=== PATIENT | male | born 1935 | race Caucasian/White ===

== ENCOUNTER 2016-12-22 11:06 | Inpatient (IN) ==
[2016-12-22] MEDS ORDERED: ASPIRIN PO STA (11:16)
[2016-12-22 12:06] LABS: MANUAL DIFF NEEDED? NO
--- NOTE | 2016-12-22 12:09 | Diag Imaging Result Document ---
PROCEDURE NAME: CHEST-2 VIEWS - 12/22/2016 PA AND LATERAL RADIOGRAPH OF THE CHEST: COMPARISON: 07/21/2016. FINDINGS: The lungs are grossly clear. There is no discrete pleural fluid collection or evidence of pneumothorax. The cardiomediastinal silhouette and upper airway are grossly unremarkable. IMPRESSION: No evidence of acute chest pathology.
--- NOTE | 2016-12-22 12:15 | PROVIDER DOCUMENTATION ---
This chart was entered by Soniya Samuels Scribe, acting as scribe for Danni Post MD. HPI-Chest Pain - General Chief Complaint: Chest Pain Stated Complaint: HEAVINESS IN CHEST/DISORIENTED Time Seen by Provider: 12/22/16 11:20 Source: patient Allergies/Adverse Reactions: Patient Allergies Allergy/AdvReac Type Severity Reaction Status Date / Time Sulfa (Sulfonamide Allergy RASH Verified 12/22/16 13:14 Antibiotics) adhesive AdvReac ITCHING Verified 12/22/16 13:14 Home Medications: Home Medication List Medication Instructions Recorded Confirmed Last Taken Type Atorvastatin Calcium [Lipitor] 20 mg PO QHS 04/02/14 12/22/16 12/22/16 08:00 History Insulin Glargine [Lantus] 50 unit SUBQ BID 04/02/14 12/22/16 1 Day Ago History Insulin Glulisine [Apidra] 40 unit SUBQ QAM & NOON 03/10/15 12/22/16 1 Day Ago History Insulin Glulisine [Apidra] 40 unit SUBQ QHS 05/08/16 12/22/16 1 Day Ago History Lorazepam [Ativan] 1 mg PO DAILY 05/08/16 12/22/16 12/21/16 20:00 History Pantoprazole Sodium [Protonix] 40 mg PO ACB 05/08/16 12/22/16 12/22/16 08:00 History Insulin Glulisine [Apidra] 40 unit SUBQ ORDERED 07/19/16 12/22/1616 History Morphine E.r. [Ms Contin] 15 mg PO TID 07/19/16 12/22/16 12/22/16 08:00 History Amitriptyline [Elavil] 50 mg PO BID 12/22/16 12/22/16 12/21/16 08:00 History Aspirin [Aspir-Low] 81 mg PO DAILY 12/22/16 12/22/16 12/22/16 08:00 History Carbidopa/Levodopa [Carbidopa-Levo 1 tab PO BID 12/22/16 12/22/16 12/22/16 08: 00 History 25-100 Tab] Carvedilol 6.25 mg PO BID 12/22/16 12/22/16 12/22/16 08:00 History Fexofenadine [Wendy] 180 mg PO DAILY 12/22/16 12/22/16 12/22/16 08:00 History Furosemide 20 mg PO DAILY 12/22/16 12/22/16 12/22/16 08:00 History Glycopyrrolate [Robinul] 1 mg PO DAILY 12/22/16 12/22/16 12/22/16 08:00 History Multivit with Min #56/FA/K/Q10 1 tab PO DAILY 12/22/16 12/22/16 12/22/16 08:00 History [Dekas Plus Chewable Tablet] [place]-3 Fatty Acids/Fish Oil 1 cap PO DAILY 12/22/16 12/22/16 12/22/16 08:00 History [[place] 3 1,000 mg Softgel] Ticagrelor [Brilinta] 90 mg PO BID 12/22/16 12/22/16 12/22/16 08:00 History Valsartan 24 mg PO BID 12/22/16 12/22/16 12/22/16 08:00 History Venlafaxine [Effexor] 37.5 mg PO HS 12/22/16 12/22/16 12/21/16 20:00 History - History of Present Illness-CP Nature of Presenting Problem: PT IS A 81YOM PRESENTING TO THE ED C/O CP. PT HAD A STENT PLACED 3 DAYS PRIOR IN [place] UNDER [address] WITH THC. THIS AM PT BECAME COOL, CLAMMY, DIAPHORETIC, WITH SOME CHEST PAIN. PT TOOK ASA AT HOME BUT DENIES ANY N/V/D, FEVER OR SOB. DURING EXAM PT BECAME CLAMMY AGAIN AND A REPEAT EKG WAS COMPLETED. HE DENIES CP AT THIS TIME. Location: reports: central Chest Pain Radiation: reports: neck (RIGHT NECK), back Quality of Pain: reports: pressure, tightness Severity in ED: mild, moderate Onset/Duration: just prior to arrival Timing: still present, intermittent Context/Activities at Onset: reports: light activity Modifying Factors: improves with: nothing Associated Symptoms: reports: back pain, diaphoresis, weakness. denies: abdominal pain, dizziness, fatigue, fever/chills, nausea, shortness of breath, vomiting Nitro Today/Relief: no nitro taken today Aspirin Treatment Today: 81 mg x 1, 325 mg x 1, provided by ED Prior Chest Pain/Cardiac Workup: reports: cardiac cath (3 DAYS PRIOR), heart attack Similar Symptoms Previously?: Yes Recently Seen Here or By Another Healthcare Provider: Yes (DR LANE DID HEART CATH ON December) Review of Systems - Adult - REVIEW OF SYSTEMS - ADULT Constitutional: reports: no symptoms reported Eyes: reports: no symptoms reported Ears, Nose, Mouth & Throat: reports: no symptoms reported Cardiovascular: reports: see HPI, chest pain. denies: irregular heart rate, syncope Respiratory: reports: no symptoms reported Gastrointestinal: reports: no symptoms reported Genitourinary: reports: no symptoms reported Musculoskeletal: reports: no symptoms reported Integumentary: reports: see HPI, other (CLAMMY, DIAPHORETIC). denies: hair loss , rash, skin thickening Neurological: reports: no symptoms reported Psychiatric: reports: no symptoms reported Endocrine: reports: no symptoms reported Hematologic/Lymphatic: reports: no symptoms reported Allergic/Immunologic: reports: no symptoms reported All Other Systems: Reviewed and Negative Past History - Adult - PAST MEDICAL HISTORY-ADULT Review of Records: reports: Old Records Reviewed, Nursing Assessment Review, Medications Reviewed, Social history reviewed & non-contributory. Major Childhood Illnesses: reports: denies history Cardiovascular: reports: CAD, HTN Respiratory: reports: denies history Gastrointestinal: reports: cancer (colon) Obstetrical/Gynecological: reports: denies history Genitourinary: reports: denies history Musculoskeletal: reports: denies history Neurological: reports: denies history Endocrine/Immune: reports: Diabetes Other Conditions: reports: other (neuropathy, decrease of feeling in his jayna LE from the knees down) - PRIOR SURGERIES/PROCEDURES Surgical/Procedure History: reports: cholecystectomy, other (colon surgery) - IMMUNIZATION STATUS Childhood Immunizations: See Nurse Assessment Flu Vaccine: See Nurse Assessment - FAMILY HISTORY Family History: reviewed, not pertinent - SOCIAL HISTORY Smoking: denies, non-smoker Substance Use: none/never, denies Alcohol Use Frequency: never Living Situation: family Physical Exam-General - PHYSICAL EXAM-ADULT Initial Vital Signs Reviewed: Yes - CONSTITUTIONAL General Appearance: appears well, alert, no apparent distress, anxious. negative: slow to respond, combative - EYES Eyes: PERRL/EOMI - HEAD, EARS, NOSE, MOUTH & THROAT HENMT: normocephalic/atraumatic - NECK Neck: non-tender, full range of motion - RESPIRATORY Respiratory: chest non-tender, lungs clear, normal breath sounds, no pleuratic chest pain, no respiratory distress - CARDIOVASCULAR Cardiovascular: normal peripheral pulses, regular rate, rhythm, no edema, no gallop, no JVD, no murmur - GASTROINTESTINAL (ABDOMEN) Abdominal Exam: normal bowel sounds, non tender, soft, no organomegaly, no pulsatile mass - MUSCULOSKELETAL Back Exam: normal inspection, no CVA tenderness, no vertebral tenderness, CVA tenderness, decreased range of motion Extremity: normal range of motion, non-tender, normal gait - SKIN Integumentary: normal color, normal turgor, warm/dry - NEUROLOGIC Neurologic: grossly normal, no motor/sensory deficits - PSYCHIATRIC Psych/Mental Status: normal mood/affect, normal thought content, normal thought process, oriented x 3 Progress - PLAN OF CARE/RESULTS Progress/Plan/Lab Results: Vital Signs - 8 hr 12/22/16 11:14 12/22/16 13:12 12/22/16 13:24 Temperature 99.0 F Pulse Rate 97 H 91 H 90 Respiratory Rate 18 19 18 Blood Pressure 136/71 104/55 104/55 O2 Sat by Pulse Oximetry 99 94 L 95 Laboratory Results - last 24 hr 12/22/16 12/22/16 12/22/16 11:52 11:52 11:52 WBC 7.78 RBC 5.21 Hgb 15.0 Hct 44.7 MCV 85.8 MCH 28.8 MCHC 33.6 RDW Std Deviation 13.7 Plt Count 245 MPV 10.1 Immature Gran % (Auto) 0.0 Neut % (Auto) 60.3 Lymph % (Auto) 25.4 Mcdonough % (Auto) 8.9 Eos % (Auto) 5.0 Baso % (Auto) 0.4 Immature Gran # (Auto) 0.00 Neut # (Auto) 4.69 Lymph # (Auto) 1.98 Mcdonough # (Auto) 0.69 H Eos # (Auto) 0.39 Baso # (Auto) 0.03 PT INR PTT (Actin FS) D-Dimer 0.41 Sodium 133 L Potassium 4.2 Chloride 95 L Carbon Dioxide 24 L Anion Gap 14 BUN 18 Creatinine 1.2 Estimated GFR/1.73 m2 58 BUN/Creatinine Ratio 15 Glucose 297 H Calculated Osmolality 279 Calcium 8.8 Magnesium 1.4 L Total Bilirubin 0.62 AST 18 ALT 8 L Alkaline Phosphatase 143 H Creatine Kinase 277 H Creatine Kinase Index 2.9 H CK-MB (CK-2) 8.16 H Troponin T [id number] Pept Total Protein 7.1 Albumin 3.9 Globulin 3.2 Albumin/Globulin Ratio 1.2 12/22/16 12/22/16 12/22/16 11:52 11:52 11:52 WBC RBC Hgb Hct MCV MCH MCHC RDW Std Deviation Plt Count MPV Immature Gran % (Auto) Neut % (Auto) Lymph % (Auto) Mcdonough % (Auto) Eos % (Auto) Baso % (Auto) Immature Gran # (Auto) Neut # (Auto) Lymph # (Auto) Mcdonough # (Auto) Eos # (Auto) Baso # (Auto) PT 9.9 INR 0.95 PTT (Actin FS) 27.2 D-Dimer Sodium Potassium Chloride Carbon Dioxide Anion Gap BUN Creatinine Estimated GFR/1.73 m2 BUN/Creatinine Ratio Glucose Calculated Osmolality Calcium Magnesium Total Bilirubin AST ALT Alkaline Phosphatase Creatine Kinase Creatine Kinase Index CK-MB (CK-2) Troponin T 0.033 [id number] Pept 332 Total Protein Albumin Globulin Albumin/Globulin Ratio Orders Category Date Time Status Cardiac Monitoring DIRECTED Care 12/22/16 11:16 Active Saline Loc NOW Care 12/22/16 11:16 Active CHEST-2 VIEWS [RAD] Stat Exams 12/22/16 11:16 Draft CBC WITH ELECTRONIC DIFF [HEME] Stat Lab 12/22/16 11:52 Completed CK PROFILE [SP CHEM] Stat Lab 12/22/16 11:52 Completed CK PROFILE [SP CHEM] Urgent Lab 12/22/16 14:41 Ordered COMPREHENSIVE METABOLIC PANEL [CHEM] Stat Lab 12/22/16 11:52 Completed D-DIMER [CHEM] Stat Lab 12/22/16 11:52 Completed MAGNESIUM [CHEM] Stat Lab 12/22/16 11:52 Completed PRO B-NATRIURETIC PEPTIDE Stat Lab 12/22/16 11:52 Completed PROTIME WITH INR [COAG] Stat Lab 12/22/16 11:52 Completed PTT [COAG] Stat Lab 12/22/16 11:52 Completed TROPONIN T Stat Lab 12/22/16 11:52 Completed TROPONIN T Urgent Lab 12/22/16 14:41 Ordered Aspirin Med 12/22/16 11:16 Discontinued 325 mg PO STAT STA Magnesium Sulfate 2 gm/S.w.i. [Magnesium Sulfate 2 gm/S Med 12/22/16 12:59 Discontinued .w.i] 2 gm in 50 ml IV NOW Nitroglycerin Med 12/22/16 14:28 Discontinued 0.5 inch TOP NOW ONE EKG [EKG] Stat Ther 12/22/16 11:16 Ordered Result Diagrams: 12/22/16 11:52 12/22/16 11:52 - CONSULTS/PCP/HOSPITALIST Notification #1 *Consult/PCP/Hospitalist*: [facility] Time Discussed: 13:33 ([facility] WILL ACCEPT PT FOR TRANSFER IF PTS CARDIAC ENZYMES ELEVATED) Reason/Comments: [facility] REQUESTS PT TO BE CONSULTED WITH LOCAL CARDIOLOGY FIRST Consult Disposition: other #2 Consult: LUIS Time Discussed: 13:34 (DR SMITH SUGGESTS PT TO BE TRANSFERED TO [facility] BUT WILL WAITON LABS TO MAKE FINAL DECISION) Consult Disposition: other Time Discussed: 14:55 Reason/Comments: Admit to Dr. Carrion Consult Disposition: Admit Departure - Departure Time of Disposition Decision: 14:55 DIAGNOSIS: Post-op pain Chest pain Qualifiers: Chest pain type: unspecified Qualified Code(s): R07.9 - Chest pain, unspecified Disposition: ADMITTED INPATIENT 09 Certified Medical Emergency: Emergent Condition: Stable Referrals and Follow-Ups: Dez Galicia MD [Primary Care Provider] - - Critical Care Note This patient required my direct & personal management of CC.: No This chart was documented by the indicated scribe, (Soniya Samuels Scribe) and accurately reflects the services I performed and decisions made by me, Danni Post MD, as attested by the provider's signature.
--- NOTE | 2016-12-22 12:15 | ED EKG INTERP ---
This chart was entered by Soniya Samuels Scribe, acting as scribe for Danni Post MD. EKG Interpretation - EKG Time of EKG reading by physician:: 11:41 EKG Read and Signed by:: Danni Post EKG Interpretation (*Must complete 3 of following elements*): Abnormal Rate: 93 Rhythm: sr w/1st degree AV BLOCK Vale: left QRS: LBB Prior EKG Comparison: unchanged from prior This chart was documented by the indicated scribe, (Soniya Samuels Scribe) and accurately reflects the services I performed and decisions made by Sincere pettit Wenli X, MD, as attested by the provider's signature.
--- NOTE | 2016-12-22 12:15 | ED EKG INTERP ---
This chart was entered by Soniya Samuels Scribe, acting as scribe for Danni Post MD. EKG Interpretation - EKG Time of EKG reading by physician:: 11:12 EKG Read and Signed by:: Danni Post EKG Interpretation (*Must complete 3 of following elements*): Abnormal Rate: 92 Rhythm: SR W/ 1ST DEGREE AV BLOCK [place]: left QRS: LBB This chart was documented by the indicated scribe, (Soniya Samuels Scribe) and accurately reflects the services I performed and decisions made by me, Danni Post MD, as attested by the provider's signature.
[2016-12-22 12:17] LABS: BASO% 0.4 % (0.0-0.8); EOS# 0.39 X1000 (0.0-0.7); HEMATOCRIT 44.7 % (42.0-52.0); LYMPH# 1.98 X1000 (1.2-3.4); LYMPH% 25.4 % (20.5-51.1); MCH 28.8 PG (27-31); MCHC 33.6 g/dL (33-37); MCV 85.8 FL (81-99); MONO# 0.69 X1000 (0.11-0.59); MONO% 8.9 % (1.7-9.3); MPV 10.1 FL (7.4-10.4); NEUT% 60.3 % (42.2-75.2); PLT 245 X1000 (130-400); RBC 5.21 XMIL (4.7-6.1)
[2016-12-22 12:20] LABS: INR 0.95; PROTIME 9.9 Seconds (9.2-11.7); PTT 27.2 Seconds (22.0-36.0)
[2016-12-22 12:32] LABS: ALBUMIN 3.9 g/dL (3.5-5.0); CALCIUM 8.8 mg/dL (8.8-10.2); MAGNESIUM 1.4 mg/dL (1.5-2.7); POTASSIUM 4.2 mmol/L (3.5-5.1); TOTAL BILIRUBIN 0.62 mg/dL (0.20-1.00); TOTAL PROTEIN 7.1 g/dL (6.3-8.3)
[2016-12-22] MEDS ORDERED: MAGNESIUM SULFATE 2 GM/S.W.I. 2 GM/50 ML IVPB IV ONE (12:59)
[2016-12-22 13:10] LABS: CK INDEX 2.9 (0.0-2.5); CK-MB 8.16 ng/mL (0.0-5.0)
[2016-12-22] MEDS ORDERED: NITROGLYCERIN TOP ONE (14:28)
--- NOTE | 2016-12-22 15:22 | CONSULTATION ---
DATE OF CONSULTATION: 12/22/2016 Mr. Umaña is a 81-year-old gentleman with known history of coronary artery disease, LV dysfunction, heart failure. Underwent stent placement to his right coronary artery on last. Had been discharged from [facility]. Subsequently he had episode off chest discomfort associated with diaphoresis, shortness of breath yesterday and this morning he had other episodes of chest discomfort associated with diaphoresis and shortness of breath. He came to the emergency room. Electrocardiogram did not reveal any acute ST-T changes. At the time of my examination patient was pain free. He has been taking all his medications. He is also a diabetic and has been taking his medicines regularly. Since discharge from the hospital he has been started on Brilinta and all other of his home medications were continued. There are no palpitations. There is no syncope. REVIEW OF SYSTEMS: Fourteen point review of systems was done. GI System: There is no history of nausea, vomiting, diarrhea. There is no history of hematemesis or melena. Central Nervous System: No focal weakness to suggest a CVA or TIA. Genitourinary: There is no dysuria or hematuria. Respiratory: There is no history of cough, expectoration, hemoptysis. There is no history of fevers or chills. PAST MEDICAL HISTORY: 1. Coronary artery disease, status post multiple stent placements in the past, with last stent placement to the right coronary artery distal with a drug-eluting stent last . 2. History of recent worsening of LV dysfunction. 3. Diabetes. 4. He has a skin cancer on his scalp, undergone radiation therapy for the same. 5. Parkinson's features. 6. Diabetes mellitus. 7. Hyperlipidemia. HOME MEDICATIONS: Include Lantus insulin 550 units subcutaneous b.i.d. Atorvastatin 20. 40 units subcu in a.m. and noon time. Lorazepam 1 mg p.o. at bedtime. Protonix 40. Morphine extended release 15 mg p.o. t.i.d. for chronic pain. Robinul 1 mg p.o. daily. Aspirin 81 mg a day. Brilinta 90 mg p.o. b.i.d. Carbidopa L-dopa 1 tablet p.o. b.i.d. Lasix 20. Combination of valsartan, sacubitril 20 mg 1 tablet twice a day. Wendy 120. Effexor 37.5. Coreg 6.25 mg. ALLERGIES: He is allergic to sulfonamides and adhesive. SOCIAL HISTORY: He does not smoke. Does not drink. There is no history of alcohol abuse. PHYSICAL EXAMINATION: Vital Signs: Blood pressure was 108/70. Cardiovascular System: Normal jugular venous pressure. There is no thyromegaly. No carotid bruit. First and second heart sounds were heard. There is no S3 gallop. Respiratory System: Normal air entry. There are no crepitations and rhonchi. Abdomen: Soft, nontender. There was no guarding or rigidity. Bowel sounds were heard. Central nervous system: Alert, was moving extremities. Extremities: Examination of extremities revealed no pedal edema. Electrocardiogram first-degree AV block. Left bundle branch block. ASSESSMENT AND PLAN: Mr. Luis Fernando Umaña is a 81-year-old gentleman, had 2 episodes of chest discomfort associated with diaphoresis. Currently he is pain-free he underwent stent placement Drug-eluting to the right coronary artery this . He is currently stable. LABORATORY EXAMINATION: Revealed sodium 133, potassium 4.2. BUN 18, creatinine 1.2. CK 277, CK- MB 8, troponin normal at 0.033. He had similar enzymes at discharge from [facility]. Hematology: Hemoglobin 15, hematocrit 44, platelet count of 245,000. We will get serial cardiac enzymes. I will add nitropaste to his medical regimen and we will follow hospital course. Depending on his symptoms and cardiac enzymes we may need to perform a left heart catheterization which if required we will perform on Saturday. He has severe LV dysfunction. His coronary artery disease, is out of proportion to his LV dysfunction and this is recent worsening of his LV dysfunction. He is on multiple medications with beta-blockers and SHANT inhibitors. I have not made any changes. He is on insulin. Probably has a small vessel disease as well to account for his worsening LV dysfunction. I would recommend continuing his current medications for insulin. He has been diagnosed to have Parkinson's disease. He is on carbidopa. I have not made any changes. Hyperlipidemia, continue with his Lipitor. He has anxiety disorder, depression. I have not made any changes. He has been treated with chemotherapy/radiation for a skin cancer and is on medications for pain management as well. Would recommend continuing that. Thank you for the consult. We will follow hospital course. cc: Jordan Carlton MD
[2016-12-22 15:53] LABS: CK INDEX 2.8 (0.0-2.5); CK-MB 6.98 ng/mL (0.0-5.0)
[2016-12-22] MEDS ORDERED: APIDRA SUBQ SCH (16:53)
[2016-12-22] MEDS ORDERED: AMBIEN PO PRN (16:53)
[2016-12-22] MEDS ORDERED: TYLENOL PO PRN (16:53)
[2016-12-22] MEDS ORDERED: ZOFRAN IV PRN (16:53)
--- NOTE | 2016-12-22 16:57 | HISTORY AND PHYSICAL ---
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 Jordan Carlton. CHIEF COMPLAINT: Chest pain. HISTORY OF PRESENT ILLNESS: Mr. Umaña is a pleasant 81-year-old male with a history of known coronary artery disease status post stenting to the RCA only 3 days ago on at [facility]. He also has a history of diabetes mellitus on insulin, skin cancer on his scalp, Parkinson's and hyperlipidemia. He started having chest pain yesterday. He had 1 episode of chest pain while urinating. He reported some midsternal chest pain radiating up to his right ear. He was mildly diaphoretic. Today he was urinating and had another episode of midsternal chest pain this time radiating up to the right ear and right jaw. This is associated with shortness of breath and diaphoresis. There was no nausea or vomiting. He reports this is similar discomfort he felt previously prior to his stenting. He has been on Brilinta and aspirin since his stent. He has taken it every day. He denies any fever, chills, cough or congestion. No lower extremity edema or orthopnea. Currently he is pain-free. His EKG does not show anything acute, Dr. Carlton has already been consulted and seen the patient. Patient is likely going to be scheduled for heart catheterization on Saturday unless his cardiac enzymes turn positive and his pain continues to worsen then we will transfer him to [facility]. Currently he is stable as are his vital signs. PAST MEDICAL HISTORY: 1. Severe coronary artery disease with recent stenting to the RCA. 2. Systolic congestive heart failure with a known EF of about 25%. 3. Diabetes mellitus on home insulin. 4. Skin cancer status post excision from his scalp. 5. Parkinson disease. 6. Hyperlipidemia. 7. Chronic pain. 8. GERD. 9. Colon cancer. 1. Bladder cancer. SURGERIES: Cholecystectomy, partial colectomy, coronary stenting. SOCIAL HISTORY: Patient denies tobacco, alcohol or drug use. His is at the bedside. REVIEW OF SYSTEMS: Fourteen-point review of systems obtained and found to be negative with the exception of the HPI. FAMILY HISTORY: Noncontributory. ALLERGIES: Sulfa and adhesives. HOME MEDICATIONS: Elavil 50 mg b.i.d., aspirin 81 mg daily, Lipitor 20 mg at bedtime, carbidopa/levodopa 1 b.i.d., carvedilol 6.25 mg b.i.d., Wendy 180 mg p.o. daily, Lasix 20 mg daily, Robinul 1 mg daily, Lantus 50 units subcu b.i.d., Apidra 40 units subcutaneous as directed, Ativan 1 mg daily, MS Contin 15 mg t.i.d., multivitamin daily, [place]-3 fish oil daily, Protonix 40 mg p.o. as directed, Brilinta 90 mg b.i.d., valsartan 24 mg b.i.d., Effexor 37.5 mg p.o. at bedtime . PHYSICAL EXAMINATION: VITAL SIGNS: Blood pressure is 120/72, heart rate is 82, respiratory rate 18, O2 saturation is 94% on room air. GENERAL: This is an elderly male lying in hospital bed in no acute distress. NEUROLOGIC: The patient is awake, alert and oriented. He follows commands without focal deficits. HEENT: He head is normocephalic. He has about a 2 cm depth surgical wound to the crest of his scalp. There are a few different areas of varying degree of healing. Overall there is no erythema or edema. Pupils are equal, round, reactive to light. Oral mucosa is moist. Trachea is midline. Neck is supple. No JVD. No carotid bruits. CHEST: Clear to auscultation bilaterally. CV: Regular rate and rhythm. S1-S2 is noted. No murmurs, gallops, clicks, or rubs. GI: Soft, nondistended, nontender. Bowel sounds are positive. EXTREMITIES: Without edema, clubbing or cyanosis. Pulses are palpable bilaterally. DIAGNOSTIC DATA: WBC 7.7, hemoglobin 15, hematocrit 44.7, platelet count 245, 000. PT 9.9, INR 0.95, sodium 133, potassium 4.2, chloride 95, CO2 24, anion gap 14, BUN 18, creatinine 1.2, glucose is 297, calcium 8.8, magnesium 1.4, total bilirubin 0.62, AST 18, ALT 8 , alkaline phosphatase 143, CK 246, CK index is pending, CK-MB is pending. Troponin is 0.027, albumin 3.9. ASSESSMENT AND PLAN: 1. Unstable angina: We will continue his home medications including dual anti- platelet therapy. Dr. Carlton is already on board. We will continue with nitrates and pain medicine as needed. Will continue to trend his enzymes and monitor telemetry closely. 2. Hypomagnesemia: This is being replaced currently in the ER. 3. Diabetes mellitus: Will check hemoglobin A1c and continue all of his home medications. 4. Hypertension: Chronic and stable, continue home medications. 5. Hyperlipidemia: Chronic and stable, continue home medications, a.m. lipid panel has been ordered. 6. Parkinson disease: Chronic and stable, continue his home medications. 7. Gastroesophageal reflux disease: Chronic and stable, continue home medications. 8. Deep vein thrombosis prophylaxis will be provided with Lovenox. Further recommendations to follow. Dictated by KIMO Irvin for Shemar Stover MD cc: KIMO Irvin MD MTD
[2016-12-22 17:42] LABS: HEMOGLOBIN A1C 7.8 % (4.8-6.0)
[2016-12-22] MEDS: HUMALOG SUBQ SCH ×2 (18:44→22:05)
[2016-12-22 19:08] LABS: CK INDEX 2.9 (0.0-2.5); CK-MB 6.32 ng/mL (0.0-5.0)
[2016-12-22] MEDS ORDERED: INSULIN PEN NEEDLES ONE (21:46)
[2016-12-22] MEDS: SINEMET 25/100 PO SCH (22:00)
[2016-12-22] MEDS: LIPITOR PO SCH (22:00)
[2016-12-22] MEDS: COREG PO SCH (22:00)
[2016-12-22] MEDS: ELAVIL PO SCH (22:00)
[2016-12-22] MEDS: LANTUS SUBQ SCH (22:05)
[2016-12-22] MEDS: MS CONTIN PO SCH (22:05)
[2016-12-22] MEDS: DIOVAN PO SCH (22:05)
[2016-12-22] MEDS: APIDRA SUBQ SCH (22:05)
[2016-12-22] MEDS: BRILINTA PO SCH (22:05)
[2016-12-22] MEDS: EFFEXOR PO SCH (22:05)
[2016-12-23 02:02] LABS: CK INDEX 2.7 (0.0-2.5); CK-MB 5.57 ng/mL (0.0-5.0)
[2016-12-23 05:48] LABS: AGAP 11; BUN 17 mg/dL (8-22); CALCIUM 8.9 mg/dL (8.8-10.2); CHLORIDE 102 mmol/L (98-107); COSMO 282; HDL 45 mg/dL (35-55); LDL 35 mg/dL; SODIUM 139 mmol/L (136-145); TCO2 26 mmol/L (25-35); TRIGLYCERIDES 193 mg/dL (39-160); VLDL 39 mg/dL
[2016-12-23 05:49] LABS: HEMATOCRIT 44.7 % (42.0-52.0); HEMOGLOBIN 14.7 g/dL (14.0-18.0); MCH 28.8 PG (27-31); MCHC 32.9 g/dL (33-37); MCV 87.6 FL (81-99); MPV 9.8 FL (7.4-10.4); RBC 5.1 XMIL (4.7-6.1)
[2016-12-23] MEDS: HUMALOG SUBQ SCH ×4 (06:00→20:59)
[2016-12-23] MEDS: PROTONIX PO SCH (06:01)
[2016-12-23] MEDS ORDERED: LOVENOX SUBQ SCH (09:00)
[2016-12-23] MEDS ORDERED: ALLEGRA PO SCH (09:00)
[2016-12-23] MEDS ORDERED: LASIX PO SCH (09:00)
[2016-12-23] MEDS ORDERED: PATIENT'S OWN MED PO SCH (09:00)
[2016-12-23] MEDS ORDERED: ATIVAN PO SCH ×2 (09:00→09:28)
[2016-12-23] MEDS ORDERED: FISH OIL CONCENTRATE PO SCH (09:00)
[2016-12-23] MEDS ORDERED: ASPIRIN EC PO SCH (09:00)
[2016-12-23] MEDS ORDERED: ROBINUL PO SCH (09:00)
[2016-12-23] MEDS: MS CONTIN PO SCH ×3 (09:14→20:56)
[2016-12-23] MEDS: COREG PO SCH ×2 (09:14→20:57)
[2016-12-23] MEDS: DIOVAN PO SCH (09:14)
[2016-12-23] MEDS: SINEMET 25/100 PO SCH ×2 (09:15→20:57)
[2016-12-23] MEDS: ELAVIL PO SCH ×2 (09:15→20:56)
[2016-12-23] MEDS: BRILINTA PO SCH ×2 (09:15→20:56)
[2016-12-23] MEDS: LANTUS SUBQ SCH ×2 (09:48→21:01)
[2016-12-23] MEDS: APIDRA SUBQ SCH ×2 (09:49→11:53)
--- NOTE | 2016-12-23 15:44 | PROGRESS NOTE ---
DATE: 12/23/2016 SUBJECTIVE: Today Mr. Umaña refers to be doing fine. He did have another episode of some chest discomfort early this morning but that has resolved. OBJECTIVE: Vital signs: Blood pressure is 139/83, pulse of 95, respirations 20, temperature 99.4 degrees. Patient was saturating 98% on nasal cannula. General: Mr. Umaña is a 81-year-old male. He is in bed. He did not seem to be in any distress. HEENT: Mucosa is pink and moist. Anicteric. Acyanotic. Neck: Supple. Chest: Good air entry bilaterally. No crepitations. No rhonchi. Cardiovascular: Regular rate and rhythm. Abdomen: Soft, nontender. Extremities: No pedal edema. 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 There is no focal neurological deficit. Skin: There is about 2 x 2 cm ulcerated lesion on the left aspect of the frontoparietal scalp which patient has had for a very long time. According to him it is a skin cancer. He has had multiple radiations on that lesion. LABORATORY DATA: WBC is 8.46, hemoglobin is 14.7, platelet count of 225,000. Chemistry is reviewed, completely normal. Troponins have been 4 times normal. ASSESSMENT: 1. Chest pain, likely due to unstable angina. Patient just had a PCI intervention during the course of last week in [place]. He is currently on dual antiplatelet therapy. Dr. Carlton has seen him and there is a plan to get him transferred to [place] for further evaluations. 2. Diabetes mellitus, stable. 3. Hypertension, controlled. 4. Dyslipidemia. 5. History of Parkinson disease. Patient is on carbidopa levodopa. 6. History of scalp skin cancer, noted. PLAN: So in general, I think Mr. Umaña is stable. We are going to continue with his current medications and hopefully get him to [place] either today or tomorrow, pending cardiology arrangements. cc: Shemar Stover MD
[2016-12-23] MEDS ORDERED: MORPHINE IV ONE (18:36)
[2016-12-23] MEDS ORDERED: NITROGLYCERIN SL PRN ×2 (18:38→19:01)
[2016-12-23] MEDS: NITROGLYCERIN TOP SCH (19:00)
[2016-12-23] MEDS ORDERED: INSULIN PEN NEEDLES ONE (20:52)
[2016-12-23] MEDS: EFFEXOR PO SCH (20:56)
[2016-12-23] MEDS: LIPITOR PO SCH (20:57)
[2016-12-23] MEDS ORDERED: ENTRESTO 24 MG-26 MG TABLET PO SCH (21:00)
[2016-12-24] MEDS: APIDRA SUBQ SCH (03:55)
[2016-12-24] MEDS: NITROGLYCERIN TOP SCH (03:56)
--- NOTE | 2016-12-24 05:34 | EKG Report ---
Test Performed on : 12/23/2016 6:28:58 PM Test Reason : chest pain Blood Pressure : / mmHG Vent. Rate : 101 BPM Atrial Rate : 101 BPM P-R Int : 202 ms QRS Dur : 138 ms QT Int : 380 ms P-R-T Axes : 062 -53 105 degrees QTc Int : 492 ms Sinus tachycardia. Left axis deviation Left ventricular hypertrophy with QRS widening and repolarization abnormality Abnormal ECG When compared with ECG of 23-DEC-2016 07:14, (Unconfirmed) aberrant conduction. is no longer present Left bundle branch block is no longer present Confirmed by Mau Lackey MD ([id number]) on 12/24/2016 11:24:54 AM
--- NOTE | 2016-12-24 05:35 | EKG Report ---
Test Performed on : 12/23/2016 07:14:26 AM Test Reason : "Palpitations" Blood Pressure : / mmHG Vent. Rate : 081 BPM Atrial Rate : 081 BPM P-R Int : 226 ms QRS Dur : 144 ms QT Int : 430 ms P-R-T Axes : 051 -51 104 degrees QTc Int : 499 ms Sinus rhythm. with 1st degree AV block. with premature atrial complexes. with aberrant conduction. Left axis deviation Left bundle branch block Abnormal ECG When compared with ECG of 22-DEC-2016 11:41, aberrant conduction. is now present Confirmed by Mau Lackey MD ([id number]) on 12/24/2016 11:23:17 AM
--- NOTE | 2016-12-24 06:13 | EKG Report ---
Test Performed on : 12/22/2016 11:41:10 AM Test Reason : Chest Pain Blood Pressure : / mmHG Vent. Rate : 093 BPM Atrial Rate : 093 BPM P-R Int : 216 ms QRS Dur : 142 ms QT Int : 412 ms P-R-T Axes : 062 -49 096 degrees QTc Int : 512 ms Sinus rhythm. with 1st degree AV block. Left axis deviation Left bundle branch block Abnormal ECG When compared with ECG of 22-DEC-2016 11:12, (Unconfirmed) No significant change was found Unconfirmed Result
[2016-12-24] MEDS: HUMALOG SUBQ SCH (06:18)
[2016-12-24 06:25] LABS: HEMATOCRIT 41.7 % (42.0-52.0); HEMOGLOBIN 13.8 g/dL (14.0-18.0); MCH 28.9 PG (27-31); MCHC 33.1 g/dL (33-37); MCV 87.4 FL (81-99); MPV 10.2 FL (7.4-10.4); RBC 4.77 XMIL (4.7-6.1)
[2016-12-24] MEDS: PROTONIX PO SCH (06:31)
[2016-12-24 06:43] LABS: CALCIUM 9.4 mg/dL (8.8-10.2)
[2016-12-24 07:07] VITALS: BP 138/81
[2016-12-24] MEDS: BRILINTA PO SCH (07:34)
[2016-12-24] MEDS: COREG PO SCH (07:34)
--- NOTE | 2016-12-25 08:49 | DISCHARGE SUMMARY ---
ADMISSION DATE: 12/22/2016 DISCHARGE DATE: 12/24/2016 DATE OF TRANSFER TO [facility]: 12/24/2016. PERTINENT PROCEDURES: Chest x-ray showed no evidence of acute chest pathology. First EKG showed sinus rhythm, 1st degree AV block and a left bundle branch block. Second EKG was unchanged from prior. Final EKG showed sinus tachycardia with left axis deviation and LVH, QRS widening and repolarization abnormality. DISCHARGE DIAGNOSES: 1. Chest pain likely secondary to unstable angina. The patient just received percutaneous coronary intervention over the course of the last week at [facility]. He is currently on dual anti-platelet therapy. He was evaluated by cardiology. The patient is being transferred to [facility] for further evaluation. 2. Diabetes mellitus, stable. 3. Hypertension, controlled. 4. Dyslipidemia. Continue home medicines. 5. Parkinson's disease history. Continue on levodopa. 6. Scalp cancer history noted. HOSPITAL COURSE: Mr. Umaña is a 81-year-old male with a history of known coronary artery disease status post stenting of the RCA 3 days prior to his admission at [facility]. Also, he has a history of diabetes mellitus, on insulin; skin cancer on the scalp; Parkinson's, as well as hyperlipidemia. The patient started having chest pain the day before his admission. He had one episode of chest pain while urinating. He reported some midsternal pain radiating up to his right ear. It made him mildly diaphoretic. Today, with his urination, he had another episode of midsternal chest pain that radiated up to the right ear into the right jaw associated with shortness of breath and diaphoresis. No nausea or vomiting. He reported similar discomfort he felt previously prior to his stenting. The patient has been on Brilinta and aspirin since his stent and has taken it every day. His EKG did not show anything acute. Cardiology had already evaluated the patient. They recommended to continue his current medications. We did add nitropaste to his medical regimen. They did initially plan to keep the patient here at [facility] and, if he had positive cardiac enzymes as well as symptoms that they might perform a left heart catheterization on Saturday; however, they have decided to transfer the patient to [facility] for further treatment. n abdominal status who was transferred to [facility], Cardiology. Dictated by KIMO Schofield for Shemar Stover MD cc: MD Dez Prince MD
== END 2016-12-24 07:40 | disposition short-term general hospital (02) ==
LOC: ED 11:06 → EDIPHOLD 15:58 → 3S 18:39
PROVIDERS: ATTEND Internal Medicine

== ENCOUNTER 2018-09-22 14:51 | Inpatient (IN) ==
--- NOTE | 2018-09-22 15:46 | EKG Report ---
Test Performed on : 09/22/2018 3:06:58 PM Test Reason : fall for unknown reason Blood Pressure : / mmHG Vent. Rate : 095 BPM Atrial Rate : 095 BPM P-R Int : 158 ms QRS Dur : 160 ms QT Int : 434 ms P-R-T Axes : 044 133 091 degrees QTc Int : 545 ms Atrial-sensed ventricular-paced rhythm with occasional premature ventricular complexes. Abnormal ECG When compared with ECG of 08-JUL-2018 23:38, (Unconfirmed) premature ventricular complexes. are now present Vent. rate has increased BY 18 BPM Unconfirmed Result
--- NOTE | 2018-09-22 16:03 | PROVIDER DOCUMENTATION ---
This chart was entered by Yissel Luevano Scribe, acting as scribe for Mela Lim MD. HPI-General Adult - General Chief Complaint: Fall Stated Complaint: FALL Time Seen by Provider: 09/22/18 15:29 Source: patient, family Allergies/Adverse Reactions: Patient Allergies Allergy/AdvReac Type Severity Reaction Status Date / Time Sulfa (Sulfonamide Allergy RASH Verified 08/01/18 21:30 Antibiotics) adhesive AdvReac ITCHING Verified 08/01/18 21:30 Home Medications: Home Medication List Medication Instructions Recorded Confirmed Last Taken Type Atorvastatin Calcium [Lipitor] 20 mg PO QPM 01/29/17 07/09/18 05/22/17 18:00 History Carbidopa/Levodopa [Sinemet 25/100] 1 each PO 4XDAY 01/29/17 07/09/18 05/23/17 08:00 History Fish Oil/Dha/Epa [Fish Oil 1,200 1 each PO QAM 01/29/17 07/09/18 05/23/17 08:00 History mg Fish Oil] Furosemide [Lasix] 40 mg PO QAM 01/29/17 07/09/18 05/23/17 08:00 History Glycopyrrolate [Robinul] 1 mg PO QPM 01/29/17 07/09/18 05/23/17 08:00 History Insulin Glargine [Lantus] 40 unit SUBQ BID 01/29/17 07/09/18 05/23/17 08:00 History Lorazepam [Ativan] 1 mg PO BID 01/29/17 07/09/18 05/22/17 18:00 History Sacubitril/Valsartan [Entresto 24 1 each PO BID 01/29/17 07/09/18 05/23/17 08: 00 History mg-26 mg Tablet] Venlafaxine [Effexor] 75 mg PO QPM 01/29/17 07/09/18 05/22/17 18:00 History Pantoprazole [Protonix] 40 mg PO DAILY 10/06/17 07/09/18 Unknown History Pramipexole [Mirapex] 0.25 mg PO BID 10/06/17 07/09/18 Unknown History Polyethylene Glycol 3350 [Miralax] 17 gm PO DAILY #1 misc 10/08/17 07/09/18 Unknown Rx Multivit-Min/FA/Lycopen/Lutein 1 tab PO DAILY 12/30/17 07/09/18 Unknown History [Centrum Silver Tablet] Multivits,Stress Formula [Stress] 1 tab PO DAILY 12/30/17 07/09/18 Unknown History Vitamin E Mixed [Vitamin E] 1 cap PO DAILY 12/30/17 07/09/18 Unknown History Aspirin [Adult Low Dose Aspirin EC] 81 mg PO DAILY 07/09/18 07/09/18 Unknown History Doxycycline 100 mg PO BID #14 tab 07/09/18 Unknown Rx Insulin Lispro [Humalog] 30 unit SQ TID 07/09/18 07/09/18 Unknown History Levothyroxine Sodium [Synthroid] 25 mcg PO DAILY 07/09/18 07/09/18 Unknown History Metoprolol [Lopressor] 25 mg PO DAILY #30 tab 07/09/18 Unknown Rx Morphine E.r. [Ms Contin] 15 mg PO TID 07/09/18 07/09/18 Unknown History - History of Present Illness -Gen Adult Nature of Presenting Problems: 83 yom presents to ed with cc of right knee, right hand and back of head. Reports knees buckled and fell backwards and hit head. No obvious head injury. No loc. Hx of orthostatic htn. Fell 6 times last week. Review of Systems - Adult - REVIEW OF SYSTEMS - ADULT Constitutional: denies: chills, fever, fatique Eyes: reports: no symptoms reported Ears, Nose, Mouth & Throat: reports: no symptoms reported Cardiovascular: denies: chest pain, irregular heart rate, orthopnea, syncope Respiratory: reports: no symptoms reported Gastrointestinal: denies: abdominal pain, nausea Genitourinary: denies: discharge, flank pain, hematuria, incontinence Musculoskeletal: reports: see HPI, bone pain, joint pain, other (head pain) Integumentary: reports: no symptoms reported Neurological: reports: no symptoms reported Psychiatric: reports: no symptoms reported Endocrine: reports: no symptoms reported Hematologic/Lymphatic: reports: no symptoms reported Allergic/Immunologic: reports: no symptoms reported All Other Systems: Reviewed and Negative Past History - Adult - PAST MEDICAL HISTORY-ADULT Review of Records: reports: Nursing Assessment Review, Medications Reviewed Major Childhood Illnesses: reports: denies history Cardiovascular: reports: CAD, CHF, HTN, hyperlipidemia, [place] Respiratory: reports: denies history Gastrointestinal: reports: cancer (colon) Obstetrical/Gynecological: reports: denies history Genitourinary: reports: denies history Musculoskeletal: reports: denies history Neurological: reports: Parkinson's Endocrine/Immune: reports: Diabetes Other Conditions: reports: other (neuropathy, decrease of feeling in his jayna LE from the knees down) - PRIOR SURGERIES/PROCEDURES Surgical/Procedure History: reports: cholecystectomy, cardiac stent (3), other ( colon surgery, head) - IMMUNIZATION STATUS Childhood Immunizations: See Nurse Assessment Flu Vaccine: See Nurse Assessment - FAMILY HISTORY Family History: reviewed, not pertinent - SOCIAL HISTORY Smoking: non-smoker Substance Use: none/never Physical Exam-General - CONSTITUTIONAL General Appearance: alert, no apparent distress - EYES Eyes: PERRL/EOMI, pink conjunctivae - HEAD, EARS, NOSE, MOUTH & THROAT HENMT: normocephalic/atraumatic, moist mucous membranes - NECK Neck: non-tender, full range of motion, supple - RESPIRATORY Respiratory: chest non-tender, lungs clear, normal breath sounds, no pleuratic chest pain, no respiratory distress, no accessory muscle use - CARDIOVASCULAR Cardiovascular: normal peripheral pulses, regular rate, rhythm, no edema - GASTROINTESTINAL (ABDOMEN) Abdominal Exam: normal bowel sounds, non tender, soft - LYMPHATIC Lymphatic: no adenopathy - MUSCULOSKELETAL Back Exam: normal inspection Extremity: other (right knee lateral aspect inferior joint and inferior to joint swelling with ecchymosis and tenderness, no deformity, pulses good, all other extremities have normal exam and NV intact) Peripheral Pulses: radial (R): 2+, radial (L): 2+, dorsalis-pedis (R): 2+, dorsalis-pedis (L): 2+ - SKIN Integumentary: normal color, normal turgor, warm/dry - NEUROLOGIC Neurologic: grossly normal, no motor/sensory deficits - PSYCHIATRIC Psych/Mental Status: normal mood/affect, normal thought content, normal thought process, oriented x 3 Progress - PLAN OF CARE/RESULTS Progress/Plan/Lab Results: Vital Signs - 8 hr 09/22/18 15:02 Temperature 98.8 F Pulse Rate 95 H Respiratory Rate 23 Blood Pressure 118/71 O2 Sat by Pulse Oximetry 95 work up good except for right knee xray, proximal transverse fx of both fibula and tibia call out to ortho [id number] d/w him HPI exam treatment results, NPO after midnight, admit to hospitalist [id number] HPI exam treatment results, Diagre apprised, have beds at [place]? discharge coordinator checking this out there is an ortho bed at [facility] for pt Result Diagrams: 09/22/18 15:30 09/22/18 15:30 Departure - Departure Date of Disposition Decision: 09/22/18 Time of Disposition Decision: 17:45 DIAGNOSIS: Fall, Parkinsons disease, Tibia/fibula fracture, shaft Disposition: ADMITTED INPATIENT 09 Certified Medical Emergency: Emergent Condition: Good Referrals and Follow-Ups: Dez Galicia MD [Primary Care Provider] - - Critical Care Note This patient required my direct & personal management of CC.: No Attestation - Physician/ LANDON Attestation Patient care was provided by Advanced Practice Provider:: No The physician spent face to face time with patient:: Yes Advanced Practice Provider documentation review:: Supervising physician onsite and consulted in the evaluation and care of this patient. The physician did have a face to face encounter with the patient. This chart was documented by the indicated scribe, (Yissel Luevano Scribe) and accurately reflects the services I performed and decisions made by me, Mela Lim MD, as attested by the provider's signature.
[2018-09-22 16:43] LABS: ALBUMIN 3.7 g/dL (3.5-5.0); CALCIUM 9.1 mg/dL (8.8-10.2); CREATININE 1.2 mg/dL (0.7-1.2); POTASSIUM 4.8 mmol/L (3.5-5.1); TOTAL BILIRUBIN 0.5 mg/dL (0.20-1.00); TOTAL PROTEIN 6.7 g/dL (6.3-8.3)
[2018-09-22 16:49] LABS: BASO# 0.04 X1000 (0.0-0.2); BASO% 0.4 % (0.0-0.8); EOS% 5.1 % (0.0-10.0); HEMATOCRIT 40.1 % (42.0-52.0); HEMOGLOBIN 13.3 g/dL (14.0-18.0); IMM GRAN# 0.02 X1000 (0.0-0.04); IMM GRAN% 0.2 % (0.0-0.5); LYMPH# 1.89 X1000 (1.2-3.4); LYMPH% 19.2 % (20.5-51.1); MCH 29.8 PG (27-31); MCHC 33.2 g/dL (33-37); MCV 89.9 FL (81-99); MONO# 0.77 X1000 (0.11-0.59); MONO% 7.8 % (1.7-9.3); MPV 9.9 FL (7.4-10.4); NEUT% 67.3 % (42.2-75.2); PLT 224 X1000 (130-400); RBC 4.46 XMIL (4.7-6.1); RDW 12.5 % (11.5-14.5); WBC 9.82 X1000 (4.8-10.8)
--- NOTE | 2018-09-22 16:55 | Diag Imaging Result Doc PS360 ---
CT HEAD/C-SPINE W/O CONTRAST - 09/22/2018 INDICATION: fall COMPARISON: 12/20/2017 FINDINGS: Head CT: There is moderate cerebral atrophy. No intracranial mass or hemorrhage. No skull fracture. The sinuses are clear. Cervical spine: Alignment is anatomic. No fracture or subluxation. Stable mild multilevel degenerative disc disease. IMPRESSION: No acute injury. This exam was performed using automated exposure control, adjustment of mA or kV according to patient size, and/or use of iterative reconstruction technique Electronically signed by Octavio Muro 09/22/2018 4:53 PM
--- NOTE | 2018-09-22 17:27 | Diag Imaging Result Doc PS360 ---
KNEE 3 VIEWS RIGHT - 09/22/2018 INDICATION: PAIN TECHNIQUE: Three views COMPARISON: None FINDINGS: There is nondisplaced transverse fracture through the proximal tibia and fibular shaft. There is severe peripheral vascular disease of the popliteal artery. No dislocation. IMPRESSION: Fractures through the proximal tibia and fibular shaft. Electronically signed by Octavio Muro 09/22/2018 5:24 PM
[2018-09-22] MEDS ORDERED: NS 1,000 ML IV ONE (17:44)
[2018-09-22] MEDS ORDERED: DILAUDID IV ONE (17:44)
[2018-09-22] MEDS ORDERED: LOVENOX SUBQ ONE (18:23)
[2018-09-22] MEDS ORDERED: DILAUDID IV PRN ×2 (18:29→19:48)
[2018-09-22] MEDS ORDERED: SODIUM CHLORIDE 0.9% INJ SCH (19:48)
[2018-09-22] MEDS ORDERED: ZOFRAN IV PRN (19:48)
[2018-09-22] MEDS: MIRAPEX PO SCH (22:30)
[2018-09-22] MEDS: ENTRESTO 24 MG-26 MG TABLET PO SCH (22:30)
[2018-09-22] MEDS: EFFEXOR PO SCH (22:30)
[2018-09-22] MEDS: ROBINUL PO SCH (22:30)
[2018-09-22] MEDS: SINEMET 25/100 PO SCH (22:31)
[2018-09-22] MEDS: ATIVAN PO SCH (22:31)
[2018-09-22] MEDS: PROTONIX IV SCH (22:31)
[2018-09-22] MEDS: LIPITOR PO SCH (22:31)
[2018-09-22] MEDS: HUMALOG SUBQ SCH (22:32)
--- NOTE | 2018-09-23 05:44 | HISTORY AND PHYSICAL ---
CHIEF COMPLAINT: Fall, leg pain. HPI: This is an 83-year-old gentleman with a history of Parkinson's, congestive heart failure with an EF of 25%, diabetes mellitus type 2, colon cancer, who presents to the emergency room after falling. He states that his knees buckled. He fell backwards. He has no loss of consciousness. He did state that he fell 6 times last week. He has been falling quite regularly secondary to his Parkinson's. He does complain of right knee, right hand and pain in the back of his head. CT of the head and C-spine revealed no acute injury but x-ray of his right knee revealed fractures throughout the proximal tibia and fibular shaft with severe peripheral vascular disease of the popliteal artery. No dislocation. PAST MEDICAL HISTORY: Parkinson disease, coronary artery disease, CHF with EF of 25%, severe cardiomyopathy predominantly nonischemic, CAD status post stents x3 with the last stent being 3 years ago, pacemaker ICD placement, diabetes mellitus, hypertension, colon cancer status post resection, gastroesophageal reflux disease, anxiety disorder, orthostatic hypotension secondary to Parkinson's. PAST SURGICAL HISTORY: Coronary stents, colon resection, scalp cancer resection and with a graft and defibrillator placement in June 2018. SOCIAL HISTORY: He lives with his family. He denies alcohol, tobacco, or illicit drug use. ALLERGIES: Sulfa and adhesives. HOME MEDICATIONS: A list will be obtained by the nursing staff and once verified we will review and restart as appropriate. REVIEW OF SYSTEMS: Discussed with patient with pertinent positives stated in the HPI. He denied any syncope or dizziness, any chest pain, palpitations, any shortness of breath , cough, fever, chills, any night sweats, any recent weight loss or weight gain, any nausea, vomiting, diarrhea, constipation, black or bloody vomitus or stools, hematuria, dysuria, frequency urgency. PHYSICAL EXAMINATION: GENERAL: This is an 83-year-old gentleman who is lying in the stretcher in the ER in no distress. VITAL SIGNS: Blood pressure is 129/84, heart rate of 100, respirations are 20, temperature is 98.8 degrees oral with room air saturations 93-95%. HEENT: Pupils equal, round, react to light. EOMs are intact. Sclerae are anicteric. Head is normocephalic, atraumatic. Mucous membranes are moist. NECK: Supple with trachea midline. CARDIOVASCULAR: Regular rate and rhythm. S1 and S2 are appreciated. No appreciable murmur. He has no lower extremity edema with peripheral pulses palpable x4 extremities. PULMONARY: Breath sounds are clear. No increased work of breathing noted. GASTROINTESTINAL: Abdomen is soft, nontender, nondistended. Bowel sounds in all 4 quadrants. NEUROLOGIC: He is alert, oriented x3. SKIN: Warm and dry. LABS: WBC is 9.8 with hemoglobin 13.3, hematocrit 40.1 and platelets of 224, 000. Sodium is 136, potassium 4.8, BUN 16, creatinine 1.2 with a glucose of 184. X-ray of the right knee revealed fractures to the proximal tibia and fibular shaft. CT of the head and cervical spine reveal no acute injury. EKG reveals atrial ventricular pacing at a rate of 95. ASSESSMENT AND PLAN: 1. Tibia-fibula fracture. 2. Frequent falls secondary to Parkinson's, 3. Parkinson disease. 4. Severe ischemic cardiomyopathy with ejection fraction of 25%. 5. Pacemaker defibrillator placement. 6. Diabetes mellitus type 2. 7. Gastroesophageal reflux disease. 8. History of coronary artery disease status post coronary stents with the last being 3 years ago. PLAN: The patient will be admitted to the hospital. We will transfer him to [facility]. We will consult Dr. Castillo, Orthopedics. Will also consult cardiology for cardiac clearance. He will remain NPO after midnight. We placed on pattern blood glucose with sliding scale insulin. We will identify his home medications and continue these as appropriate. We will order neurovascular checks to right lower extremity every 4 hours. Will repeat a CBC, CMP, magnesium and thyroid in the morning. We will give Dilaudid for pain will give 0.5 q.3 hours p.r.n. and Zofran for nausea. For DVT prophylaxis will give 1 dose of Lovenox 30 mg/kg now and this can be reevaluated in the morning by Orthopedics and Cardiology. Further treatments pending hospital course. Dictated by KIMO Sherman for Sher Dueñas MD This chart was documented by, KIMO Sherman and accurately reflects the services performed, treatment plan and medical decisions as attested by the providers signature Sher Dueñas MD. cc: KIMO Sherman MD MTDD
[2018-09-23 06:02] LABS: HEMATOCRIT 38.9 % (42.0-52.0); HEMOGLOBIN 12.6 g/dL (14.0-18.0); MCH 29.2 PG (27-31); MCHC 32.4 g/dL (33-37); MPV 9.6 FL (7.4-10.4); RBC 4.32 XMIL (4.7-6.1); RDW 12.4 % (11.5-14.5); WBC 11.42 X1000 (4.8-10.8)
[2018-09-23 06:44] LABS: ALB/GLOB RATIO 1.6; ALBUMIN 4.1 g/dL (3.5-5.0); CALCIUM 9.3 mg/dL (8.8-10.2); CREATININE 1.2 mg/dL (0.7-1.2); MAGNESIUM 1.8 mg/dL (1.5-2.7); POTASSIUM 4.5 mmol/L (3.5-5.1); TOTAL BILIRUBIN 0.59 mg/dL (0.20-1.00); TOTAL PROTEIN 6.7 g/dL (6.3-8.3)
[2018-09-23] MEDS: HUMALOG SUBQ SCH ×5 (07:00→23:20)
[2018-09-23] MEDS: SYNTHROID PO SCH (08:12)
[2018-09-23] MEDS: LOPRESSOR PO SCH (08:17)
[2018-09-23] MEDS: LASIX PO SCH (09:07)
[2018-09-23] MEDS: ENTRESTO 24 MG-26 MG TABLET PO SCH ×2 (09:07→21:21)
[2018-09-23] MEDS: SINEMET 25/100 PO SCH ×4 (09:07→21:20)
[2018-09-23] MEDS: ATIVAN PO SCH ×2 (09:07→21:21)
[2018-09-23] MEDS: MIRALAX PO SCH (09:07)
[2018-09-23] MEDS: MIRAPEX PO SCH ×2 (09:07→21:20)
--- NOTE | 2018-09-23 09:08 | CONSULTATION ---
DATE OF CONSULTATION: 09/23/2018 REASON FOR CONSULTATION: Right leg pain after a fall. HISTORY OF PRESENT ILLNESS: Mr. Umaña is an 83-year-old male with a past medical history of Parkinson's, congestive heart failure with an EF of 25%, diabetes mellitus type 2, and colon cancer, who presented to the emergency room at [place] after a fall in his home. He denied any loss of consciousness. He denies being dizzy or lightheaded. He states that he has actually had several falls over the last week. He states it is related to his Parkinson's. He notes that it seemed to be getting worse over the last couple of weeks. He complains of right knee, right hand, and pain to the back of his head. He does not recall hitting his head. The [place] emergency room did do a CT scan of the head and C-spine that revealed no acute injury. X-rays of the right knee did show fractures to the proximal tibia and a fibular shaft fracture. Orthopedics has been consulted for management of the tibia fracture. PAST MEDICAL HISTORY: 1. Parkinson's. 2. Coronary artery disease. 3. CHF with EF of 25%. 4. Diabetes mellitus type 2. 5. Peripheral neuropathy. 6. Hypertension. 7. Colon cancer. 8. Gastroesophageal reflux disease. PAST SURGICAL HISTORY: 1. Coronary stents x3. 2. Pacemaker and ICD placement. 3. Colon resection. SOCIAL HISTORY: He lives at home with his family. He denies alcohol, tobacco, or illicit drug use. ALLERGIES: 1. Sulfa. 2. Adhesives. HOME MEDICATIONS: Elavil 50 mg p.o. daily, doxycycline 100 mg p.o. b.i.d., aspirin 81 mg daily, Synthroid 25 mcg p.o. daily, Lopressor 25 mg p.o. daily, insulin sliding scale, morphine ER 50 mg p.o. t.i.d., vitamin E 1 capsule p.o. daily, multivitamin 1 tablet p.o. daily, MiraLAX 17 g p.o. daily, Mirapex 0.25 mg p.o. b.i.d., Ativan 1 mg p.o. daily, Lantus 40 units subcutaneous b.i.d., atorvastatin 20 mg p.o. at bedtime, Effexor 75 mg p.o. at bedtime, Robinul 1 mg p.o. daily, Lasix 40 mg p.o. q.a.m., Sinemet 25/100 mg p.o. 4 times a day, Entresto 24 mg 1 p.o. b.i.d., fish oil 1 every morning. REVIEW OF SYSTEMS: A 10 point review of systems was completed and negative other than what was mentioned above in the HPI. PHYSICAL EXAMINATION: General: This is an elderly appearing, 83-year-old male in no acute distress. Vital Signs: Temperature is 98.7 degrees, pulse 96, respirations 12, blood pressure is 94/73. He is 94% on room air. Neurologic: He is alert and oriented x3 with no focal deficits. CV: Regular rate and rhythm. Pulmonary: Breathing is even and unlabored. Abdomen: Appears nondistended. Extremities: He does have tenderness to palpation over the right proximal tibia. There is a little bit of ecchymosis. He does have a small superficial abrasion. He does have decreased sensation to the toes related to his neuropathy. He is able to dorsi and plantar flex the foot. He does have some tenderness to palpation to the right hand but all his hand intrinsics are intact and he is able to move the hand well. He denies pain to any other extremity. IMAGING: A knee x-ray did show a nondisplaced transverse fracture through the proximal tibia as well as a fibular shaft fracture. CURRENT LABORATORY DATA: White count 11.42, hemoglobin and hematocrit 12.6 and 38.9, platelet count is 214,000. BUN and creatinine 17 and 1.2. ASSESSMENT: Tibia-fibula fracture. PLAN: We are going to plan for an ORIF of his right tibia. Dr. Castillo has discussed this with the patient. Dr. Castillo discussed risks and benefits. Risks include, but are not limited to, damage to nerves, arteries, and veins, malunion, nonunion, hardware related issues, continued pain, DVT, infection, poor wound healing, and risks of general anesthesia. The patient understands and wished to proceed. We are going to get cardiology clearance because of his past medical history, prior to planning on surgery. We are going to keep him NPO for now. If we do obtain cardiac clearance, we will plan to get this on the schedule today. If he needs a tune up, we will work with the medical team and get him ready for surgery later this week. Dictated by KIMO Bhatti for Dax Castillo MD cc: KIMO Bhatti MD
--- NOTE | 2018-09-23 09:59 | HISTORY AND PHYSICAL ---
CHIEF COMPLAINT: Pain, lower extremity. BRIEF HOSPITAL COURSE: The patient is an 83-year-old male who presented to the hospital. 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 He has had 3 surgeries. He has had a defibrillator placed, cardiac stenting x2, a history of Parkinson's disease, recently fell, and had pain in his lower extremity. Came to the ER, was noted to have a tib-fib fracture via x-ray. He will be transferred to [facility] [place] for an orthopedic opinion. cc: Sher Dueñas MD
[2018-09-23] MEDS: DILAUDID IV PRN ×2 (12:13→16:26)
--- NOTE | 2018-09-23 12:47 | PROGRESS NOTE ---
DATE: 09/23/2018 SUBJECTIVE: The patient reports feeling overall fine. Pain is not completely under control. Denies any chest pain, any fever or chills. OBJECTIVE: Vital Signs: Temperature 98.7, heart rate 96, respiratory rate 12, blood pressure 116/60, O2 saturation 94% on room air. General examination: This is a chronically ill-looking, 83-year-old, male lying in bed, in no acute distress. HEENT: Head is normocephalic, atraumatic. Mucous membranes moist. Neck: No JVD noted. No carotid bruits. No lymphadenopathy. No thyromegaly. Cardiovascular: S1 and S2 heard. No murmurs, gallops, or rubs. Regular rate and rhythm. Respiratory: Clear bilaterally to auscultation. No work of breathing or using accessory muscles. Abdomen: Soft. Nontender to palpation. Bowel sounds present. No organomegaly. Extremities: Right knee is covered by a dressing. Neurological: Patient alert and oriented x3. Moves 4 extremities. LABORATORY DATA: White cell count 11.42, hemoglobin 12.6, hematocrit 38.9, platelet count 214,000. BMP: Sodium 133, normal renal function, and glucose 154. ASSESSMENT AND PLAN: 1. Right tibia-fibula fracture. Orthopedics has evaluated this patient and they are ready to take him to the OR, but they are awaiting Cardiology clearance in order to proceed. 2. Severe ischemic cardiomyopathy with ejection fraction of 25%. The patient is on home medication. Will continue with same management. 3. Parkinson disease. The patient will be continued with home medications. 4. Diabetes mellitus type 2. The patient is on sliding scale insulin and Accu-Cheks before meals and also at bedtime. 5. Gastroesophageal reflux disease. Aware. Will continue with intravenous Protonix. 6. History of coronary artery disease with stents placed 3 years ago. Aware. No chest pain noted. Will continue with home medications. DISPOSITION: The patient is ready to go to the OR as soon as he is cleared by Cardiology. cc: Erickson Kwon MD
--- NOTE | 2018-09-23 12:53 | CARDIOLOGY CONSULTATION ---
DATE: 09/23/2018 CHIEF COMPLAINT ON PRESENTATION: Fall and right leg pain. HISTORY OF PRESENT ILLNESS: Mr. Umaña is an 83-year-old gentleman with a history of an ischemic cardiomyopathy, who presented with complaints of a fall and right-sided leg pain. He apparently said his knees buckled. He has a history of Parkinson, and at times that happened this resulted in a fall and subsequent tibial fracture. Otherwise, he has not been having any orthopnea nor chest pain. He exerts himself on a relatively minimal basis secondary to his Parkinson, but has not been having any problems. PAST MEDICAL HISTORY: 1. Significant for ischemic cardiomyopathy. His last ejection fraction was checked by echo and demonstrated an EF of 45 to 50 percent. This was in June of 2018. This was following a biventricular pacemaker implant. His last cardiac catheterization was in December 2016. This demonstrated a heavily calcified proximal 30% LAD, moderate long diagonal with irregularities. Circumflex had diffuse disease of 30%. The first obtuse marginal was moderate size with distal disease of 30%. There was a large posterior marginal that was diffusely diseased by 30%. The right coronary had a mid calcified 90% lesion with distal 30% lesions. The patient had PCI to the right coronary with a 3.0 x 22 mm resolution stent. His last nuclear scan was performed in August of 2017 demonstrating a large-sized fixed defect in the inferior apical wall and inferior septal wall diagnostic of scar. Ejection fraction on that study was 32%. This was following the catheterization in December of 2016. 2. Syncope. 3. Orthostatic hypotension. 4. History of repeated falls with head injury resulting in a subarachnoid hemorrhage in 2016 and a subdural in March of 2017. 5. Hypertension. 6. Hyperlipidemia. 7. Diabetes. 8. Peripheral neuropathy. 9. Colon cancer status post colon surgery. 10. Parkinson disease. SOCIAL HISTORY: The patient is . No alcohol, tobacco or illicit drug use. FAMILY HISTORY: Significant for hypertension. REVIEW OF SYSTEMS: A 10 system review of systems is negative, except for those things mentioned in the HPI. PHYSICAL EXAMINATION: Vital Signs: The patient is afebrile. Heart rate of 96. His most recent blood pressure is 94/73. General: He is in no acute distress. HEENT: Oropharynx is moist. Poor dentition. Eye examination shows pink conjunctivae, white sclerae. Neck: Examination shows no obvious thyromegaly or thyroid tenderness. Cardiovascular: He sounds to be in a regular rate and rhythm. He has no murmurs. He has no S3. He has no lower extremity edema. Chest: Exam sounds clear bilaterally. He has no increased work of breathing. Skin Exam: Warm and dry throughout without any rashes. Abdomen: Soft, nontender, nondistended. He has no obvious organomegaly. Psychiatric: He is alert, oriented and pleasant. He has a normal mood and affect. Neurological: He is moving all extremities well with the exception of the right lower extremity, which is immobilized secondary to the fracture. PERTINENT DATA: His white count is 11.4, hematocrit 38, platelet count is 214. His sodium is 133, potassium is 4.5. BUN is 17, creatinine is 1.2. His TSH is 2.37. He had an electrocardiogram performed yesterday reviewed by me demonstrating a sinus rhythm with ventricular paced complexes. PVC was identified. He has no chest x-ray on file. His knee x-ray shows fractures to the proximal tibia and fibular shafts. ASSESSMENT: Mr. Umaña is an 83-year-old gentleman with a fall and subsequent right tibial fracture. He carries a history of an ischemic cardiomyopathy. PLAN: The patient does carry a high perioperative risk of major adverse cardiac events secondary to his history of myocardial infarction, congestive heart failure and diabetes. He is not having any current symptoms that could be attributed to an uncontrolled/exacerbation of heart failure, nor does he appear to have any ACS type symptoms. Presently I do not see any reason for him to have any further cardiac testing prior to his operative intervention. We will continue to follow him during the initial postoperative period. cc: Jack Lewis MD
[2018-09-23] MEDS ORDERED: FENTANYL ONE (13:16)
[2018-09-23] MEDS ORDERED: AMIDATE ONE (13:17)
[2018-09-23] MEDS ORDERED: ROBINUL ONE (13:17)
[2018-09-23] MEDS ORDERED: SENSORCAINE-MPF 0.5%/EPI 1:200,000 ONE (13:26)
[2018-09-23] MEDS ORDERED: NEOSPORIN G.U. IRRIGANT ONE (13:26)
[2018-09-23] MEDS ORDERED: KEFZOL 1 GM/D5W 1 GM/50 ML IVPB ONE (13:45)
[2018-09-23] MEDS ORDERED: HALDOL IV PRN (15:47)
[2018-09-23] MEDS ORDERED: ZOFRAN IV PRN (15:47)
[2018-09-23] MEDS ORDERED: MILK OF MAGNESIA PO PRN (15:47)
--- NOTE | 2018-09-23 15:47 | OPERATIVE NOTE ---
PROCEDURE DATE: 09/22/2018 PREOPERATIVE DIAGNOSIS: Proximal right tibia-fibula fracture. POSTOPERATIVE DIAGNOSIS: Proximal right tibia-fibula fracture. PROCEDURE: Open reduction/internal fixation of right proximal tibia. SURGEON: Nataliya Arias MD. OPERATIONS REPRESENTATIVE: KIMO Rosas. Mr. Francisco was necessary for manipulation and maintenance of the reduction during the surgery. ANESTHESIA: General. COMPLICATION: None. PROCEDURE IN DETAIL: An 83-year-old male presents for surgical reduction and fixation of proximal tibia fracture. Risks, benefits and no guarantees were discussed, and he is willing to proceed. He was taken to the operating room and satisfactory anesthesia obtained. The right leg was prepped and draped in usual sterile fashion. A time out was seen to ensure proper site, patient and extremity. The leg was wrapped in an Esmarch and tourniquet inflated to 350 mmHg. A midline incision was made starting at the tibial tubercle and carried down towards the lateral side of the midline of the tibia. The lateral cortex of the tibia was subperiosteally dissected and an open reduction of the fracture performed. A Synthes pre-contoured proximal lateral tibial locking plate was secured with 5 bicortical screws proximally, with 1 lag screw and 4 locking screws. An additional 6 locking screws were placed in the proximal part of the fracture with care taken to avoid any joint penetration and allow for maintenance of the fracture and comminution. After fixation, the knee and tibia was taken through range of motion with good stability. The wound was copiously irrigated with irrigant. The fascia was then repaired with an 0 Vicryl, the subcutaneous with 2-0 Vicryl, and the skin with skin john. Sterile dressings completed the closure and the patient was recovered from anesthesia and transferred to the recovery room in stable condition. No intraoperative complications were noted. Instrument count and sponge count was correct at the time of closure. cc: Deangelo Arias MD
[2018-09-23] MEDS: NS 1,000 ML IV SCH (16:16)
[2018-09-23] MEDS: TYLENOL PO SCH (16:16)
[2018-09-23] MEDS: LIPITOR PO SCH (21:20)
[2018-09-23] MEDS: COLACE PO SCH (21:21)
[2018-09-23] MEDS: OXY IR PO PRN (21:21)
[2018-09-23] MEDS: PROTONIX IV SCH (21:22)
[2018-09-23] MEDS: EFFEXOR PO SCH (21:22)
[2018-09-23] MEDS: ROBINUL PO SCH (21:23)
[2018-09-23] MEDS: KEFZOL 1 GM/D5W 1 GM/50 ML IVPB IV SCH (23:22)
[2018-09-24] MEDS: MORPHINE IV PRN ×2 (00:35→03:30)
[2018-09-24] MEDS: TYLENOL PO SCH ×3 (00:35→16:26)
[2018-09-24] MEDS: PERIDEX MT SCH ×3 (01:42→21:22)
[2018-09-24] MEDS ORDERED: ELAVIL PO ONE (03:18)
[2018-09-24] MEDS: KEFZOL 1 GM/D5W 1 GM/50 ML IVPB IV SCH (05:23)
[2018-09-24] MEDS: LOVENOX SUBQ SCH (05:24)
[2018-09-24] MEDS ORDERED: XARELTO PO SCH (06:00)
[2018-09-24 06:44] LABS: HEMATOCRIT 36.1 % (42.0-52.0); HEMOGLOBIN 11.8 g/dL (14.0-18.0); MCH 29.4 PG (27-31); MCHC 32.7 g/dL (33-37); MCV 89.8 FL (81-99); MPV 10.1 FL (7.4-10.4); RBC 4.02 XMIL (4.7-6.1); RDW 12.7 % (11.5-14.5); WBC 12.62 X1000 (4.8-10.8)
[2018-09-24 07:20] LABS: AGAP 20; BUN 18 mg/dL (8-22); CALCIUM 8.9 mg/dL (8.8-10.2); CHLORIDE 95 mmol/L (98-107); COSMO 278; CREATININE 1.1 mg/dL (0.7-1.2); ESTIMATED GFR > 60; GLUCOSE 246 mg/dL (70-104); POTASSIUM 4.1 mmol/L (3.5-5.1); SODIUM 134 mmol/L (136-145); TCO2 19 mmol/L (25-35)
[2018-09-24] MEDS: NS 1,000 ML IV SCH ×2 (07:48→16:25)
[2018-09-24] MEDS: HUMALOG SUBQ SCH ×4 (07:52→20:56)
--- NOTE | 2018-09-24 08:46 | PROGRESS NOTE ---
DATE: 09/24/2018 SUBJECTIVE DATA: Mr. Umaña reports that he is feeling somewhat sleepy today. Family at bedside reports that the patient has not been himself today and he has had more confusion since being put to sleep. He reports his pain is a 3/10 at this time. He reports he can move his limbs without much difficulty at this time. OBJECTIVE DATA: There is good sensation to right lower extremity. There is good capillary refill in the toes. There are good pedal pulses. There is negative Homans sign. The bandage is clean and dry. ASSESSMENT: Right proximal tibia-fibular fracture. PLAN: We will plan on monitoring Mr. Umaña while he is in the hospital. He will need to follow up within 10 to 14 days to have his john removed. We will keep an eye on him while he is in the hospital. Dictated by KIMO Rosas for Deangelo Arias MD cc: KIMO Rosas MD
[2018-09-24] MEDS: MIRALAX PO SCH (09:30)
[2018-09-24] MEDS: ATIVAN PO SCH ×2 (09:31→20:56)
[2018-09-24] MEDS: FERROUS SULFATE PO SCH (09:31)
[2018-09-24] MEDS: LOPRESSOR PO SCH (09:31)
[2018-09-24] MEDS: MIRAPEX PO SCH ×2 (09:31→20:56)
[2018-09-24] MEDS: ENTRESTO 24 MG-26 MG TABLET PO SCH ×2 (09:31→20:55)
[2018-09-24] MEDS: SINEMET 25/100 PO SCH ×4 (09:31→20:55)
[2018-09-24] MEDS: LASIX PO SCH (09:31)
[2018-09-24] MEDS: SYNTHROID PO SCH (09:33)
[2018-09-24] MEDS: OXY IR PO PRN ×2 (09:42→17:29)
[2018-09-24] MEDS ORDERED: STERILE WATER INJ. INJ ONE (10:59)
--- NOTE | 2018-09-24 11:22 | PROGRESS NOTE ---
DATE: 09/24/2018 SUBJECTIVE: The patient is a little bit confused today. According to the who is at bedside, she said that patient is not being himself today. He was not able to sleep last night. OBJECTIVE: Vital signs: Temperature 98.7 degrees, heart rate 105, respiratory rate 14, blood pressure 117/56, O2 saturation 96% 2 L nasal cannula. General: This is a chronically ill- looking, 83-year-old, male, lying in bed, in no acute distress. HEENT: Head is normocephalic, atraumatic. Mucous membranes moist. Neck: Supple. No JVD noted. No carotid bruits. No lymphadenopathy. No thyromegaly. Cardiovascular: S1, S2 heard. No murmurs, gallops, or rubs. Regular rate and rhythm. Respiratory: Clear bilaterally to auscultation. No work of breathing or using accessory muscles. Abdomen: Soft, nontender to palpation. Bowel sounds present. No organomegaly. Extremity: Right knee and right leg covered by splint. Neurological: Patient is a little bit sleepy and confused. Does not coherent speech at times, but no focal symptoms noted. LABORATORY DATA: White cell count 12.62, hemoglobin 11.8, hematocrit 36.1, platelets 203,000 with BMP basically unremarkable except blood sugar 246. ASSESSMENT AND PLAN: 1. Right tibia-fibula fracture status post open reduction and internal fixation. Patient had been cleared by Cardiology yesterday and Orthopedics proceed with surgery. They are following him in the hospital. 2. Severe ischemic cardiomyopathy with ejection fraction of 25%. Clinically, he is stable. Does not look to be in any exacerbation. We will continue with the same management. 3. Parkinson disease. Patient is on home medications. 4. Diabetes mellitus type 2. The patient is getting Accu-Cheks before meals and also at bedtime and sliding scale insulin as well. 5. Gastroesophageal reflux disease. We will continue with intravenous Protonix. 6. History of coronary artery disease with stents, stable. 7. Disposition. At this point, the patient may need to go to rehab considering his recent right tibiofemoral fracture and history of Parkinson disease. Physical therapy working with this patient. dump worker has been consulted. cc: Erickson Kwon MD
--- NOTE | 2018-09-24 19:34 | CARDIOLOGY PROGRESS NOTE ---
DATE: 09/24/2018 SUBJECTIVE: Mr. Umaña seems somewhat delirious today. His is present in the room. He has been quite fidgety. He is talking somewhat nonsensically and has thrown off the covers on multiple occasions. He is not having any acute pain complaints presently and seems relatively calm during my evaluation. PHYSICAL EXAMINATION: VITAL SIGNS: He is afebrile. His heart rates are in the 90s to low 100s. Blood pressure is 117/71. GENERAL: He is in no acute distress. CARDIOVASCULAR: He sounds to be in a regular rate and rhythm. He has no murmurs. He has no S3. He has no lower extremity edema. His right lower extremity is bandaged and in an immobilizer after his operation. CHEST: Clear bilaterally. He has no increased work of breathing. ABDOMEN: Soft and nontender. PERTINENT DATA: His sodium is 134, potassium 4.1, BUN 18, creatinine 1.1. ASSESSMENT: Mr. Umaña is an 83-year-old gentleman who suffered a right lower extremity fracture. PLAN: He seems to be doing well from a cardiovascular standpoint. I do not have any acute recommendations currently. He has had a significant improvement in his ejection fraction since implant of his biventricular device. I would recommend continuing his home regimen of medications. He is on Entresto and metoprolol. Please contact us if we can be of further assistance with the patient. cc: Jack Lewis MD
[2018-09-24] MEDS: ELAVIL PO SCH (20:55)
[2018-09-24] MEDS: LIPITOR PO SCH (20:55)
[2018-09-24] MEDS: EFFEXOR PO SCH (20:55)
[2018-09-24] MEDS: COLACE PO SCH (20:56)
[2018-09-24] MEDS ORDERED: GEODON IM SCH (21:00)
[2018-09-24] MEDS: ROBINUL PO SCH (21:23)
[2018-09-24] MEDS: PROTONIX IV SCH (21:23)
[2018-09-25] MEDS: TYLENOL PO SCH ×4 (00:55→23:39)
[2018-09-25] MEDS: HUMALOG SUBQ SCH ×4 (06:05→23:39)
[2018-09-25] MEDS: LOVENOX SUBQ SCH (06:06)
[2018-09-25] MEDS: SYNTHROID PO SCH (06:06)
[2018-09-25 06:35] LABS: HEMATOCRIT 35.2 % (42.0-52.0); HEMOGLOBIN 11.2 g/dL (14.0-18.0); MCH 28.8 PG (27-31); MCHC 31.8 g/dL (33-37); MCV 90.5 FL (81-99); MPV 10.1 FL (7.4-10.4); RBC 3.89 XMIL (4.7-6.1); RDW 12.6 % (11.5-14.5); WBC 12.69 X1000 (4.8-10.8)
[2018-09-25 06:43] LABS: AGAP 17; BUN 16 mg/dL (8-22); CALCIUM 9.3 mg/dL (8.8-10.2); CHLORIDE 96 mmol/L (98-107); COSMO 280; CREATININE 1.1 mg/dL (0.7-1.2); ESTIMATED GFR > 60; GLUCOSE 230 mg/dL (70-104); POTASSIUM 3.9 mmol/L (3.5-5.1); SODIUM 136 mmol/L (136-145); TCO2 23 mmol/L (25-35)
[2018-09-25] MEDS: ENTRESTO 24 MG-26 MG TABLET PO SCH ×2 (08:40→23:41)
[2018-09-25] MEDS: ATIVAN PO SCH ×2 (08:40→23:41)
[2018-09-25] MEDS: LOPRESSOR PO SCH (08:40)
[2018-09-25] MEDS: FERROUS SULFATE PO SCH (08:40)
[2018-09-25] MEDS: MIRALAX PO SCH (08:41)
[2018-09-25] MEDS: PERIDEX MT SCH ×2 (08:41→23:42)
[2018-09-25] MEDS: SINEMET 25/100 PO SCH ×4 (08:41→23:41)
[2018-09-25] MEDS: LASIX PO SCH (08:41)
[2018-09-25] MEDS: MIRAPEX PO SCH ×2 (08:41→23:40)
[2018-09-25] MEDS ORDERED: MORPHINE IR PO PRN (11:43)
[2018-09-25] MEDS ORDERED: MORPHINE IV PRN (11:43)
--- NOTE | 2018-09-25 12:24 | PROGRESS NOTE ---
DATE: 09/25/2018 OVERNIGHT EVENTS: I was paged by the nursing team that the patient was confused , and patient's , who is a surrogate decision maker, was worried about the patient not receiving MS Contin, which could be contributing to his altered mental status. I looked at the patient's chart and evaluated the patient at bedside. Most of the history was obtained by patient' s at bedside, as the patient had gone to sleep and was not responding appropriately and appeared confused. SUBJECTIVE: The patient does not answer questions meaningfully currently. OBJECTIVE: Vital signs: Temperature 98.6 degrees, pulse 107 per minute, blood pressure 130/80, saturating 98% on room air. General: Does not appear in any acute distress. HEENT: He is breathing through his mouth, which oral cavity appears moist. Lungs: Air entry bilaterally equal. However, it is difficult to appreciate, considering patient is snoring. I on my limited exam could not appreciate any wheezes or crackles. Cardiovascular: S1, S2 normal. No murmur, rub, or gallop. Abdomen: Soft, nontender. Tympanic to percussion. Lower Extremities: He has right lower extremity in a bandage. Just a while ago when I examined him, he was able to stand up at the edge of the bed, though he was shaky. Input and output: Not charted appropriately. DIAGNOSTIC STUDIES: Today suggestive of persistent leukocytosis, normocytic anemia, normal platelet count, normal kidney function, hypochloremia, and low bicarbonate. Microbiology: No data. Reports: No new imaging. ASSESSMENT AND PLAN: 1. Acute encephalopathy, likely related to postoperative delirium. I discussed with about redirection, reassurance, and reorientation to maintain his regular sleep- wake cycle and giving him support. I will continue his home medications of lorazepam, venlafaxine, and amitriptyline. I will also give p.r.n. haloperidol as required to treat his delirium. 2. Fever with leukocytosis. This could be early sepsis. He has been on scheduled Tylenol which may not allow a fever spike. I will get urinalysis and chest x-ray to rule out urine infection or pneumonia. I will hold antibiotics until then. 3. Mechanical fall leading to right tibia-fibula fracture status post open reduction and internal fixation. Orthopedics on board. I will continue pain management with intravenous morphine and p.o. morphine as needed. I will hold off on adding his home MS Paul for now. 4. History of Parkinson's disease. Continue home carbidopa/levodopa and pramipexole. 5. History of heart failure with reduced ejection fraction status post automatic implantable cardioverter device (AICD), and history of coronary artery disease status post stent at least 3 years ago. Continue home medications of atorvastatin, furosemide, metoprolol, and Entresto as per Cardiology recommendation. 6. Gastroesophageal reflux disease (GERD). Continue intravenous Protonix. DISPOSITION: Patient remains inside the hospital while we treat his acute encephalopathy. I discussed plan of care with the patient's at bedside, and all of her questions have been answered. I discussed with her that considering his head CT on arrival was unremarkable and this is likely acute delirium, he may not need head CT for now. cc: Travis Wren MD MTDD
[2018-09-25 12:30] LABS: URINE SOURCE CATH
[2018-09-25 12:35] LABS: BILIRUBIN URINE NEGATIVE (NEGATIVE); BLOOD URINE SMALL (NEGATIVE); COLOR YELLOW; GLUCOSE URINE 1000 mg/dL (NEGATIVE); KETONE URINE 60 mg/dL (NEGATIVE); LEUKOCYTES URINE NEGATIVE (NEGATIVE); NITRITE URINE NEGATIVE (NEGATIVE); PROTEIN URINE 50 mg/dL (NEGATIVE); SP GRAVITY URINE 1.017; TURBIDITY URINE CLEAR (CLEAR); UR EPITHELIAL CELLS <10 /HPF (<10); URINE BACTERIA NEGATIVE /HPF; URINE RBC <10 /HPF (<10); URINE WBC <10 /HPF (<10); UROBILINOGEN URINE NORMAL (NORMAL)
--- NOTE | 2018-09-25 12:38 | PROGRESS NOTE ---
DATE: 09/25/2018 Mr. Umaña is seen status post ORIF of his tibia. At the present time, he is afebrile with stable vital signs, but he does have some dementia and altered mental status. The hospitalist is working on that. The leg is clean and dry. Will make arrangements to change the bandage on the leg. We will be available as needed. He will need to follow up with us in roughly 2 weeks time for x-rays of the knee. cc: Deangelo Arias MD
[2018-09-25] MEDS: PROTONIX IV SCH (23:39)
[2018-09-25] MEDS: EFFEXOR PO SCH (23:40)
[2018-09-25] MEDS: ELAVIL PO SCH (23:40)
[2018-09-25] MEDS: COLACE PO SCH (23:40)
[2018-09-25] MEDS: LIPITOR PO SCH (23:41)
[2018-09-25] MEDS: ROBINUL PO SCH (23:42)
[2018-09-26 05:35] LABS: URINE SOURCE CATH
[2018-09-26 05:46] LABS: BILIRUBIN URINE NEGATIVE (NEGATIVE); BLOOD URINE NEGATIVE (NEGATIVE); COLOR YELLOW; GLUCOSE URINE 200 mg/dL (NEGATIVE); KETONE URINE TRACE mg/dL (NEGATIVE); LEUKOCYTES URINE NEGATIVE (NEGATIVE); NITRITE URINE NEGATIVE (NEGATIVE); PROTEIN URINE TRACE mg/dL (NEGATIVE); SP GRAVITY URINE 1.017; TURBIDITY URINE CLEAR (CLEAR); UROBILINOGEN URINE NORMAL (NORMAL)
[2018-09-26 05:47] LABS: UR EPITHELIAL CELLS <10 /HPF (<10); URINE BACTERIA NEGATIVE /HPF; URINE RBC <10 /HPF (<10); URINE WBC <10 /HPF (<10)
[2018-09-26 05:58] LABS: HEMATOCRIT 32.9 % (42.0-52.0); HEMOGLOBIN 10.8 g/dL (14.0-18.0); MCH 29.5 PG (27-31); MCHC 32.8 g/dL (33-37); MCV 89.9 FL (81-99); MPV 9.7 FL (7.4-10.4); RBC 3.66 XMIL (4.7-6.1); RDW 12.7 % (11.5-14.5); WBC 10.6 X1000 (4.8-10.8)
[2018-09-26 06:21] LABS: AGAP 15; BUN 21 mg/dL (8-22); CALCIUM 8.7 mg/dL (8.8-10.2); CHLORIDE 99 mmol/L (98-107); COSMO 283; ESTIMATED GFR > 60; GLUCOSE 208 mg/dL (70-104); POTASSIUM 3.4 mmol/L (3.5-5.1); SODIUM 137 mmol/L (136-145); TCO2 23 mmol/L (25-35)
[2018-09-26] MEDS: LOVENOX SUBQ SCH (06:54)
[2018-09-26] MEDS: HUMALOG SUBQ SCH ×5 (06:54→21:36)
[2018-09-26] MEDS: SYNTHROID PO SCH (06:54)
--- NOTE | 2018-09-26 07:13 | Diag Imaging Result Doc PS360 ---
EXAM: CHEST-PORTABLE 09/26/2018 HISTORY: Fever post operative TECHNIQUE: AP portable at 0548 COMMENT: Considering differences in technique there has been no significant change since 07/08/2018. IMPRESSION: Stable chest. Electronically signed by Arnaldo Isaacs 09/26/2018 7:11 AM
[2018-09-26] MEDS: PERIDEX MT SCH ×2 (08:55→21:33)
[2018-09-26] MEDS: ENTRESTO 24 MG-26 MG TABLET PO SCH ×2 (08:55→21:34)
[2018-09-26] MEDS: ATIVAN PO SCH (08:56)
[2018-09-26] MEDS: LOPRESSOR PO SCH (08:56)
[2018-09-26] MEDS: MIRALAX PO SCH (08:56)
[2018-09-26] MEDS: TYLENOL PO SCH ×3 (08:56→23:29)
[2018-09-26] MEDS: LASIX PO SCH (08:56)
[2018-09-26] MEDS: FERROUS SULFATE PO SCH (08:56)
[2018-09-26] MEDS: SINEMET 25/100 PO SCH ×4 (08:56→21:34)
[2018-09-26] MEDS: MIRAPEX PO SCH ×2 (08:58→21:34)
--- NOTE | 2018-09-26 09:03 | Diag Imaging Result Doc PS360 ---
EXAM: CHEST-1 VIEW 09/26/2018 HISTORY: REHAB TECHNIQUE: AP upright portable at 0839 COMMENT: The appearance of the chest has not changed significantly since 09/26/2018. IMPRESSION: Stable chest. Electronically signed by Arnaldo Isaacs 09/26/2018 9:01 AM
[2018-09-26] MEDS ORDERED: BASAGLAR SUBQ SCH (12:00)
[2018-09-26] MEDS ORDERED: MORPHINE IR PO PRN (12:01)
--- NOTE | 2018-09-26 14:14 | PROGRESS NOTE ---
DATE: 09/26/2018 INTERVAL HISTORY: Overnight, the patient had urine retention for which a Villarreal catheter was placed. However, the patient pulled out Villarreal catheter and had some bleeding in the urinary meatus. I have ordered another bladder scan to help him urinate. I discussed the plan of care with the patient's at bedside who is a surrogate decision maker. SUBJECTIVE: The patient was sleepy, but arousable. He answered some simple questions and followed simple commands and left back to sleep again. He denies any chest pain or shortness of breath. He ate a little bit of breakfast in the morning. PHYSICAL EXAMINATION: General: He does not appear in any acute distress. Oral cavity is dry. Vital signs: Temperature 97.7 degrees, pulse 98, respiratory 20, blood pressure 129/68, saturating 100% on room air. Lungs: Air entry bilaterally equal. No wheeze, rhonchi or crackles. S1, S2 normal. No murmur, rub, or gallop. Abdomen: Soft, nontender. He is sitting in the chair, so I could not perform abdominal examination completely, but there was no dullness in suprapubic region when I palpated and percussed. Lower extremity: He has right lower extremity in a soft bandage. The wound does not appear to be soaked at the site of leg. No lower extremity edema on the left. Neurologic: He is drowsy, but arousable, and answers simple questions. He is oriented to person. LABORATORIES: Suggestive of no leukocytosis. Acceptable range of hemoglobin, hematocrit, and platelet. Hypokalemia. Normal kidney function. Hyperglycemia. Urinalysis was unremarkable without any leukocytes. Chest x-ray was negative for any acute process. ASSESSMENT AND PLAN: 1. Acute encephalopathy likely related to postoperative delirium. We will continue to redirect and reassure. Continue to help him have regular sleep-wake cycle. Stop lorazepam as he was not taking that at home. Continue home venlafaxine, amitriptyline, and p.r.n. haloperidol. 2. Fever with leukocytosis, now resolved. No signs of infection. Continue to monitor. No need of antibiotics. 3. Acute urinary retention, likely in the setting of postoperative delirium and postsurgical state. My plan is to continue to do straight catheterization every 6 hours until tomorrow morning. At that point, I anticipate better mental status. At that point, I will consider inserting a Villarreal catheter if he still has urine retention. If he has hematuria, than I will consult Urology tomorrow. 3. Mechanical fall leading to right tibia-fibula fracture status post open reduction-internal fixation. Continue pain management with p.o. morphine as needed. Hold home MS Contin for now. 4. Histor of IDDM: Start on Lantus and continue sliding scale insulin. 4. History of Parkinson's disease. Continue home carbidopa, levodopa and pramipexole. 5. History of heart failure with reduced ejection fraction, status post AICD, history of coronary artery disease status post stent 3 years ago. Continue home atorvastatin, furosemide, metoprolol and Crestor. Continue enoxaparin for DVT prophylaxis. I will also resume his aspirin. 6. GERD. Continue intravenous Protonix. 7. Disposition. Patient remains inside the hospital as we treat acute delirium. If continues to do better, I am anticipating discharge to rehab early next week. I will also get EKG for his tachycardia. cc: Travis Wren MD MTDD
--- NOTE | 2018-09-26 14:28 | EKG Report ---
Test Performed on : 09/26/2018 12:57:57 PM Test Reason : Tachycardia. Blood Pressure : / mmHG Vent. Rate : 081 BPM Atrial Rate : 081 BPM P-R Int : 160 ms QRS Dur : 156 ms QT Int : 476 ms P-R-T Axes : 042 131 094 degrees QTc Int : 552 ms Atrial-sensed ventricular-paced rhythm with frequent premature ventricular complexes. Abnormal ECG When compared with ECG of 22-SEP-2018 15:06, (Unconfirmed) Vent. rate has decreased BY 14 BPM Confirmed by Darya HENSON, Mau Barone ([id number]) on 09/27/2018 8:30:48 AM
[2018-09-26] MEDS ORDERED: BASAGLAR SUBQ ONE (18:52)
[2018-09-26] MEDS: COLACE PO SCH (21:33)
[2018-09-26] MEDS: PROTONIX IV SCH ×2 (21:33→21:41)
[2018-09-26] MEDS: LIPITOR PO SCH (21:33)
[2018-09-26] MEDS: EFFEXOR PO SCH (21:34)
[2018-09-26] MEDS: ELAVIL PO SCH (21:34)
[2018-09-26] MEDS: ROBINUL PO SCH (21:36)
[2018-09-27 06:32] LABS: HEMATOCRIT 38.9 % (42.0-52.0); HEMOGLOBIN 12.3 g/dL (14.0-18.0); MCH 29.5 PG (27-31); MCHC 31.6 g/dL (33-37); MCV 93.3 FL (81-99); MPV 9.9 FL (7.4-10.4); RBC 4.17 XMIL (4.7-6.1); RDW 12.9 % (11.5-14.5); WBC 13.12 X1000 (4.8-10.8)
[2018-09-27] MEDS: HUMALOG SUBQ SCH ×4 (06:42→21:34)
[2018-09-27] MEDS: SYNTHROID PO SCH (06:43)
[2018-09-27] MEDS: LOVENOX SUBQ SCH (06:43)
[2018-09-27 06:50] LABS: AGAP 21; BUN 22 mg/dL (8-22); CALCIUM 9.4 mg/dL (8.8-10.2); CHLORIDE 96 mmol/L (98-107); COSMO 284; CREATININE 1.1 mg/dL (0.7-1.2); ESTIMATED GFR > 60; GLUCOSE 283 mg/dL (70-104); POTASSIUM 3.7 mmol/L (3.5-5.1); SODIUM 135 mmol/L (136-145); TCO2 18 mmol/L (25-35)
--- NOTE | 2018-09-27 07:38 | Diag Imaging Result Doc PS360 ---
CT HEAD/C-SPINE W/O CONTRAST - 09/27/2018 INDICATION: Fall,Hematoma Left Forhead,on lovenox,neck pain COMPARISON: 09/22/2018 FINDINGS: Head CT: There is a small left forehead soft tissue contusion. No skull fracture. No intracranial mass or hemorrhage. Cervical spine: Alignment is anatomic. No fracture or subluxation. IMPRESSION: Small forehead contusion. No intracranial injury. No acute injury to the cervical spine. This exam was performed using automated exposure control, adjustment of mA or kV according to patient size, and/or use of iterative reconstruction technique Electronically signed by Octavio Muro 09/27/2018 7:35 AM
--- NOTE | 2018-09-27 07:57 | Diag Imaging Result Doc PS360 ---
KNEE 1-2 VIEWS-RIGHT - 09/27/2018 INDICATION: Fall,R Knee Pain, Post-Op Surg for R Tib/fib Fx TECHNIQUE: Two views COMPARISON: 09/22/2018 FINDINGS: There has been placement of a lateral tibial plateau sideplate in good position. There is no change in the minimally displaced transverse fractures through the proximal tibia and fibula. No hardware fracture or loosening. IMPRESSION: No complication. Electronically signed by Octavio Muro 09/27/2018 7:55 AM
--- NOTE | 2018-09-27 07:58 | Diag Imaging Result Doc PS360 ---
ANKLE 2 VIEWS RIGHT - 09/27/2018 INDICATION: Fall,R Ankle Pain, Post-Op Surg for R Tib/fib Fx TECHNIQUE: COMPARISON: None FINDINGS: There is no distal fracture or complication. IMPRESSION: No acute disease. Electronically signed by Octavio Muro 09/27/2018 7:55 AM
[2018-09-27] MEDS: MIRALAX PO SCH (08:49)
[2018-09-27] MEDS: ENTRESTO 24 MG-26 MG TABLET PO SCH ×2 (08:49→21:35)
[2018-09-27] MEDS: BASAGLAR SUBQ SCH (08:50)
[2018-09-27] MEDS: TYLENOL PO SCH ×2 (08:50→18:27)
[2018-09-27] MEDS: PERIDEX MT SCH ×2 (08:50→21:37)
[2018-09-27] MEDS: MIRAPEX PO SCH ×2 (08:51→21:36)
[2018-09-27] MEDS: MS CONTIN PO SCH ×2 (08:51→21:36)
[2018-09-27] MEDS: LOPRESSOR PO SCH (08:51)
[2018-09-27] MEDS: ASPIRIN EC PO SCH (08:51)
[2018-09-27] MEDS: SINEMET 25/100 PO SCH ×4 (08:51→21:37)
[2018-09-27] MEDS: LASIX PO SCH (08:52)
[2018-09-27] MEDS: FERROUS SULFATE PO SCH (08:52)
[2018-09-27] MEDS ORDERED: BASAGLAR SUBQ SCH (09:00)
--- NOTE | 2018-09-27 12:19 | PROGRESS NOTE ---
DATE: 09/27/2018 OVERNIGHT INTERVAL HISTORY: The patient had a bout of confusion at nighttime and he was trying to come out of bed, probably he had urge to defecate and he was trying to come out of bed. He sustained a fall episode where he hit his head and his knee, after which he was complaining of some headache and knee pain. This happened at around 2 a.m. at nighttime. The patient's was informed about this episode. He underwent CT scan of his head, x-ray of his knees, and ankles. The CT scan of head and cervical neck did not detect any acute fracture, dislocation, intracranial hemorrhage except scalp hematoma on forehead. According to Radiology read, x- ray of ankle and knees were also unremarkable except postsurgical changes. However, orthopedic review is pending. SUBJECTIVE: Today, morning when I saw the patient he is sleepy, however, arousable. He answers most questions appropriately. The patient is is at bedside. I discussed with her about his clinical course. The patient's is concerned of him not taking MS Contin is contributing to his confusion and withdrawal. However, I explained to her that he does not have features of typical opioid withdrawal which would include profuse sweating, usual tachycardia and diarrhea, etc. However, considering that he is currently not able to communicate pain very well and may not ask for p.r.n. medications, I decided to start him on MS Contin 15 mg b.i.d. while his home dose was 15 mg t.i.d. I explained to her that we will have to closely monitor his confusion. We will have to redirect, reorient and reassure him. We will have to regularize his sleep-wake cycle and take it from there. PHYSICAL EXAMINATION: Vitals: Currently, vitals suggest temperature of 98.4, pulse 84, blood pressure 130/49, saturating 98% on room air. General: He does not appear in any acute distress. He is sleepy. Oral cavity is moist. Lungs: Air entry bilaterally equal. No wheeze, rhonchi, crackles. Heart: S1, S2 normal. No murmur or gallop. Abdomen: Soft, nontender. Lower Extremities: He has right lower extremity in soft bandage. Neurologic: He is following commands, raising both arms and legs to command. He is not able to lift right lower extremity above ground level because of pain. He is able to wiggle his ankle and toes. DIAGNOSTICS: Lab evaluation today suggests WBC of 13,000, hemoglobin of 12.3 and platelet of 238. He does have hyponatremia, hypochloremia, normal kidney function, hyperglycemia. His vitals had revealed temperature of 98.4 degrees, pulse 88, blood pressure 130/70, saturating 96% on room air. Microbiology no data. Imaging: Had cervical CT head. Detected small forehead contusion without intracranial injury to cervical spine. Knee x-ray had detected no complication of prosthesis. ASSESSMENT AND PLAN: 1. Mechanical fall at nighttime without any intracranial hemorrhage or fracture. I am awaiting orthopedic review of knee x-ray to make sure there is no displacement of previously collected fracture or processes damage. 2. Acute encephalopathy and confusion related to hospital acquired and postoperative delirium. We will continue to redirect, reorient and reassure. I will start him on MS Contin which was his home medication b.i.d. to address his pain, which might be contributing to his delirium. I will adjust dosing based on his mental status during day. Nursing team has been informed about the plan. 3. Acute urinary retention in the setting of postoperative delirium, postsurgical state and probably prostatic hypertrophy. He required multiple straight catheterization yesterday. He previously had pulled out his Villarreal catheter and had hematuria yesterday. The straight catheterization was difficult to achieve so I had decided to keep the catheter in and I have consulted Urology today to help with the management of urine retention. 4. Mechanical fall at home, status post right tibia-fibula fracture, status post open reduction internal fixation. Continue MS Contin for pain management. We will give him p.r.n. medication if he asks. 5. History of insulin-dependent diabetes mellitus. Increase Lantus dose today. Continue sliding scale insulin. 6. History of Parkinson disease continue home carbidopa/levodopa and pramipexole. 7. History of heart failure with reduced ejection fraction, status post AICD and history of coronary artery disease status post stent 3 years ago. Continue home atorvastatin, furosemide, metoprolol, Crestor and aspirin. 8. Continue Protonix for gastroesophageal reflux disease. 9. Deep venous thrombosis prophylaxis. I am holding enoxaparin dose today until orthopedic reviews images and I will restart it tomorrow. 10. Disposition: Patient remains inside the hospital as we address his delirium. Once his delirium is addressed, my plan is to discharge him to rehab I hope early next week. All of 's questions have been answered. cc: Travis Wren MD MTDD
--- NOTE | 2018-09-27 14:23 | PROGRESS NOTE ---
DATE: 09/27/2018 SUBJECTIVE: Mr. Umaña unfortunately took a tumble this morning and injured this right leg which he had surgery on just the other day by Dr. Arias. They did some x-rays. OBJECTIVE: Right lower extremity exam, his dressing is clean, dry, and intact. A little bit of swelling to the leg overall but not bad. He is able to dorsiflex and plantar flex the ankle very well. Not a lot of swelling at the ankle. RADIOGRAPHS: X-ray of the knee shows you can see the fracture line that is there in the proximal tibia and fibula. Hardware all looked to be in good position. Overall alignment still looks good. Two-view of the right ankle not a great AP view but I do not see any definite fractures present. ASSESSMENT: Status post right proximal tibia open reduction, internal fixation. PLAN: I do not think Mr. Umaña fractured anything further, I think he just probably manuel everything and is having some pain from that standpoint. He is still nonweightbearing right lower extremity. Will continue to follow. cc: Dax Castillo MD
[2018-09-27] MEDS ORDERED: MS CONTIN PO SCH (20:00)
[2018-09-27] MEDS: LIPITOR PO SCH (21:35)
[2018-09-27] MEDS: COLACE PO SCH (21:35)
[2018-09-27] MEDS: ELAVIL PO SCH (21:35)
[2018-09-27] MEDS: EFFEXOR PO SCH (21:36)
[2018-09-27] MEDS: ROBINUL PO SCH (21:37)
[2018-09-27] MEDS: PROTONIX IV SCH (21:38)
[2018-09-28] MEDS: TYLENOL PO SCH ×3 (05:36→16:59)
[2018-09-28] MEDS: HUMALOG SUBQ SCH ×5 (06:54→22:00)
[2018-09-28] MEDS: SYNTHROID PO SCH (06:54)
[2018-09-28] MEDS: BASAGLAR SUBQ SCH ×2 (09:48→21:59)
[2018-09-28] MEDS: MIRALAX PO SCH (09:48)
[2018-09-28] MEDS: MIRAPEX PO SCH ×2 (09:49→21:58)
[2018-09-28] MEDS: FERROUS SULFATE PO SCH (09:49)
[2018-09-28] MEDS: MS CONTIN PO SCH ×2 (09:49→21:57)
[2018-09-28] MEDS: ASPIRIN EC PO SCH (09:49)
[2018-09-28] MEDS: ENTRESTO 24 MG-26 MG TABLET PO SCH ×2 (09:50→21:58)
[2018-09-28] MEDS: SINEMET 25/100 PO SCH ×4 (09:50→21:58)
[2018-09-28] MEDS: PERIDEX MT SCH ×2 (09:50→21:57)
[2018-09-28] MEDS: LOPRESSOR PO SCH (09:50)
[2018-09-28] MEDS: LASIX PO SCH (09:50)
[2018-09-28] MEDS ORDERED: INSULIN PEN NEEDLES ONE (13:47)
--- NOTE | 2018-09-28 14:28 | PROGRESS NOTE ---
DATE: 09/28/2018 INTERVAL HISTORY: No acute events overnight. Orthopedic had evaluated the patient yesterday and suggested that his fracture surgical union was intact. His EKG had atrially sensed, ventricularly paced rhythm. Urology has not seen the patient yet. He continues to have a Villarreal catheter currently. OBJECTIVE: Vital Signs: Temperature 98.5 degrees, pulse 81, respiratory rate 16, blood pressure 150/60, saturating 100% on room air. General: Does not appear in any acute distress. HEENT: Oral cavity is moist. Lungs: Air entry bilaterally equal. No wheeze, rhonchi, crackles. Cardiovascular: S1, S2 normal. No murmur or gallop. Abdomen: Soft, nontender. Lower Extremities: He has the right lower extremity in a brace. Neurologic: Following commands. Alert and oriented x3. He is raising both arms and legs to command. He is not able to lift the right lower extremity above ground level because of recent surgery. However, able to wiggle his ankles and toes. LABS: No CBC or BMP today. Continues to have hyperglycemia. MICROBIOLOGY: No data. IMAGING: No new data. ASSESSMENT AND PLAN: 1. Mechanical fall on September 27, 2018. Head CT and x-ray of ankle and knee without any acute abnormalities. The fall was likely because of the patient's delirium. 2. Acute encephalopathy and confusion during hospitalization related to hospital-acquired and postoperative delirium. We will continue to redirect, reorient, and reassure. He appears much more alert, interactive today. I discussed with him and his that he should not go to sleep today, that he can go to sleep at nighttime. 3. Acute urinary retention in the setting of postoperative delirium, postsurgical state, and probably prostatic hypertrophy. Continue Villarreal catheter. Urology has been consulted. I will appreciate their recommendation about giving him a voiding trial tomorrow. 4. Mechanical fall at home, status post right tibia-fibula fracture, status post open reduction and internal fixation. Continue MS Contin which is his home medication for pain at b.i.d. dosing. 5. History of insulin-dependent diabetes mellitus. I increased his Lantus dose to 40 units b.i.d. which is his home dose. Continue sliding scale insulin. 6. History of Parkinson disease. Continue carbidopa levodopa and pramipexole. 7. History of heart failure with reduced ejection fraction, status post AICD, and history of coronary artery disease, status post stent 3 years ago. Continue home aspirin, metoprolol, furosemide, atorvastatin. 8. Continue Protonix for gastroesophageal reflux disease and enoxaparin for deep vein thrombosis prophylaxis. 9. Disposition. The patient remains inside the hospital. If he continues to feel better, my plan is to transfer him to rehab Saturday. Plan of care was discussed with the patient and his at bedside. All of their questions have been answered. cc: Travis Wren MD
[2018-09-28] MEDS: LOVENOX SUBQ SCH (15:00)
[2018-09-28] MEDS ORDERED: FLOMAX PO ONE (15:04)
[2018-09-28] MEDS: EFFEXOR PO SCH (21:58)
[2018-09-28] MEDS: COLACE PO SCH (21:58)
[2018-09-28] MEDS: ROBINUL PO SCH (21:58)
[2018-09-28] MEDS: FLOMAX PO SCH (21:58)
[2018-09-28] MEDS: ELAVIL PO SCH (21:58)
[2018-09-28] MEDS: LIPITOR PO SCH (21:59)
[2018-09-28] MEDS: PROTONIX IV SCH (22:01)
[2018-09-29] MEDS: TYLENOL PO SCH ×2 (00:55→08:47)
[2018-09-29 05:51] LABS: BASO# 0.03 X1000 (0.0-0.2); BASO% 0.3 % (0.0-0.8); EOS# 0.49 X1000 (0.0-0.7); EOS% 4.5 % (0.0-10.0); HEMATOCRIT 33.4 % (42.0-52.0); HEMOGLOBIN 10.8 g/dL (14.0-18.0); IMM GRAN# 0.02 X1000 (0.0-0.04); IMM GRAN% 0.2 % (0.0-0.5); LYMPH# 2.42 X1000 (1.2-3.4); MCH 28.6 PG (27-31); MCHC 32.3 g/dL (33-37); MCV 88.6 FL (81-99); MONO# 0.78 X1000 (0.11-0.59); MONO% 7.1 % (1.7-9.3); MPV 9.2 FL (7.4-10.4); NEUT# 7.27 X1000 (1.4-6.5); NEUT% 65.9 % (42.2-75.2); PLT 245 X1000 (130-400); RBC 3.77 XMIL (4.7-6.1); RDW 12.5 % (11.5-14.5); WBC 11.01 X1000 (4.8-10.8)
[2018-09-29] MEDS: HUMALOG SUBQ SCH ×2 (06:22→13:50)
[2018-09-29 06:30] LABS: AGAP 14; BUN 20 mg/dL (8-22); CALCIUM 9.1 mg/dL (8.8-10.2); CHLORIDE 100 mmol/L (98-107); COSMO 281; CREATININE 1.1 mg/dL (0.7-1.2); ESTIMATED GFR > 60; GLUCOSE 142 mg/dL (70-104); POTASSIUM 3.2 mmol/L (3.5-5.1); SODIUM 138 mmol/L (136-145); TCO2 24 mmol/L (25-35)
[2018-09-29] MEDS: SYNTHROID PO SCH (06:42)
--- NOTE | 2018-09-29 08:12 | CONSULTATION ---
DATE OF CONSULTATION: 09/28/2018 REFERRING PHYSICIAN: Dr. Wren with hospitalist service. REASON FOR CONSULTATION: Urinary retention. HISTORY OF PRESENT ILLNESS: 83-year-old male who is known to me secondary to history of BPH as well as benign bladder tumor. He has undergone transurethral resection of prostate in 2014. He was last seen in clinic in April 2018 at which point he was doing fairly well. Of note, he has baseline elevated postvoid residuals with the last residual in April 2019 record 222 mL. Please note that prior to surgery, his postvoid residuals were in the 600+ range. The patient was admitted with fracture of tibia and fibula. He reports voiding after surgery, but with some straining. He reports he was told he had approximately 300 mL in his bladder. Villarreal catheter was placed. Urology was consulted. PAST MEDICAL HISTORY: Parkinson's disease, coronary artery disease, CHF, cardiomyopathy, diabetes mellitus, hypertension, colon cancer, GERD. PAST SURGICAL HISTORY: Colectomy. Defibrillator placement. Percutaneous coronary intervention. 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 TURBT. TURP. ALLERGIES: Sulfa medications. HOME MEDICATIONS: Fish oil. Entresto. Sinemet. Lasix. Robinul. Effexor. Lipitor. Lantus. Mirapex. Protonix. Multivitamin. Morphine. Humalog. Lopressor. Synthroid. Aspirin. Elavil. Doxycycline. SOCIAL HISTORY: Denies tobacco, alcohol or illicit drug use. FAMILY HISTORY: Diabetes mellitus, hypertension, stroke. REVIEW OF SYSTEMS: Reviewed and 12 systems negative with exception to the history of present illness as well as right lower extremity pain. PHYSICAL EXAMINATION: Vital signs: Temperature 98.6 degrees, pulse 105, blood pressure 131/91. General: Pleasant male in no apparent distress. HEENT: Normocephalic, atraumatic. Cardiovascular: Regular rhythm. Pulmonary: Bilateral breath sounds. Abdomen: Nontender, nondistended. : Bladder is nontender palpation, normal shaft. Meatus is wide open, Villarreal catheter in place draining straw-colored urine. Perineal with structural integrity intact. Digital rectal examination deferred at this visit secondary to patient having difficulty moving. Lymphatic: No groin lymphadenopathy. Dermatologic: No obvious skin rashes. Neurologic: Alert and oriented x3. Psychiatric: Appropriate mood and affect. PERTINENT LABORATORY DATA: White cell count of 13,000, hematocrit is 39. Creatinine is 1.1. Urinalysis on 09/26/2017 was negative for infection. PERTINENT IMAGES: None of this hospitalization. ASSESSMENT/PLAN: An 83-year-old male with long-standing history of benign prostatic hypertrophy who has undergone transurethral resection of the prostate in the past. At baseline his postvoid residuals are in the 200 range. I have discussed with the patient that he has had worsening of his residual secondary to surgery, stress of his lower extremity fracture and pain medications. He has used Flomax in the past intermittently. We discussed restarting Flomax at b.i.d. formulation. He is planning to go to rehab and I have discussed with the patient that we can remove his Villarreal catheter and as long as his residuals are in 200-300 range for him, that would be acceptable. He is in agreement as is his family who is present at bedside. PLAN: 1. Remove Villarreal catheter. 2. We will check postvoid residual. The following morning. 3. Flomax 0.4 mg now and subsequently b.i.d. Thank you for consultation. cc: Trent Ulrich MD
[2018-09-29] MEDS: SINEMET 25/100 PO SCH ×2 (08:47→13:49)
[2018-09-29] MEDS: ENTRESTO 24 MG-26 MG TABLET PO SCH (08:47)
[2018-09-29] MEDS: ASPIRIN EC PO SCH (08:48)
[2018-09-29] MEDS: FERROUS SULFATE PO SCH (08:48)
[2018-09-29] MEDS: LOPRESSOR PO SCH (08:48)
[2018-09-29] MEDS: MIRAPEX PO SCH (08:48)
[2018-09-29] MEDS: PERIDEX MT SCH (08:48)
[2018-09-29] MEDS: LASIX PO SCH (08:49)
[2018-09-29] MEDS: FLOMAX PO SCH (08:49)
[2018-09-29] MEDS: MIRALAX PO SCH (08:49)
[2018-09-29] MEDS: KLOR-CON PO SCH ×2 (08:50→13:49)
[2018-09-29] MEDS: MS CONTIN PO SCH (08:50)
[2018-09-29] MEDS: BASAGLAR SUBQ SCH (09:08)
[2018-09-29 11:44] VITALS: BP 118/79
--- NOTE | 2018-09-29 12:05 | DISCHARGE SUMMARY ---
ADMISSION DATE: 09/22/2018 DISCHARGE DATE: 09/29/2018 CONSULTATIONS: 1. Dr. Castillo with Orthopedics. 2. Dr. aJck Lewis with Cardiology. 3. Dr. Ulrich with Urology. PERTINENT PROCEDURES: 1. Head and cervical spine showed no acute injury. 2. Right knee x-ray showed a fracture through the proximal tibia and fibular shaft. 3. Open reduction and internal fixation of the right proximal tibia, performed by Dr. Arias. 4. Head and cervical spine CT showed small forehead contusion. No intracranial injury. No acute injury to the cervical spine. 5. Follow-up right knee x-ray showed no complications. DISCHARGE DIAGNOSES: 1. Status post fall at home. The patient suffered a tibia-fibula fracture and he underwent an ORIF of his right tibia with Dr. Arias. He has been working with physical therapy and will be discharged to [facility]. 2. Status post mechanical fall on 09/27/2018 secondary to patient's hospital acquired and postoperative delirium. He had a head CT and a repeat knee x-ray, both did not show any acute abnormalities. 3. Acute encephalopathy and confusion during hospitalization related to hospital acquired and postoperative delirium. The patient was continued to be redirected, reoriented, and reassured. He is now stable, back to his normal mentation. 4. Acute urinary retention in the setting of postoperative delirium, postsurgical state, and probable prostatic hypertrophy. The patient did have a Villarreal catheter. He has been evaluated by Urology, Dr. Ulrich, who has written orders to remove his Villarreal catheter and continue with postvoid residuals. His normal postvoid residuals are in the 200s. He is okay with him in the 200 to 300 range. Will continue on Flomax b.i.d. and follow up with him on an outpatient basis. 5. History of insulin-dependent diabetes mellitus. Continue with home regimen. 6. History of Parkinson disease. Continue home medications. 7. History of heart failure with reduced ejection fraction, status post AICD. 8. History of coronary artery disease status post stenting 3 years ago. He will continue his home aspirin, metoprolol, Lasix, and atorvastatin. HOSPITAL COURSE: Briefly, Mr. Umaña is an 83-year-old gentleman with a past medical history of Parkinson's, congestive heart failure with an EF of 25%, type 2 diabetes, colon cancer, who presented to [place] ED after a fall at home. There was no loss of consciousness. No dizziness. No lightheadedness. He reported falling several times at home over the last week secondary to his Parkinson disease. He complained of right knee pain as well as right hand pain and pain to the back of the head. In the ED at [place] a CT scan of the head and C-spine revealed no acute injury. X-ray to the right knee showed fracture to the proximal tibia and fibular shaft. He was placed for transfer to [facility] for orthopedic consultation. He underwent a open reduction and internal fixation of the right proximal tibia with Dr. Arias after clearance from Cardiology. He had been progressing along, continuing with physical therapy. However, on he had some acute delirium. He suffered another mechanical fall. Ankle, knee, head and cervical spine CT were all performed. They were negative for any acute injuries. Mr. Umaña continued to be reoriented, reassessed, and redirected throughout his hospital visit. He is now back to his normal mentation. He did suffer from some acute urinary retention and remained with his Villarreal catheter in place. That has been removed today by Dr. Ulrich. We will continue with postvoid residual. He is okay with residuals that are in the 200 to 300 range for him, that would be acceptable, and to continue with Flomax b.i.d. He is acceptable for discharge to rehab at [facility]. VITAL SIGNS: Temperature is 97.9 degrees, heart rate 98, respirations 18, blood pressure 113/89, O2 is 95% on room air. DISCHARGE DIET: Mechanical soft. DISCHARGE MEDICATIONS: 1. Elavil 100 mg p.o. at bedtime. 2. Aspirin 81 mg p.o. daily. 3. Lipitor 20 mg p.o. q.p.m. 4. Sinemet 25/100 one each p.o. 4 times a day. 5. Fish oil 1200 mg p.o. q.a.m. 6. Lasix 40 mg p.o. q.a.m. 7. Robinul 1 mg p.o. q.p.m. 8. Lantus 40 units subcutaneously b.i.d. 9. Humalog 30 units subcutaneously t.i.d. 10. Synthroid 25 mcg p.o. daily. 11. Centrum Silver 1 tablet p.o. daily. 12. Protonix 40 mg p.o. daily. 13. Mirapex 0.25 mg p.o. b.i.d. 14. Entresto 24 mg/26 mg 1 each p.o. b.i.d. 15. Effexor 75 mg p.o. q.p.m. 16. Vitamin E 1000 unit capsule 1 capsule p.o. daily. 17. Colace 200 mg p.o. at bedtime. 18. Lovenox 40 mg subcutaneously q.24 hours. 19. Ferrous sulfate 325 mg p.o. with breakfast. 20. Lopressor 25 mg p.o. daily. 21. MS Contin 15 mg p.o. b.i.d. 22. MiraLAX 17 g p.o. daily. 23. Flomax 0.4 mg p.o. b.i.d. FOLLOW UP: Mr. Umaña is being discharged to [facility] where he will continue with his physical therapy for his fracture to his right tibia and fibula. He is ambulating under supervision secondary to his Parkinson disease. He will follow up with his Orthopedist in 10 days after discharge for repeat x-rays to his right leg. Continue to follow up with his PCP within 10 days, as well as Urologist in 10 days from the day of discharge. He can return to the ED or call 911 for any worsening of symptoms. Dictated by KIMO Schofield for Travis Wren MD cc: MD Deangelo Bonds MD Sergey S. Ananyev, MD David Francis, MD MTDD
[2018-09-29] MEDS ORDERED: XYLOCAINE 2% JELLY UROJECT TOP ONE (12:15)
[2018-09-29] MEDS: LOVENOX SUBQ SCH (13:49)
== END 2018-09-29 15:41 | DRG 493 ==
LOC: P.ED 14:51 → SUATTDRO 18:48 → 4N 18:48
PROVIDERS: ATTEND Internal Medicine
CPT/HCPCS: 70450; 71010; 71045; 72125; 73560; 73562; 73600; 76000; 80048; 80053; 81001; 82550; 82948; 83735; 84443; 84484; 85014; 85018; 85025; 85027; 93005; 93010; 94761; 94799; 96372; 96374; 97110; 97162; 97530; 99285; A9270; C9113; J0690; J1170; J1630; J1650; J1815; J2270; J3010; J3486; J7030; S0164; XXXXX

== ENCOUNTER 2018-10-01 17:41 | Inpatient (IN) ==
--- NOTE | 2018-10-01 17:56 | PROVIDER DOCUMENTATION ---
HPI-Neurological Disorder - General Chief Complaint: Altered Mental Status Stated Complaint: AMS Time Seen by Provider: 10/01/18 17:51 Allergies/Adverse Reactions: Patient Allergies Allergy/AdvReac Type Severity Reaction Status Date / Time Sulfa (Sulfonamide Allergy RASH Verified 10/01/18 18:26 Antibiotics) adhesive AdvReac ITCHING Verified 10/01/18 18:26 Home Medications: Home Medication List Medication Instructions Recorded Confirmed Last Taken Type Atorvastatin Calcium [Lipitor] 20 mg PO QPM 01/29/17 10/01/18 09/21/18 21:00 History Carbidopa/Levodopa [Sinemet 25/100] 1 each PO 4XDAY 01/29/17 10/01/18 09/22/18 11:00 History Fish Oil/Dha/Epa [Fish Oil 1,200 1 each PO QAM 01/29/17 10/01/18 09/22/18 11:00 History mg Fish Oil] Furosemide [Lasix] 40 mg PO QAM 01/29/17 10/01/18 09/22/18 11:00 History Glycopyrrolate [Robinul] 1 mg PO QPM 01/29/17 10/01/18 09/21/18 21:00 History Sacubitril/Valsartan [Entresto 24 1 each PO BID 01/29/17 10/01/18 09/22/18 09: 00 History mg-26 mg Tablet] Venlafaxine [Effexor] 75 mg PO QPM 01/29/17 10/01/18 09/21/18 21:00 History Pantoprazole [Protonix] 40 mg PO DAILY 10/06/17 10/01/18 09/22/18 09:00 History Pramipexole [Mirapex] 0.25 mg PO BID 10/06/17 10/01/18 09/22/18 11:00 History Polyethylene Glycol 3350 [Miralax] 17 gm PO DAILY #1 misc 10/08/17 10/01/1812/05 09:00 Rx Multivit-Min/FA/Lycopen/Lutein 1 tab PO DAILY 12/30/17 10/01/18 09/22/18 11:00 History [Centrum Silver Tablet] Vitamin E Mixed [Vitamin E] 1 cap PO DAILY 12/30/17 10/01/18 09/22/18 09:00 History Aspirin [Adult Low Dose Aspirin EC] 81 mg PO DAILY 07/09/18 10/01/18 09/22/18 11 :00 History Insulin Lispro [Humalog] 30 unit SQ TID 07/09/18 10/01/18 09/22/18 09:00 History Levothyroxine Sodium [Synthroid] 25 mcg PO DAILY 07/09/18 10/01/18 09/21/18 09: 00 History Metoprolol [Lopressor] 25 mg PO DAILY #30 tab 07/09/18 10/01/18 09/22/18 09:00 Rx Amitriptyline [Elavil] 100 mg PO HS 09/23/18 10/01/18 Unknown History Docusate Sodium [Colace] 200 mg PO QHS capsule 09/29/18 10/01/18 Unknown Rx Enoxaparin [Lovenox] 40 mg SUBQ Q24H syringe 09/29/18 10/01/18 Unknown Rx Ferrous Sulfate 325 mg PO WBREAKFAST tablet 09/29/18 10/01/18 Unknown Rx Morphine E.r. [Ms Contin] 15 mg PO TID #30 tab 09/29/18 10/01/18 Unknown Rx Tamsulosin [Flomax] 0.4 mg PO BID capsule 09/29/18 10/01/18 Unknown Rx Insulin Glargine,Hum.rec.anlog 40 units SQ BID 10/01/18 10/01/18 Unknown History [Crystal Estelagladys U-100] - History of Present Illness-Neuro Nature of Presenting Problem: PATIENT IS 83 FROM REHAB FACILITY PRESENTED WITH UNCONTROLLED TREMORS, ALTERED MENTAL STATUS WITH HISTORY OF CHRONIC UTI AND GRAYSON INDWELLING, PATIENT SEEMED ALERT, PATIENT HAD HISTORY OF DYSPHAGIA, NO CHANGE, PATIENT WAS SHAKING, BUT NO DIAPHORESIS. Severity: reports: moderate Onset/Duration: reports: gradual, this afternoon Timing: reports: still present Context: reports: other (PATIENT HAD HISTORY OF PARKINSON) Character of Altered Mental Status: reports: other (UNCONTROLLED TREMORS) Any recent trauma/injury?: reports: none Gait Baseline: uses a walker Associated Symptoms: reports: insomnia. denies: headache, dizziness, fever/ chills Similar Symptoms Previously?: No Recently seen or treated by another doctor?: No Review of Systems - Adult - REVIEW OF SYSTEMS - ADULT Constitutional: reports: chills Eyes: reports: no symptoms reported Ears, Nose, Mouth & Throat: reports: no symptoms reported Cardiovascular: reports: no symptoms reported Respiratory: reports: no symptoms reported Gastrointestinal: reports: no symptoms reported Genitourinary: reports: no symptoms reported Neurological: reports: see HPI Psychiatric: reports: see HPI, anxiety Endocrine: reports: no symptoms reported Hematologic/Lymphatic: reports: no symptoms reported Allergic/Immunologic: reports: no symptoms reported Past History - Adult - PAST MEDICAL HISTORY-ADULT Review of Records: reports: Nursing Assessment Review Major Childhood Illnesses: reports: denies history Cardiovascular: reports: CAD, CHF, HTN, hyperlipidemia, [place] Respiratory: reports: denies history Gastrointestinal: reports: cancer (colon) Obstetrical/Gynecological: reports: denies history Genitourinary: reports: denies history Musculoskeletal: reports: denies history Neurological: reports: Parkinson's Endocrine/Immune: reports: Diabetes Other Conditions: reports: other (neuropathy, decrease of feeling in his jayna LE from the knees down) - PRIOR SURGERIES/PROCEDURES Surgical/Procedure History: reports: cholecystectomy, cardiac stent (3), other ( colon surgery, head) - IMMUNIZATION STATUS Childhood Immunizations: See Nurse Assessment Flu Vaccine: See Nurse Assessment - FAMILY HISTORY Family History: reviewed, not pertinent Physical Exam- Neurological - Physical Exam-Neuro Initial Vital Signs Reviewed: Yes General Appearance: alert, mild distress Eye Exam: bilateral eye: PERRL, EOMI HENMT: normocephalic/atraumatic Head Injury: no evidence of injury. negative: Pugh's Sign, ecchymosis Neck: negative: lymphadenopathy, meningismus Respiratory: normal breath sounds Cardiovascular: no edema, no gallop, no JVD Abdominal Exam: distended (TAMPANY ON PERCUSSION) Lymphatic: no adenopathy Extremity: no pedal edema, no calf tenderness filter press tender Exam: negative: facial droop Coordination/Gait: negative: normal finger to nose, normal gait Motor/Sensory: other (SHAKING ALL OVER, MOVING ALL EXTREMITIES, NO DRIPS OR DROOPING) Integumentary: warm/dry Psych/Mental Status: anxious. negative: normal mood/affect, normal thought content, normal thought process - Glascow Coma Scale Best Eye Response: (4) open spontaneously Best Verbal Response: (5) oriented Best Motor Response: (6) obeys commands Progress - PLAN OF CARE/RESULTS Progress/Plan/Lab Results: Vital Signs - 8 hr 10/01/18 17:47 10/01/18 18:02 10/01/18 18:33 Temperature 99.7 F H Pulse Rate 98 H 128 H 131 H Respiratory Rate 18 27 H 28 H Blood Pressure 122/73 148/88 O2 Sat by Pulse Oximetry 98 97 10/01/18 18:37 10/01/18 18:40 10/01/18 18:50 Temperature Pulse Rate 132 H 128 H 130 H Respiratory Rate 28 H 30 H 30 H Blood Pressure 112/66 O2 Sat by Pulse Oximetry 94 L 96 95 10/01/18 19:00 10/01/18 19:05 10/01/18 19:10 Temperature Pulse Rate 128 H 132 H 130 H Respiratory Rate 28 H 29 H 27 H Blood Pressure 119/77 O2 Sat by Pulse Oximetry 94 L 94 L 94 L 10/01/18 19:20 10/01/18 19:30 10/01/18 19:32 Temperature Pulse Rate 124 H 126 H 125 H Respiratory Rate 23 28 H 26 H Blood Pressure 110/61 O2 Sat by Pulse Oximetry 96 95 95 10/01/18 19:40 10/01/18 19:50 10/01/18 20:00 Temperature Pulse Rate 127 H 126 H 125 H Respiratory Rate 26 H 29 H 31 H Blood Pressure O2 Sat by Pulse Oximetry 95 94 L 93 L 10/01/18 20:01 10/01/18 20:09 10/01/18 20:10 Temperature Pulse Rate 126 H 130 H Respiratory Rate 25 H 31 H Blood Pressure 109/67 O2 Sat by Pulse Oximetry 92 L 97 92 L 10/01/18 20:20 10/01/18 20:30 10/01/18 20:31 Temperature Pulse Rate 128 H 138 H 131 H Respiratory Rate 31 H 28 H 27 H Blood Pressure 113/74 O2 Sat by Pulse Oximetry 92 L 91 L 91 L 10/01/18 20:40 10/01/18 20:50 10/01/18 21:00 Temperature Pulse Rate 121 H 128 H 126 H Respiratory Rate 26 H 23 26 H Blood Pressure O2 Sat by Pulse Oximetry 89 L 90 L 90 L 10/01/18 21:01 10/01/18 21:10 Temperature Pulse Rate 137 H 131 H Respiratory Rate 27 H 29 H Blood Pressure 107/80 O2 Sat by Pulse Oximetry 91 L 89 L 02/13/19 18:00 Influenza Screen - Final Nasopharyngeal Laboratory Results - last 24 hr 10/01/18 10/01/18 10/01/18 18:12 18:30 18:55 WBC 14.08 H RBC 4.23 L Hgb 12.1 L Hct 38.1 L MCV 90.1 MCH 28.6 MCHC 31.8 L RDW Std Deviation 12.8 Plt Count 361 MPV 9.7 Immature Gran % (Auto) 0.2 Neut % (Auto) 90.4 H Lymph % (Auto) 4.3 L Gila % (Auto) 5.0 Eos % (Auto) 0.0 Baso % (Auto) 0.1 Immature Gran # (Auto) 0.03 Neut # (Auto) 12.73 H Lymph # (Auto) 0.61 L Gila # (Auto) 0.70 H Eos # (Auto) 0.00 Baso # (Auto) 0.01 PT INR PTT (Actin FS) Sodium Potassium Chloride Carbon Dioxide Anion Gap BUN Creatinine Estimated GFR/1.73 m2 BUN/Creatinine Ratio Glucose POC Glucose 116 H D Calculated Osmolality Calcium Phosphorus Magnesium Total Bilirubin AST ALT Alkaline Phosphatase Creatine Kinase Creatine Kinase Index CK-MB (CK-2) Troponin T Total Protein Albumin Globulin Albumin/Globulin Ratio Plasma Lactate TSH Urine Source CATH Urine Color YELLOW Urine Turbidity HAZY Urine pH 5.5 Ur Specific [place] 1.018 Urine Protein 50 A Ur Glucose (Stick) NEGATIVE Ur Ketones (Stick) TRACE A Urine Blood MODERATE A Urine Nitrite NEGATIVE Urine Bilirubin NEGATIVE Urobilinogen Dipstick NORMAL Urine Leukocytes LARGE A Urine WBC (Auto) TNTC A Urine RBC (Auto) 10-20 A U Epithel Cells (Auto) <10 Urine Bacteria (Auto) 4+ 10/01/18 10/01/18 10/01/18 18:55 18:55 18:55 WBC RBC Hgb Hct MCV MCH MCHC RDW Std Deviation Plt Count MPV Immature Gran % (Auto) Neut % (Auto) Lymph % (Auto) Gila % (Auto) Eos % (Auto) Baso % (Auto) Immature Gran # (Auto) Neut # (Auto) Lymph # (Auto) Gila # (Auto) Eos # (Auto) Baso # (Auto) PT 13.8 INR 0.98 PTT (Actin FS) 29.9 Sodium 138 Potassium 4.6 Chloride 98 Carbon Dioxide 22 L Anion Gap 18 BUN 34 H Creatinine 1.3 H Estimated GFR/1.73 m2 53 BUN/Creatinine Ratio 26 Glucose 91 POC Glucose Calculated Osmolality 283 Calcium 10.2 Phosphorus 2.2 L Magnesium 2.0 Total Bilirubin 0.49 AST 55 H ALT 13 Alkaline Phosphatase 84 Creatine Kinase Creatine Kinase Index CK-MB (CK-2) Troponin T < 0.010 Total Protein 8.5 H Albumin 3.4 L Globulin 5.1 Albumin/Globulin Ratio 0.7 Plasma Lactate TSH Urine Source Urine Color Urine Turbidity Urine pH Ur Specific [place] Urine Protein Ur Glucose (Stick) Ur Ketones (Stick) Urine Blood Urine Nitrite Urine Bilirubin Urobilinogen Dipstick Urine Leukocytes Urine WBC (Auto) Urine RBC (Auto) U Epithel Cells (Auto) Urine Bacteria (Auto) 10/01/18 10/01/18 10/01/18 18:55 20:30 20:30 WBC RBC Hgb Hct MCV MCH MCHC RDW Std Deviation Plt Count MPV Immature Gran % (Auto) Neut % (Auto) Lymph % (Auto) Gila % (Auto) Eos % (Auto) Baso % (Auto) Immature Gran # (Auto) Neut # (Auto) Lymph # (Auto) Gila # (Auto) Eos # (Auto) Baso # (Auto) PT INR PTT (Actin FS) Sodium 137 Potassium 3.7 D Chloride 101 Carbon Dioxide 22 L Anion Gap 14 BUN 35 H Creatinine 1.3 H Estimated GFR/1.73 m2 53 BUN/Creatinine Ratio 27 Glucose 69 L POC Glucose Calculated Osmolality 280 Calcium 9.4 Phosphorus Magnesium Total Bilirubin 0.41 AST 42 H ALT 12 Alkaline Phosphatase 72 Creatine Kinase 822 H Creatine Kinase Index 0.2 CK-MB (CK-2) 1.61 Troponin T Total Protein 7.4 Albumin 3.0 L Globulin 4.4 Albumin/Globulin Ratio 0.7 Plasma Lactate 1.7 TSH 0.70 Urine Source Urine Color Urine Turbidity Urine pH Ur Specific [place] Urine Protein Ur Glucose (Stick) Ur Ketones (Stick) Urine Blood Urine Nitrite Urine Bilirubin Urobilinogen Dipstick Urine Leukocytes Urine WBC (Auto) Urine RBC (Auto) U Epithel Cells (Auto) Urine Bacteria (Auto) 10/01/18 21:51 WBC RBC Hgb Hct MCV MCH MCHC RDW Std Deviation Plt Count MPV Immature Gran % (Auto) Neut % (Auto) Lymph % (Auto) Gila % (Auto) Eos % (Auto) Baso % (Auto) Immature Gran # (Auto) Neut # (Auto) Lymph # (Auto) Gila # (Auto) Eos # (Auto) Baso # (Auto) PT INR PTT (Actin FS) Sodium Potassium Chloride Carbon Dioxide Anion Gap BUN Creatinine Estimated GFR/1.73 m2 BUN/Creatinine Ratio Glucose POC Glucose 80 Calculated Osmolality Calcium Phosphorus Magnesium Total Bilirubin AST ALT Alkaline Phosphatase Creatine Kinase Creatine Kinase Index CK-MB (CK-2) Troponin T Total Protein Albumin Globulin Albumin/Globulin Ratio Plasma Lactate TSH Urine Source Urine Color Urine Turbidity Urine pH Ur Specific [place] Urine Protein Ur Glucose (Stick) Ur Ketones (Stick) Urine Blood Urine Nitrite Urine Bilirubin Urobilinogen Dipstick Urine Leukocytes Urine WBC (Auto) Urine RBC (Auto) U Epithel Cells (Auto) Urine Bacteria (Auto) Orders Category Date Time Status Cardiac Monitoring DIRECTED Care 10/01/18 17:52 Active Cardiac Monitoring DIRECTED Care 10/01/18 19:58 Active Finger Stick Blood Sugar (ED) DIRECTED Care 10/01/18 17:52 Active IV Insertion ORDERED Care 10/01/18 19:58 Completed Misc. NRSG Communication Order DIRECTED Care 10/01/18 17:52 Active Notify MD of + Sepsis Screen NOW Care 10/01/18 19:58 Active Notify Physician As Ordered Care 10/01/18 19:58 Active Saline Loc NOW Care 10/01/18 17:52 Active CHEST-PORTABLE [RAD] Stat Exams 10/01/18 17:[address] HEAD W/O CONTRAST [CT] Stat Exams 10/01/18 17:52 Completed BLOOD CULTURE [BLDCUL] Stat Lab 10/01/18 20:30 Received CBC WITH ELECTRONIC DIFF [HEME] Stat Lab 10/01/18 18:55 Completed CK PROFILE [SP CHEM] Stat Lab 10/01/18 20:30 Completed COMPREHENSIVE METABOLIC PANEL [CHEM] Stat Lab 10/01/18 18:55 Completed COMPREHENSIVE METABOLIC PANEL [CHEM] Stat Lab 10/01/18 20:30 Completed Flu Swab [INFLUENZA SCREEN A/B] Stat Lab 10/01/18 18:00 Completed LACTATE, PLASMA [CHEM] Lab 10/01/18 20:30 Completed LACTATE, PLASMA [CHEM] Lab 10/01/18 23:00 Uncollected LACTATE, PLASMA [CHEM] Lab 10/02/18 02:00 Uncollected MAGNESIUM [CHEM] Stat Lab 10/01/18 18:55 Completed PHOSPHORUS [CHEM] Stat Lab 10/01/18 18:55 Completed PROTIME WITH INR [COAG] Stat Lab 10/01/18 18:55 Completed PTT [COAG] Stat Lab 10/01/18 18:55 Completed TROPONIN T Stat Lab 10/01/18 18:55 Completed TSH Stat Lab 10/01/18 18:55 Completed URINALYSIS W/POSS RFLX CULT [URINALYSIS] Stat Lab 10/01/18 18:30 Completed URINE CULTURE [RM] Routine Lab 10/01/18 19:26 Received CefTRIAXONE [Rocephin] 1 gm Med 10/01/18 20:37 Discontinued 0.9% Sodium Chloride Inj [Ns] 50 ml IV NOW Oxygen Device Stat Oth 10/01/18 19:58 Completed EKG [EKG] Stat Ther 10/01/18 17:52 Ordered Result Diagrams: 10/01/18 18:55 10/01/18 20:30 - REASSESSMENT Reassessment #1 Time Reassessed: 20:41 Status: unchanged (Reviewed history with including 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 He has a Foly catheter and obvious UTI, fever and markedly AMS. He also has an ICD and will need IV abx I think.) - XRAY 1 XRAY: Bilateral XRAY Study: Chest ( COMPARISON: 09/26/2018 FINDINGS: Stable biventricular pacemaker. The lungs are clear. Heart size is normal. No pneumothorax or pleural effusion. IMPRESSION: Negative exam.) - CT/MRI 1 CT Study: Head ( COMPARISON: 09/27/2018 FINDINGS: Stable diffuse cerebral atrophy. No intracranial mass or hemorrhage. The skull is intact. The sinuses are clear. IMPRESSION: No acute disease. This exam was performed using automated exposure control, adjustment of mA or kV according to patient size, and/or use of iterative reconstruction technique) - CONSULTS/PCP/HOSPITALIST Notification #1 *Consult/PCP/Hospitalist*: Dr Villalobos Time Discussed: 21:13 Consult Disposition: Admit Departure - Departure Date of Disposition Decision: 10/01/18 Time of Disposition Decision: 21:13 DIAGNOSIS: Septicemia Disposition: ADMITTED INPATIENT 09 Certified Medical Emergency: Emergent Condition: Stable Referrals and Follow-Ups: Dez Galicia MD [Primary Care Provider] - - Critical Care Note This patient required my direct & personal management of CC.: No Attestation - Physician/ LANDON Attestation The physician spent face to face time with patient:: Yes Advanced Practice Provider documentation review:: Supervising physician onsite and consulted in the evaluation and care of this patient. The physician did have a face to face encounter with the patient.
--- NOTE | 2018-10-01 19:14 | Diag Imaging Result Doc PS360 ---
CT HEAD W/O CONTRAST - 10/01/2018 INDICATION: stroke like symptoms COMPARISON: 09/27/2018 FINDINGS: Stable diffuse cerebral atrophy. No intracranial mass or hemorrhage. The skull is intact. The sinuses are clear. IMPRESSION: No acute disease. This exam was performed using automated exposure control, adjustment of mA or kV according to patient size, and/or use of iterative reconstruction technique Electronically signed by Octavio Muro 10/01/2018 7:12 PM
[2018-10-01 19:19] LABS: URINE SOURCE CATH
[2018-10-01 19:22] LABS: BILIRUBIN URINE NEGATIVE (NEGATIVE); BLOOD URINE MODERATE (NEGATIVE); COLOR YELLOW; GLUCOSE URINE NEGATIVE (NEGATIVE); KETONE URINE TRACE mg/dL (NEGATIVE); LEUKOCYTES URINE LARGE (NEGATIVE); NITRITE URINE NEGATIVE (NEGATIVE); PH URINE 5.5; PROTEIN URINE 50 mg/dL (NEGATIVE); SP GRAVITY URINE 1.018; TURBIDITY URINE HAZY (CLEAR); UROBILINOGEN URINE NORMAL (NORMAL)
[2018-10-01 19:23] LABS: RBC 4.23 XMIL (4.7-6.1); WBC 14.08 X1000 (4.8-10.8)
[2018-10-01 19:23] LABS: UR EPITHELIAL CELLS <10 /HPF (<10); URINE BACTERIA 4+ /HPF; URINE WBC TNTC /HPF (<10)
[2018-10-01 19:24] LABS: BASO# 0.01 X1000 (0.0-0.2); BASO% 0.1 % (0.0-0.8); HEMATOCRIT 38.1 % (42.0-52.0); HEMOGLOBIN 12.1 g/dL (14.0-18.0); IMM GRAN# 0.03 X1000 (0.0-0.04); IMM GRAN% 0.2 % (0.0-0.5); LYMPH# 0.61 X1000 (1.2-3.4); LYMPH% 4.3 % (20.5-51.1); MCH 28.6 PG (27-31); MCHC 31.8 g/dL (33-37); MCV 90.1 FL (81-99); MPV 9.7 FL (7.4-10.4); NEUT# 12.73 X1000 (1.4-6.5); NEUT% 90.4 % (42.2-75.2); PLT 361 X1000 (130-400); RDW 12.8 % (11.5-14.5)
--- NOTE | 2018-10-01 19:25 | Diag Imaging Result Doc PS360 ---
CHEST-PORTABLE - 10/01/2018 INDICATION: stroke like symptoms COMPARISON: 09/26/2018 FINDINGS: Stable biventricular pacemaker. The lungs are clear. Heart size is normal. No pneumothorax or pleural effusion. IMPRESSION: Negative exam. Electronically signed by Octavio Muro 10/01/2018 7:23 PM
[2018-10-01 19:28] LABS: INR 0.98; PROTIME 13.8 Seconds (11.0-16.0)
[2018-10-01 19:29] LABS: PTT 29.9 Seconds (22.3-41.8)
[2018-10-01 19:54] LABS: ALB/GLOB RATIO 0.7; ALBUMIN 3.4 g/dL (3.5-5.0); CALCIUM 10.2 mg/dL (8.8-10.2); CREATININE 1.3 mg/dL (0.7-1.2); PHOSPHORUS 2.2 mg/dL (2.7-4.5); POTASSIUM 4.6 mmol/L (3.5-5.1); TOTAL BILIRUBIN 0.49 mg/dL (0.20-1.00); TOTAL PROTEIN 8.5 g/dL (6.3-8.3)
[2018-10-01] MEDS ORDERED: ROCEPHIN 1 GM in NS 50 ML IV ONE (20:37)
[2018-10-01 21:27] LABS: ALB/GLOB RATIO 0.7; CALCIUM 9.4 mg/dL (8.8-10.2); CREATININE 1.3 mg/dL (0.7-1.2); POTASSIUM 3.7 mmol/L (3.5-5.1); TOTAL BILIRUBIN 0.41 mg/dL (0.20-1.00); TOTAL PROTEIN 7.4 g/dL (6.3-8.3)
[2018-10-01 21:42] LABS: CK INDEX 0.2 (0.0-2.5); CK-MB 1.61 ng/mL (0.0-5.0)
[2018-10-01] MEDS ORDERED: D50W SYRINGE IV ONE (22:02)
[2018-10-01] MEDS ORDERED: NS 250 ML IV ONE (22:06)
[2018-10-01] MEDS ORDERED: MAXIPIME 1 GM in NS 50 ML IV SCH (23:55)
[2018-10-02] MEDS: NS 1,000 ML IV SCH ×2 (00:24→13:54)
[2018-10-02] MEDS: LOVENOX SUBQ SCH (00:24)
--- NOTE | 2018-10-02 00:56 | HISTORY AND PHYSICAL ---
PRIMARY CARE PHYSICIAN: Dr. Dez Galicia. CHIEF COMPLAINT: Altered mental status, fever, chills. HISTORY OF PRESENTING ILLNESS: An 83-year-old elderly male with a history of multiple medical problems, including Parkinson's, skin cancer of the skull, colon cancer, diabetes mellitus type 2, hypertension, CHF, who recently had an ORIF of the tibia and was sent to [facility]. During stay there, he was improving, however, over the past several days he was having fevers and was getting more sluggish and altered. The patient was brought to the emergency department. He was found to be tachycardic and his laboratories confirmed possible UTI. Subsequently, he will need admission for further management. As per his , the patient is a DO NOT RESUSCITATE level 1. At the time of my examination, patient was moderately sluggish but was able to deny having any chest pain or shortness of breath, and most of the other history is obtained from his and previous records. 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 PAST SURGICAL HISTORY: Skin surgery of this skull, colon surgery, AICD, cholecystectomy, right ORIF of the tibia, cataract surgery, coronary stent. ALLERGIES: Sulfa and adhesive tape. CURRENT MEDICATIONS: Include amitriptyline 100 mg p.o. at bedtime, aspirin 81 mg p.o. daily, atorvastatin 20 mg p.o. at bedtime, insulin glargine 40 units subcu b.i.d. carbidopa-levodopa 25- 100 one q.i.d., Lovenox 40 mg subcu daily, Flomax 0.4 mg p.o. b.i.d., Lasix 40 mg p.o. b.i.d., metoprolol 25 mg p.o. daily, Mirapex 0.25 mg 1 p.o. b.i.d., morphine extended release 15 mg p.o. t.i.d., Protonix 40 mg p.o. daily, valsartan dosage not known, Synthroid 25 mcg p.o. daily, Effexor 75 mg p.o. daily. SOCIAL HISTORY: No history of smoking, alcohol, or illicit drug use. FAMILY HISTORY: No history of coronary artery disease. REVIEW OF SYSTEMS: Limited due to patient being sluggish and altered. PHYSICAL EXAMINATION: GENERAL: The patient is resting comfortably. However, he is mildly confused and responds very slowly. VITAL SIGNS: Temperature 99.7 degrees, pulse 128, respirations 27, blood pressure 148/88. HEENT: Atraumatic, normocephalic. PERRLA. NECK: No masses. CHEST: Rhonchi. CARDIOVASCULAR: Tachycardic. ABDOMEN: Soft. Positive bowel sounds. EXTREMITIES: Trace edema. NEUROLOGIC: He is awake and arousable. GENITOURINARY: No bladder distention. SKIN: Warm. LABORATORIES AND STUDIES: WBCs 14.08, hemoglobin 12.1, hematocrit 38.1, platelets 361,000. Sodium 137, potassium 3.7, chloride 101, CO2 is 22, BUN is 35, creatinine is 1.3. Glucose is 69. UA shows large leukocytes, +[address] of the head, no acute disease. Chest x-ray is negative. ASSESSMENT: An 83-year-old elderly male with a history of multiple medical problems, including falls, Parkinson's, skin cancer of the skull, colon cancer, diabetes mellitus type 2, and hypertension, who had presented to emergency department from rehab due to patient being sluggish and altered. Apparently, was having fevers and chills while he was there. He was evaluated in the emergency department, it was suspected possibly had a urinary tract infection and possible early sepsis. Subsequently, he will need admission for further management. 1. Altered mental status. 2. Suspect a urinary tract infection. 3. Early sepsis. 4. Diabetes mellitus type 2. 5. Hypertension. 6. Parkinson disease. 7. Congestive heart failure. PLAN: 1. We will admit patient to [facility]. 2. Continue with neuro checks closely. 3. We will check blood cultures, urine culture. Start patient on IV antibiotics. 4. We will monitor blood glucose and put patient on glycemic protocol. 5. We will restart other home medications. 6. The patient's condition is guarded. 7. Patient is a DO NOT RESUSCITATE level 1. 8. We will put patient on DVT prophylaxis with Lovenox. 9. We will continue to follow and reassess. Make further recommendation based on patient's clinical course. cc: MD Dez Carranza MD
[2018-10-02 03:06] LABS: BASO# 0.02 X1000 (0.0-0.2); BASO% 0.1 % (0.0-0.8); HEMATOCRIT 33.8 % (42.0-52.0); HEMOGLOBIN 10.6 g/dL (14.0-18.0); IMM GRAN# 0.06 X1000 (0.0-0.04); IMM GRAN% 0.4 % (0.0-0.5); LYMPH# 0.72 X1000 (1.2-3.4); LYMPH% 4.3 % (20.5-51.1); MCH 28.8 PG (27-31); MCHC 31.4 g/dL (33-37); MCV 91.8 FL (81-99); MONO# 0.88 X1000 (0.11-0.59); MONO% 5.2 % (1.7-9.3); MPV 9.6 FL (7.4-10.4); NEUT# 15.18 X1000 (1.4-6.5); PLT 326 X1000 (130-400); RBC 3.68 XMIL (4.7-6.1); WBC 16.86 X1000 (4.8-10.8)
[2018-10-02 03:31] LABS: CREATININE 1.3 mg/dL (0.7-1.2); POTASSIUM 4.3 mmol/L (3.5-5.1)
[2018-10-02] MEDS: SYNTHROID PO SCH ×2 (05:41→06:14)
[2018-10-02 07:43] LABS: HEMOGLOBIN A1C 6.8 % (4.8-6.0)
[2018-10-02] MEDS ORDERED: HUMALOG SUBQ SCH (08:00)
[2018-10-02] MEDS ORDERED: MS CONTIN PO SCH (08:00)
[2018-10-02] MEDS: ENTRESTO 24 MG-26 MG TABLET PO SCH (08:59)
[2018-10-02] MEDS: TEFLARO 600 MG in NS 250 ML IV SCH ×2 (08:59→21:49)
[2018-10-02] MEDS: FISH OIL CONCENTRATE PO SCH (08:59)
[2018-10-02] MEDS: MS CONTIN PO SCH ×2 (08:59→14:21)
[2018-10-02] MEDS: FLOMAX PO SCH ×2 (08:59→22:05)
[2018-10-02] MEDS: LASIX PO SCH (09:00)
[2018-10-02] MEDS: SINEMET 25/100 PO SCH ×4 (09:00→22:05)
[2018-10-02] MEDS: VITAMIN E PO SCH (09:00)
[2018-10-02] MEDS: MIRAPEX PO SCH ×2 (09:00→22:04)
[2018-10-02] MEDS: LOPRESSOR PO SCH (09:00)
[2018-10-02] MEDS: FERROUS SULFATE PO SCH (09:00)
[2018-10-02] MEDS: CENTRUM SILVER PO SCH (09:00)
[2018-10-02] MEDS: ASPIRIN EC PO SCH (09:00)
[2018-10-02] MEDS: MIRALAX PO SCH (09:00)
[2018-10-02] MEDS: PROTONIX PO SCH (09:00)
[2018-10-02] MEDS: ZOSYN 3.375 GM in NS 50 ML IV SCH ×3 (09:01→16:41)
[2018-10-02] MEDS: BASAGLAR SUBQ SCH ×2 (09:01→22:05)
--- NOTE | 2018-10-02 09:02 | PROGRESS NOTE ---
DATE: 10/02/2018 SUBJECTIVE: The patient reports feeling fine. Last night, he had an episode of fever, but he is not coughing. He does not have any burning on urination. He denies any other complaints. OBJECTIVE: Vital Signs: Temperature 99.7 degrees, heart rate 105, respiratory rate 18, blood pressure 133/61, O2 saturation 92% on room air. General Examination: This is a chronically ill- appearing, 83-year-old, male lying in bed, in no acute distress. HEENT: Head is normocephalic and atraumatic. Neck: No JVD. No carotid bruits. No lymphadenopathy. Cardiovascular: S1, S2 heard. Tachycardic. No murmurs, gallops, or rubs noted. Respiratory: Some rhonchi in both pulmonary bases. The patient is not using any accessory muscles or having work of breathing. Abdomen: Soft. Nontender to palpation. Bowel sounds present. No organomegaly noted. Extremities: No clubbing or cyanosis. Mild edema in both lower extremities. Peripheral pulses present in both legs. Neurological: The patient is awake and alert, oriented x3. Moves 4 extremities. LABORATORY DATA: White cell count 16.86, hemoglobin 10.6, hematocrit 33.8, platelets 326,000. BMP remarkable for creatinine 3.3, glucose 211. Hemoglobin A1c 6.8. ASSESSMENT AND PLAN: 1. Sepsis secondary to urinary tract infection. White cell count is still elevated. I am changing antibiotics. Will start Teflaro 600 mg IV q.12 hours and will switch cefepime for Zosyn 3.375 g IV q.6 hours. Will continue to check CBC and BMP daily. 2. Metabolic encephalopathy related to an infection. I think this condition is getting better. Will continue to monitor this patient closely. 3. Diabetes mellitus type 2 is well controlled actually because hemoglobin A1c is 6.8. At this point, will continue with sliding scale insulin and will continue with home dosage of Lantus. Will do Accu-Cheks before meals and also at bedtime. 4. Hypertension. Blood pressure is under control. I do not think we need to start any medication at this time. 5. Parkinson disease. Will continue with home medications. 6. Congestive heart failure. That condition is stable. Will continue home medications. DISPOSITION: Will continue to monitor this patient in the ICU. Will wait for results of urine and blood cultures. cc: Erickson Kwon MD
[2018-10-02] MEDS: HUMALOG SUBQ SCH ×4 (11:04→22:13)
[2018-10-02] MEDS: COLACE PO SCH (22:03)
[2018-10-02] MEDS: EFFEXOR PO SCH (22:04)
[2018-10-02] MEDS: ELAVIL PO SCH (22:04)
[2018-10-02] MEDS: LIPITOR PO SCH (22:04)
[2018-10-02] MEDS ORDERED: INSULIN PEN NEEDLES ONE (22:08)
[2018-10-03] MEDS: ENTRESTO 24 MG-26 MG TABLET PO SCH ×3 (00:41→21:44)
[2018-10-03] MEDS: ROBINUL PO SCH ×2 (00:41→21:45)
[2018-10-03] MEDS: ZOSYN 3.375 GM in NS 50 ML IV SCH ×3 (00:42→13:15)
[2018-10-03] MEDS: MS CONTIN PO SCH ×4 (00:42→21:43)
[2018-10-03] MEDS: LOVENOX SUBQ SCH (00:45)
[2018-10-03 05:26] LABS: URINE SOURCE CLEAN CATCH
[2018-10-03 05:29] LABS: BILIRUBIN URINE NEGATIVE (NEGATIVE); BLOOD URINE SMALL (NEGATIVE); COLOR YELLOW; GLUCOSE URINE 100 mg/dL (NEGATIVE); KETONE URINE NEGATIVE (NEGATIVE); LEUKOCYTES URINE TRACE (NEGATIVE); NITRITE URINE NEGATIVE (NEGATIVE); PROTEIN URINE 50 mg/dL (NEGATIVE); SP GRAVITY URINE 1.018; TURBIDITY URINE CLEAR (CLEAR); UROBILINOGEN URINE NORMAL (NORMAL)
[2018-10-03 05:51] LABS: UR EPITHELIAL CELLS <10 /HPF (<10); URINE BACTERIA NEGATIVE /HPF; URINE CASTS NONE SEEN; URINE CRYSTALS CA OXALATE PRESENT; URINE RBC <10 /HPF (<10); URINE WBC <10 /HPF (<10)
[2018-10-03] MEDS: SYNTHROID PO SCH (06:55)
[2018-10-03] MEDS: HUMALOG SUBQ SCH ×4 (06:55→23:55)
[2018-10-03 07:20] LABS: BASO# 0.01 X1000 (0.0-0.2); BASO% 0.1 % (0.0-0.8); EOS# 0.24 X1000 (0.0-0.7); EOS% 1.9 % (0.0-10.0); HEMATOCRIT 31.3 % (42.0-52.0); HEMOGLOBIN 9.9 g/dL (14.0-18.0); IMM GRAN# 0.03 X1000 (0.0-0.04); IMM GRAN% 0.2 % (0.0-0.5); LYMPH# 1.08 X1000 (1.2-3.4); LYMPH% 8.4 % (20.5-51.1); MCH 28.9 PG (27-31); MCHC 31.6 g/dL (33-37); MCV 91.5 FL (81-99); MONO# 1.11 X1000 (0.11-0.59); MONO% 8.6 % (1.7-9.3); MPV 10.2 FL (7.4-10.4); NEUT# 10.46 X1000 (1.4-6.5); NEUT% 80.8 % (42.2-75.2); PLT 225 X1000 (130-400); RBC 3.42 XMIL (4.7-6.1); RDW 13.1 % (11.5-14.5); WBC 12.93 X1000 (4.8-10.8)
[2018-10-03] MEDS ORDERED: VANCOMYCIN IV PER PHARMACY MISC SCH (07:30)
[2018-10-03] MEDS: PROTONIX PO SCH (08:39)
[2018-10-03] MEDS: LASIX PO SCH (08:40)
[2018-10-03] MEDS: MIRAPEX PO SCH ×2 (08:40→21:43)
[2018-10-03] MEDS: ASPIRIN EC PO SCH (08:41)
[2018-10-03] MEDS: CENTRUM SILVER PO SCH (08:41)
[2018-10-03] MEDS: LOPRESSOR PO SCH (08:41)
[2018-10-03] MEDS: FLOMAX PO SCH ×2 (08:41→21:43)
[2018-10-03] MEDS: SINEMET 25/100 PO SCH ×4 (08:41→21:43)
[2018-10-03] MEDS: FERROUS SULFATE PO SCH (08:41)
[2018-10-03] MEDS: FISH OIL CONCENTRATE PO SCH (08:41)
[2018-10-03] MEDS: MIRALAX PO SCH (08:42)
[2018-10-03] MEDS: VITAMIN E PO SCH (08:42)
[2018-10-03] MEDS: BASAGLAR SUBQ SCH ×2 (08:43→21:44)
[2018-10-03] MEDS ORDERED: VANCOMYCIN 2,000 MG in NS 500 ML IV ONE (09:00)
[2018-10-03 09:21] LABS: CALCIUM 8.5 mg/dL (8.8-10.2); CREATININE 1.2 mg/dL (0.7-1.2); POTASSIUM 3.9 mmol/L (3.5-5.1)
--- NOTE | 2018-10-03 09:55 | INFECTIOUS DISEASE CONSULT REP ---
DATE: 10/03/2018 CONCLUSION: The patient has a methicillin-resistant Staph aureus bacteremia. I am a little uncertain as to where this could have originated from. He did injure his leg and possibly, the bacteremia occurred from that. He has an IV in place, but I do not see any evidence of a phlebitis, which could be causing the patient's bacteremia. The patient also has a gram-negative presley urinary tract infection. RECOMMENDATIONS: I am going to stop the current antibiotics which consist of vancomycin, Zosyn, and Levaquin and instead, I am going to put the patient on daptomycin and cefepime. DISCUSSION: The patient was not much of a historian. He said he fell and injured his right leg and that was pretty much about all he could say. He did not remember having any fever, or chills, or shortness of breath. He did not remember whether he had any urinary symptoms such as dysuria or urinary frequency. According to the history and physical, when the patient was admitted, he had an altered mental status along with fever and chills. His blood culture is growing methicillin- resistant Staph aureus. His urine is growing gram-negative rods, which have not yet been identified. His chest x- ray showed clear lung cooper. CT scan of the head showed no acute disease, and there was no sinusitis. PAST MEDICAL HISTORY/REVIEW OF SYSTEMS: Eyes and ears: Patient wears glasses, but he can hear well. Neck: No stiffness. Respiratory: No cough or shortness of breath. GI: No nausea, vomiting, or diarrhea. Genitourinary: No dysuria or flank pain. Neurologic : The patient did not lose consciousness, and he does not remember feeling confused. PHYSICAL EXAMINATION: Lungs: Clear to auscultation. Cardiovascular: Heart rate is regular. Abdomen: Soft and nontender. Extremities: The patient fell on the same leg that he had his open reduction and internal fixation of the tibia. Neurologic: Patient is awake. He can move his extremities. There is no tremor. His sensation is intact to touch. His memory as regarding his medical history was decreased. General: Chronically ill appearing, no acute distress. HEENT: Hearing and vision grossly intact. Extremities: Right leg swollen but not red or tender. PREVIOUS HOSPITALIZATIONS AND OPERATIONS: He has had a cholecystectomy and a partial colectomy for colon cancer. MEDICAL DISEASES: Positive for cancer, diabetes mellitus, hypertension, parkinsonism, congestive heart failure, and hypothyroidism. INFECTIOUS DISEASE HISTORY: Positive for UTI. Negative for pneumonia. FAMILY HISTORY: Positive for diabetes mellitus, myocardial infarction, stroke, and cancer. SOCIAL HISTORY[place] He is . He does not smoke cigarettes, drink alcoholic beverages, or abuse drugs. HOME MEDICATIONS: Amitriptyline, atorvastatin, insulin, carbidopa/levodopa, Lovenox, Flomax, Lasix, metoprolol, Mirapex, morphine, Protonix, valsartan, Synthroid, Effexor. MEDICAL DISEASES: Positive for cancer, diabetes mellitus, hypertension, parkinsonism, congestive heart failure, and hypothyroidism. PREVIOUS HOSPITALIZATIONS AND OPERATIONS: He has had skin surgery of his skull , colon surgery, an AICD, a cholecystectomy, a right open reduction and internal fixation of the tibia, cataract surgery and placement of a coronary stent. ALLERGIES: The patient is allergic to sulfa and adhesive tape. LABORATORY STUDIES: His white count is 12,930, hemoglobin 9.9, platelet count 225,000. Blood cultures are growing methicillin-resistant Staph aureus. Urine culture is growing gram-negative presley. Chest x-ray is clear. CT scan of the head showed no acute disease, and his sinuses were clear. Thank you for the consult. cc: Gonzalo Lane MD [facility]
--- NOTE | 2018-10-03 10:17 | INFECTIOUS DISEASE CONSULT REP ---
DATE: 10/03/2018 ADDENDUM: The patient most likely got his urinary tract infection from having a Villarreal catheter placed. His methicillin-resistant Staph aureus bacteremia I think most likely originates from his right leg, which is where he had the injury and surgery done. The leg is swollen, although it is not erythematous and it is not tender. cc: Gonzalo Lane MD
[2018-10-03] MEDS: LEVAQUIN PO SCH (11:32)
--- NOTE | 2018-10-03 13:07 | EKG Report ---
Test Performed on : 10/01/2018 5:55:43 PM Test Reason : Stroke like symptoms Blood Pressure : / mmHG Vent. Rate : 127 BPM Atrial Rate : 147 BPM P-R Int : 000 ms QRS Dur : 138 ms QT Int : 376 ms P-R-T Axes : 000 132 081 degrees QTc Int : 546 ms Ventricular-paced rhythm with occasional premature ventricular complexes. Abnormal ECG When compared with ECG of 26-SEP-2018 12:57, Vent. rate has increased BY 46 BPM Unconfirmed Result
--- NOTE | 2018-10-03 16:22 | PROGRESS NOTE ---
DATE: 10/03/2018 SUBJECTIVE: Patient reports feeling fine, denies any fever or chills. Patient is very hard of hearing. OBJECTIVE: Vitals: Temperature 97.9 degrees, heart rate 86, respiratory 17, blood pressure 120/64, O2 saturation 98% on room air. General: This is a chronically ill appearing 83-year- old male lying in bed in no acute distress. HEENT: Head is normocephalic, atraumatic. Neck: No JVD noted, no carotid bruit, no lymphadenopathy, no thyromegaly. Cardiovascular: S1, S2 heard. No murmurs, gallops, or rubs. Regular rate and rhythm. Respiratory: Clear bilaterally to auscultation. No work of breathing or using accessory muscles. Abdomen: Soft, nontender to palpation. Bowel sounds present. No organomegaly. Extremities: No clubbing, cyanosis, or edema. Peripheral pulses present in both legs. Neurologic: Patient is awake, alert, hard of hearing, moves 4 extremities. LABORATORY DATA: White cell count 12.93, hemoglobin 9.9, hematocrit 31.3, platelets 225,000, normal BMP with blood sugar 196 and creatinine 1.2. ASSESSMENT AND PLAN: 1. Sepsis secondary to methicillin-resistant Staphylococcus aureus bacteremia/Klebsiella urinary tract infection . Those are the results of blood cultures. We have consulted Dr. Lane from Infectious Disease who has changed antibiotics to vancomycin and cefepime although there has not been any new orders in the computer. At this point will leave the management of antibiotics to Dr. Lane. I think tomorrow we are going to repeat blood cultures see that infection is being eradicated. 2. Metabolic encephalopathy related to infection, I think this condition is getting better, will continue to monitor. 3. Diabetes mellitus type 2. This condition is well controlled with hemoglobin A1c 6.8, will continue with sliding scale insulin and Accu-Cheks before meals and also bedtime. 4. Hypertension, blood pressure is under control, will continue with the same management. 5. Parkinson disease. Will continue home medications. 6. Congestive heart failure not on an exacerbation, will continue to monitor. 7. Disposition. Patient is I think getting better, will repeat cultures between tomorrow and the day after blood culture and urine culture, will go from there. cc: Erickson Kwon MD
[2018-10-03] MEDS: COLACE PO SCH (21:43)
[2018-10-03] MEDS: EFFEXOR PO SCH (21:43)
[2018-10-03] MEDS: LIPITOR PO SCH (21:43)
[2018-10-03] MEDS: ELAVIL PO SCH (21:43)
[2018-10-04] MEDS: SYNTHROID PO SCH (06:05)
[2018-10-04] MEDS: HUMALOG SUBQ SCH ×4 (06:05→22:16)
[2018-10-04] MEDS: LOVENOX SUBQ SCH (06:05)
[2018-10-04 07:30] LABS: BASO# 0.02 X1000 (0.0-0.2); BASO% 0.2 % (0.0-0.8); EOS# 0.28 X1000 (0.0-0.7); EOS% 2.3 % (0.0-10.0); HEMATOCRIT 32.4 % (42.0-52.0); HEMOGLOBIN 10.2 g/dL (14.0-18.0); IMM GRAN# 0.04 X1000 (0.0-0.04); IMM GRAN% 0.3 % (0.0-0.5); LYMPH# 1.36 X1000 (1.2-3.4); LYMPH% 11.3 % (20.5-51.1); MCH 28.3 PG (27-31); MCHC 31.5 g/dL (33-37); MONO# 1.01 X1000 (0.11-0.59); MONO% 8.4 % (1.7-9.3); MPV 10.2 FL (7.4-10.4); NEUT# 9.29 X1000 (1.4-6.5); NEUT% 77.5 % (42.2-75.2); PLT 230 X1000 (130-400); RDW 12.8 % (11.5-14.5)
[2018-10-04 07:52] LABS: AGAP 12; BUN 31 mg/dL (8-22); CALCIUM 8.5 mg/dL (8.8-10.2); CHLORIDE 99 mmol/L (98-107); COSMO 275; ESTIMATED GFR > 60; GLUCOSE 174 mg/dL (70-104); POTASSIUM 3.6 mmol/L (3.5-5.1); SODIUM 132 mmol/L (136-145); TCO2 21 mmol/L (25-35)
[2018-10-04] MEDS ORDERED: CALMOSEPTINE OINTMENT TOP PRN (09:35)
[2018-10-04] MEDS: FERROUS SULFATE PO SCH (09:45)
[2018-10-04] MEDS: LEVAQUIN PO SCH (09:45)
[2018-10-04] MEDS: SINEMET 25/100 PO SCH ×4 (09:46→22:16)
[2018-10-04] MEDS: MIRAPEX PO SCH ×2 (09:46→22:16)
[2018-10-04] MEDS: CENTRUM SILVER PO SCH (09:46)
[2018-10-04] MEDS: LOPRESSOR PO SCH (09:46)
[2018-10-04] MEDS: VITAMIN E PO SCH (09:46)
[2018-10-04] MEDS: ASPIRIN EC PO SCH (09:46)
[2018-10-04] MEDS: PROTONIX PO SCH (09:46)
[2018-10-04] MEDS: FLOMAX PO SCH ×2 (09:46→22:15)
[2018-10-04] MEDS: BASAGLAR SUBQ SCH ×2 (09:47→22:16)
[2018-10-04] MEDS: MIRALAX PO SCH (09:47)
[2018-10-04] MEDS: LASIX PO SCH (09:47)
[2018-10-04] MEDS: FISH OIL CONCENTRATE PO SCH (09:47)
[2018-10-04] MEDS: ENTRESTO 24 MG-26 MG TABLET PO SCH ×2 (09:47→22:16)
[2018-10-04] MEDS: MS CONTIN PO SCH ×3 (10:02→22:15)
[2018-10-04] MEDS: VANCOMYCIN 1,250 MG in NS 250 ML IV SCH (12:18)
--- NOTE | 2018-10-04 18:22 | PROGRESS NOTE ---
DATE: 10/04/2018 SUBJECTIVE: Patient reports feeling fine. Denies any fever or chills. OBJECTIVE: Vital Signs: Temperature 98.9, heart rate 79, respiratory rate 18, blood pressure 115/61, O2 saturation 100% on room air. General Examination: This is an 83- year-old, chronically ill appearing, male, lying in bed, in no acute distress. HEENT: Head is normocephalic, atraumatic. Neck: No JVD noted. No carotid bruits. No lymphadenopathy. No thyromegaly. Cardiovascular: S1, S2 heard. No murmurs, gallops, or rubs. Regular rate and rhythm. Respiratory: Coarse breath sounds in both pulmonary bases. No work of breathing. Abdomen: Soft. Nontender to palpation. Bowel sounds present. No organomegaly noted. Extremities: No clubbing, cyanosis, or edema. Peripheral pulses present in both legs. Neurological: Patient alert and oriented x3. Moves 4 extremities. LABORATORY DATA: White cell count 12.00, hemoglobin 10.2, hematocrit 32.4, platelets 230. BMP: Sodium 132, rest of the BMP normal. ASSESSMENT AND PLAN: 1. Sepsis secondary to MRSA/Klebsiella urinary tract infection. Dr. Lane from Infectious Disease is following this patient. Apparently, Dr. Lane wants to change antibiotics according his note to daptomycin and cefepime, but there are no new orders in the computer. I will leave the management of the antibiotics to him. Will continue with the same medications. 2. Metabolic encephalopathy. Resolved. 3. Diabetes mellitus type 2. We will continue with sliding scale insulin. Accu -Chek before meals and also at bedtime. 4. Hypertension. Blood pressure is under control. We will continue with the same management. 5. Parkinson disease. We will continue home medications. 6. Congestive heart failure. Not on any exacerbation. We will continue to monitor. 7. Disposition. We will keep this patient over the weekend and on Saturday we will see if he can be sent home with antibiotics. Physical therapy on board. Will continue to monitor this patient closely. cc: MD ARNAV De Leon
[2018-10-04] MEDS: LIPITOR PO SCH (22:15)
[2018-10-04] MEDS: ELAVIL PO SCH (22:15)
[2018-10-04] MEDS: EFFEXOR PO SCH (22:16)
[2018-10-04] MEDS: COLACE PO SCH (22:16)
[2018-10-04] MEDS: ROBINUL PO SCH (22:17)
[2018-10-05] MEDS: HUMALOG SUBQ SCH ×4 (06:33→23:39)
[2018-10-05] MEDS: LOVENOX SUBQ SCH (06:33)
[2018-10-05] MEDS: SYNTHROID PO SCH (06:33)
[2018-10-05 08:21] LABS: BASO# 0.04 X1000 (0.0-0.2); BASO% 0.4 % (0.0-0.8); EOS% 2.9 % (0.0-10.0); HEMATOCRIT 31.9 % (42.0-52.0); HEMOGLOBIN 10.2 g/dL (14.0-18.0); IMM GRAN# 0.02 X1000 (0.0-0.04); IMM GRAN% 0.2 % (0.0-0.5); LYMPH# 1.39 X1000 (1.2-3.4); LYMPH% 13.5 % (20.5-51.1); MCH 28.7 PG (27-31); MCV 89.9 FL (81-99); MONO# 0.94 X1000 (0.11-0.59); MONO% 9.1 % (1.7-9.3); MPV 10.4 FL (7.4-10.4); NEUT# 7.59 X1000 (1.4-6.5); NEUT% 73.9 % (42.2-75.2); PLT 233 X1000 (130-400); RBC 3.55 XMIL (4.7-6.1); RDW 12.6 % (11.5-14.5); WBC 10.28 X1000 (4.8-10.8)
[2018-10-05 08:26] LABS: AGAP 11; BUN 22 mg/dL (8-22); CALCIUM 8.8 mg/dL (8.8-10.2); CHLORIDE 98 mmol/L (98-107); COSMO 277; ESTIMATED GFR > 60; GLUCOSE 155 mg/dL (70-104); POTASSIUM 3.2 mmol/L (3.5-5.1); SODIUM 135 mmol/L (136-145); TCO2 26 mmol/L (25-35)
[2018-10-05 08:39] LABS: BANDS 6 % (0-1); LYMPHS 20 % (21-51); MONO 4 % (1-9); SEGS 70 % (42-75)
[2018-10-05] MEDS ORDERED: INSULIN PEN NEEDLES ONE (08:55)
[2018-10-05] MEDS: FERROUS SULFATE PO SCH (10:03)
[2018-10-05] MEDS: LOPRESSOR PO SCH (10:30)
[2018-10-05] MEDS: FISH OIL CONCENTRATE PO SCH (10:30)
[2018-10-05] MEDS: ASPIRIN EC PO SCH (10:30)
[2018-10-05] MEDS: LEVAQUIN PO SCH (10:30)
[2018-10-05] MEDS: MIRAPEX PO SCH ×2 (10:31→22:13)
[2018-10-05] MEDS: FLOMAX PO SCH ×2 (10:31→22:13)
[2018-10-05] MEDS: ENTRESTO 24 MG-26 MG TABLET PO SCH ×2 (10:32→22:13)
[2018-10-05] MEDS: PROTONIX PO SCH (10:32)
[2018-10-05] MEDS: SINEMET 25/100 PO SCH ×4 (10:33→22:13)
[2018-10-05] MEDS: MS CONTIN PO SCH ×3 (10:33→22:13)
[2018-10-05] MEDS: CENTRUM SILVER PO SCH (10:33)
[2018-10-05] MEDS: BASAGLAR SUBQ SCH ×2 (10:33→22:13)
[2018-10-05] MEDS: VITAMIN E PO SCH (10:37)
[2018-10-05] MEDS: MIRALAX PO SCH (10:37)
[2018-10-05] MEDS: LASIX PO SCH (13:15)
[2018-10-05] MEDS: VANCOMYCIN 1,250 MG in NS 250 ML IV SCH (13:35)
--- NOTE | 2018-10-05 18:57 | PROGRESS NOTE ---
DATE: 10/05/2018 SUBJECTIVE: The patient reports feeling fine. Denies any fever or chills. who is at bedside reports that he is feeling fine. OBJECTIVE: Vital Signs: Temperature 97.6 degrees, heart rate 84, respiratory rate 18, blood pressure 109/60, O2 saturations 97% on room air. General: This is a chronically, ill-appearing 83-year-old male, lying in bed in no acute distress. HEENT: Head is normocephalic, atraumatic. Neck: No JVD noted. No carotid bruits. No lymphadenopathy. No thyromegaly. Cardiovascular: S1, S2 heard. No murmurs, gallops, or rubs. Regular rate and rhythm. Respiratory: Coarse breath sounds are still present in both pulmonary bases. Much better in comparing with admission. The patient is not using any accessory muscles or having work of breathing. Abdomen: Soft, nontender to palpation. Bowel sounds present. No organomegaly. Extremities: No clubbing, cyanosis, or edema. Peripheral pulses present in both legs. Neurological: Patient alert and oriented x3. Moves 4 extremities. LABORATORY DATA: White cell count 10.28, hemoglobin 10.2, hematocrit 31.9, platelets 233,000. BMP remarkable for potassium 3.2. The renal function is okay. Creatinine is okay. ASSESSMENT AND PLAN: 1. Sepsis secondary to methicillin-resistant Staphylococcus aureus bacteremia Klebsiella urinary tract infection. Patient has been on vancomycin, Levaquin, and Zosyn. Dr. Lane from Infectious Disease is following this patient. He reports wanted to change antibiotics to daptomycin and cefepime. We were called today because the second blood culture is still positive for MRSA still. So at this point I think we will go ahead and change vancomycin for daptomycin. We will stop Zosyn and Levaquin and will start cefepime which were the original orders per Dr. Lane. We will follow his recommendation. We will the decision to Dr. Lane to when we are going to redraw blood cultures, and we will go from there. 2. Diabetes mellitus type 2. We will continue with sliding scale insulin and scan Accu-Cheks before meals and also at bedtime. 3. Hypertension. Blood pressure is under control. We will continue medications. 4. Parkinson disease. We will continue home medications. 5. Systolic congestive heart failure. Patient is not in any exacerbation. We will continue to monitor. 6. Disposition. At this point, we will continue to monitor this patient closely. I talked with today, and she expressed her desires not to go to rehab but go home with home health. We will definitely honor her wishes. cc: Erickson Kwon MD [facility]
[2018-10-05] MEDS: CUBICIN 500 MG in NS 100 ML IV SCH (22:11)
[2018-10-05] MEDS: LIPITOR PO SCH (22:13)
[2018-10-05] MEDS: COLACE PO SCH (22:13)
[2018-10-05] MEDS: ELAVIL PO SCH (22:13)
[2018-10-05] MEDS: EFFEXOR PO SCH (22:13)
[2018-10-05] MEDS: ROBINUL PO SCH (22:14)
[2018-10-05] MEDS: MAXIPIME 2 GM in NS 100 ML IV SCH (23:41)
[2018-10-06] MEDS: SYNTHROID PO SCH (06:12)
[2018-10-06] MEDS: MAXIPIME 2 GM in NS 100 ML IV SCH (06:12)
[2018-10-06] MEDS: LOVENOX SUBQ SCH (06:13)
[2018-10-06] MEDS: HUMALOG SUBQ SCH ×4 (07:28→23:20)
[2018-10-06 07:52] LABS: BASO# 0.05 X1000 (0.0-0.2); BASO% 0.5 % (0.0-0.8); EOS# 0.24 X1000 (0.0-0.7); EOS% 2.3 % (0.0-10.0); HEMATOCRIT 33.1 % (42.0-52.0); HEMOGLOBIN 10.7 g/dL (14.0-18.0); IMM GRAN# 0.04 X1000 (0.0-0.04); IMM GRAN% 0.4 % (0.0-0.5); LYMPH# 1.64 X1000 (1.2-3.4); LYMPH% 15.6 % (20.5-51.1); MCH 28.5 PG (27-31); MCHC 32.3 g/dL (33-37); MONO# 0.93 X1000 (0.11-0.59); MONO% 8.9 % (1.7-9.3); NEUT% 72.3 % (42.2-75.2); PLT 267 X1000 (130-400); RBC 3.76 XMIL (4.7-6.1); RDW 12.6 % (11.5-14.5)
[2018-10-06 08:14] LABS: AGAP 12; BUN 17 mg/dL (8-22); CALCIUM 8.7 mg/dL (8.8-10.2); CHLORIDE 101 mmol/L (98-107); COSMO 273; CREATININE 0.9 mg/dL (0.7-1.2); ESTIMATED GFR > 60; GLUCOSE 92 mg/dL (70-104); POTASSIUM 2.9 mmol/L (3.5-5.1); SODIUM 136 mmol/L (136-145); TCO2 23 mmol/L (25-35)
[2018-10-06] MEDS: MIRALAX PO SCH (08:19)
[2018-10-06] MEDS: FISH OIL CONCENTRATE PO SCH (08:19)
[2018-10-06] MEDS: CENTRUM SILVER PO SCH (08:19)
[2018-10-06] MEDS: FERROUS SULFATE PO SCH (08:20)
[2018-10-06] MEDS: SINEMET 25/100 PO SCH ×4 (08:20→22:57)
[2018-10-06] MEDS: PROTONIX PO SCH (08:20)
[2018-10-06] MEDS: LASIX PO SCH (08:20)
[2018-10-06] MEDS: MIRAPEX PO SCH ×2 (08:20→22:56)
[2018-10-06] MEDS: LOPRESSOR PO SCH (08:20)
[2018-10-06] MEDS: ASPIRIN EC PO SCH (08:20)
[2018-10-06] MEDS: FLOMAX PO SCH ×2 (08:20→22:58)
[2018-10-06] MEDS: ENTRESTO 24 MG-26 MG TABLET PO SCH ×2 (08:20→22:56)
[2018-10-06] MEDS: VITAMIN E PO SCH (08:21)
[2018-10-06] MEDS: MS CONTIN PO SCH ×3 (08:21→22:56)
[2018-10-06] MEDS: BASAGLAR SUBQ SCH ×2 (09:42→22:58)
[2018-10-06] MEDS ORDERED: POTASSIUM CHLORIDE 60 MEQ in NS 500 ML IV ONE (13:17)
--- NOTE | 2018-10-06 14:57 | PROGRESS NOTE ---
DATE: 10/06/2018 SUBJECTIVE: Patient reports feeling fine. who is at bedside reports that he does not have any complaint at this time. He is a little hard of hearing. OBJECTIVE: Vital Signs: Temperature 97.9, heart rate 86, respiratory rate 18, blood pressure 111/52, O2 sat 98% on room air. General: This is a chronically ill-looking 83-year-old, male lying in bed in no acute distress. HEENT: Head is normocephalic, atraumatic. Neck: No JVD noted. No carotid bruits. No lymphadenopathy. Cardiovascular: S1, S2 heard. No murmurs, gallops or rubs. Regular rate and rhythm. Respiratory: Coarse breath sounds still noted in both pulmonary bases. Patient is not using any accessory muscles or having work of breathing. Abdomen: Soft, nontender to palpation. Bowel sounds present. No organomegaly. Extremities: No clubbing, cyanosis or edema. Peripheral pulses present in both legs. Neurologic: Patient alert oriented x 3. Moves 4 extremities. Hard of hearing. LABORATORY DATA: White cell count. 10.5, hemoglobin 10.7, hematocrit 33.1, platelets 267,000. With BMP remarkable for potassium 2.9. ASSESSMENT AND PLAN: 1. Sepsis secondary to MRSA bacteremia/Klebsiella urinary tract infection. The patient currently is on daptomycin and cefepime. He has been receiving previously Teflaro. Because of this sacrum, blood cultures positive for MRSA, that is why this medication was changed. Dr. Lane is monitoring this patient. We will follow recommendations. 2. Diabetes mellitus type 2. We will continue with sliding scale insulin. Accu-Chek before meals and also at bedtime. 3. Hypertension. Blood pressure is under control. We will continue with same medications. 4. Chronic systolic congestive heart failure. Patient is not on any exacerbation. We will continue to monitor. 5. Disposition: At this point, the patient is supposed to stay in the hospital until we check that blood cultures are negative. Regarding disposition, patient's has informed me that she wants her to go back home with home health services. She thinks that she will be able to take care of him. cc: Erickson Kwon MD
--- NOTE | 2018-10-06 18:06 | INFECTIOUS DISEASE PROGRESS NO ---
DATE: 10/06/2018 PRESENT ILLNESS: The patient has a methicillin-resistant Staph aureus bacteremia which I think originates from infection of his right leg which recently he had surgery on. Recently he had an open reduction and internal fixation of the leg. The leg does appear to be infected. The patient has a Klebsiella urinary tract infection; however, this is asymptomatic and the patient has a Villarreal catheter in. MEDICATIONS: Currently, the patient is on cefepime and daptomycin. PHYSICAL EXAMINATION: Vital Signs: Temperature is 98.1, pulse 92, respirations 16, blood pressure 104/58. General: This is is an ill-appearing elderly male. He is in no acute distress. Head, Eyes, Ears, Nose and Throat: He can hear my spoken words and he can see near objects. Neck: No meningismus. Lungs: Clear to auscultation. Cardiovascular: Heart rate is regular. Abdomen: Soft and nontender. Neurologic: The patient is awake. He can move his extremities. There is no tremor. Extremities: The patient's right leg is swollen, but it is not erythematous and it is not tender to soft palpation. LAB AND X-RAY: The patient's CBC shows a white count of 10,500, hemoglobin 10.7 and platelet count 267,000. Creatinine is 0.9. GFR is greater than 60. Blood cultures are growing methicillin-resistant Staph aureus and the urine is growing Klebsiella. ASSESSMENT AND PLAN: The patient has methicillin-resistant Staph aureus infection which originates from I believe his right leg which he originally had an open reduction and internal fixation on. My plan is to treat with daptomycin for a total of 8 weeks and then put the patient on a long-term antibiotic to hopefully keep his infection suppressed. As regarding the Klebsiella urinary tract infection, the patient has a Villarreal catheter in and the urinary tract infection is asymptomatic. Therefore, it does not deserve treatment and I am going to discontinue cefepime. I am going to stop the patient's Lipitor because it combined with daptomycin can have an enhanced possibility of muscle breakdown. COMORBIDITIES: The patient is elderly. He has diabetes and parkinsonism and congestive heart failure. cc: Gonzalo Lane MD
[2018-10-06] MEDS: EFFEXOR PO SCH (22:56)
[2018-10-06] MEDS: COLACE PO SCH (22:57)
[2018-10-06] MEDS: CUBICIN 500 MG in NS 100 ML IV SCH (22:58)
[2018-10-06] MEDS: ROBINUL PO SCH (22:58)
[2018-10-06] MEDS: ELAVIL PO SCH (23:41)
[2018-10-07] MEDS: HUMALOG SUBQ SCH ×4 (06:02→20:42)
[2018-10-07] MEDS: LOVENOX SUBQ SCH (06:20)
[2018-10-07] MEDS: SYNTHROID PO SCH (06:20)
[2018-10-07 07:48] LABS: BASO# 0.05 X1000 (0.0-0.2); BASO% 0.5 % (0.0-0.8); EOS# 0.31 X1000 (0.0-0.7); HEMATOCRIT 32.4 % (42.0-52.0); HEMOGLOBIN 10.5 g/dL (14.0-18.0); IMM GRAN# 0.03 X1000 (0.0-0.04); IMM GRAN% 0.3 % (0.0-0.5); LYMPH# 1.68 X1000 (1.2-3.4); LYMPH% 16.2 % (20.5-51.1); MCH 28.8 PG (27-31); MCHC 32.4 g/dL (33-37); MONO# 0.84 X1000 (0.11-0.59); MONO% 8.1 % (1.7-9.3); MPV 9.6 FL (7.4-10.4); NEUT# 7.47 X1000 (1.4-6.5); NEUT% 71.9 % (42.2-75.2); PLT 320 X1000 (130-400); RBC 3.64 XMIL (4.7-6.1); RDW 12.7 % (11.5-14.5); WBC 10.38 X1000 (4.8-10.8)
[2018-10-07 08:12] LABS: AGAP 11; BUN 17 mg/dL (8-22); CALCIUM 8.9 mg/dL (8.8-10.2); CHLORIDE 103 mmol/L (98-107); COSMO 278; ESTIMATED GFR > 60; GLUCOSE 106 mg/dL (70-104); POTASSIUM 3.3 mmol/L (3.5-5.1); SODIUM 138 mmol/L (136-145); TCO2 24 mmol/L (25-35)
[2018-10-07] MEDS ORDERED: KLOR-CON PO ONE (08:16)
[2018-10-07] MEDS: MIRALAX PO SCH (08:17)
[2018-10-07] MEDS: LOPRESSOR PO SCH (08:18)
[2018-10-07] MEDS: FISH OIL CONCENTRATE PO SCH (08:18)
[2018-10-07] MEDS: VITAMIN E PO SCH (08:18)
[2018-10-07] MEDS: MS CONTIN PO SCH ×3 (08:18→20:33)
[2018-10-07] MEDS: MIRAPEX PO SCH ×2 (08:18→20:33)
[2018-10-07] MEDS: BASAGLAR SUBQ SCH ×3 (08:19→20:43)
[2018-10-07] MEDS: PROTONIX PO SCH (08:19)
[2018-10-07] MEDS: FERROUS SULFATE PO SCH (08:19)
[2018-10-07] MEDS: ENTRESTO 24 MG-26 MG TABLET PO SCH ×2 (08:19→20:33)
[2018-10-07] MEDS: FLOMAX PO SCH ×2 (08:19→20:33)
[2018-10-07] MEDS: SINEMET 25/100 PO SCH ×4 (08:19→20:31)
[2018-10-07] MEDS: CENTRUM SILVER PO SCH (08:19)
[2018-10-07] MEDS: LASIX PO SCH (08:19)
[2018-10-07] MEDS: ASPIRIN EC PO SCH (08:19)
[2018-10-07 08:30] LABS: BANDS 2 % (0-1); EOS 2 % (1-10); LYMPHS 14 % (21-51); SEGS 82 % (42-75)
--- NOTE | 2018-10-07 10:47 | PROGRESS NOTE ---
DATE: 10/07/2018 SUBJECTIVE: The patient is resting comfortably in bed. He appears to be confused. No acute events noted overnight. OBJECTIVE: Vital Signs: Temperature 97.9 degrees, blood pressure 128/69, heart rate 94, respirations 16, O2 saturation 98% on room air. General: This is a chronically ill-appearing, elderly male lying in bed, in no acute distress. Heart: S1 and S2 normal. Regular rate and rhythm. Lungs: Equal air entry bilaterally. No crackles. No rales. Abdomen: Positive bowel sounds. Soft, nontender, nondistended. Extremities: 1+ edema. Neurologic: The patient is awake, but confused. LABORATORY DATA: White blood cell count 10, hemoglobin 10, hematocrit 32, platelets 320,000. Sodium 138, potassium 3.3, chloride 103, CO2 24, BUN 17, creatinine 1, glucose 106. ASSESSMENT AND PLAN: 1. Bacteremia secondary to methicillin-resistant Staphylococcus aureus. Continue on daptomycin as directed by Dr. Lane. 2. Chronic systolic congestive heart failure. Stable. Continue on Entresto and Lopressor. 3. Chronic obstructive pulmonary disease. Continue on bronchodilator therapy. 4. Dementia. Aware. 5. Hypothyroidism. Continue on Synthroid. 6. Benign prostatic hypertrophy. Continue on Flomax. 7. Situational depression. Continue on Effexor. 8. Hypokalemia. Will replace the patient's potassium. 9. Diabetes mellitus type 2. Continue on Lantus plus sliding scale insulin. 10. Deep vein thrombosis prophylaxis. Continue on Lovenox. cc: Breanna Auguste MD
--- NOTE | 2018-10-07 18:52 | INFECTIOUS DISEASE PROGRESS NO ---
DATE: 10/07/2018 PRESENT ILLNESS: Mr. Umaña has a methicillin-resistant Staphylococcus aureus bacteremia, the origin of which may be his right lower extremity. He has had a previous ORIF done back on September 23 after proximal right tibia-fibula fracture. There is also a Klebsiella urinary tract infection; however, this is asymptomatic, and does not need treatment. MEDICATIONS: Today is day 2 of daptomycin 500 mg IV every 24 hours. PHYSICAL EXAMINATION: Vital Signs: Temperature is 97.9 degrees, pulse rate 95 respiratory rate 16, blood pressure 113/62, O2 saturation is 97% on room air. General: This is an elderly, confused gentleman. He is sitting up in bed, currently in no acute distress. HEENT: Atraumatic, normocephalic. Oral mucous membranes are pink and moist. Conjunctivae are pink. Neck: Supple. Trachea is midline. Respiratory: Lung sounds are clear and diminished bilaterally. Cardiovascular: Heart rate and rhythm are regular, 100% paced on the monitor with occasional ectopic beats. Pedal and radial pulses are +2 bilaterally. Abdomen: Soft, round, and nontender. Bowel sounds are active. Extremities: Right lower extremity dressing was removed, and there are john in place to the anterior calf with areas of mild erythema and edema noted. Neurologic: The patient is awake, alert, and oriented to person only. He does follow commands and is able to move extremities with generalized weakness. DIAGNOSTIC STUDIES: Today, his white count is 10.38, hemoglobin 10.5, platelet count is 320,000. Creatinine is 1, estimated GFR is greater than 60. He has 2 sets of blood cultures that have grown methicillin-resistant Staphylococcus aureus. No imaging reports today. ASSESSMENT AND PLAN: Mr. Umaña is being treated for methicillin-resistant Staphylococcus aureus bacteremia which may have originated from his open reduction, internal fixation after a previous tibia-fibula fracture on the right. There are john to his incision line, and I removed a dressing that has not been changed for about a week. We will go ahead and consult Dr. Arias in the morning for a possible right lower extremity infection. We will continue daptomycin as ordered , which he will need for a total of 8 weeks. The first day of treatment will be the first set of sterile blood cultures which we have yet to obtain. Blood cultures have been ordered to be drawn in the morning. These plans have been discussed with and recommended by Dr. Lane. Comorbidities for Mr. Umaña include he is elderly and confused, with diabetes mellitus, Parkinson's disease, and congestive heart failure. Dictated by KIMO Luis for Gonzalo Lane MD This chart was documented by, KIMO Luis and accurately reflects the services performed, treatment plan and medical decisions as attested by the providers signature Gonzalo Lane MD. cc: Gonzalo Lane MD [facility]
[2018-10-07] MEDS: CUBICIN 500 MG in NS 100 ML IV SCH (20:29)
[2018-10-07] MEDS: ELAVIL PO SCH (20:31)
[2018-10-07] MEDS: EFFEXOR PO SCH (20:31)
[2018-10-07] MEDS: COLACE PO SCH (20:32)
[2018-10-08] MEDS: ROBINUL PO SCH ×2 (00:13→20:47)
[2018-10-08] MEDS: HUMALOG SUBQ SCH ×4 (07:34→21:51)
[2018-10-08] MEDS: LOVENOX SUBQ SCH (07:38)
[2018-10-08] MEDS: SYNTHROID PO SCH (07:38)
[2018-10-08] MEDS: PROTONIX PO SCH (09:11)
[2018-10-08] MEDS: MIRALAX PO SCH (09:11)
[2018-10-08] MEDS: FLOMAX PO SCH ×2 (09:11→20:46)
[2018-10-08] MEDS: CENTRUM SILVER PO SCH (09:12)
[2018-10-08] MEDS: MIRAPEX PO SCH ×2 (09:12→20:45)
[2018-10-08] MEDS: MEGACE LIQUID PO SCH ×2 (09:12→20:46)
[2018-10-08] MEDS: ASPIRIN EC PO SCH (09:12)
[2018-10-08] MEDS: MS CONTIN PO SCH ×3 (09:12→20:46)
[2018-10-08] MEDS: FERROUS SULFATE PO SCH (09:12)
[2018-10-08] MEDS: LOPRESSOR PO SCH (09:12)
[2018-10-08] MEDS: ENTRESTO 24 MG-26 MG TABLET PO SCH ×2 (09:13→20:45)
[2018-10-08] MEDS: SINEMET 25/100 PO SCH ×4 (09:13→20:46)
[2018-10-08] MEDS: FISH OIL CONCENTRATE PO SCH (09:13)
[2018-10-08] MEDS: LASIX PO SCH (09:13)
[2018-10-08] MEDS: VITAMIN E PO SCH (09:14)
--- NOTE | 2018-10-08 12:14 | CONSULTATION ---
DATE OF CONSULTATION: 10/08/2018 CHIEF COMPLAINT: Right lower leg pain. HISTORY OF PRESENT ILLNESS: Mr. Umaña is an 83-year-old male, who on September 22, had an ORIF of his right proximal tibia fracture by Dr. Arias. He did well initially and was discharged to [facility] following his surgery. During his stay at [facility], he started to develop altered metal status and chills and he was brought to the emergency department where it was discovered that he had a bacteremia and a UTI. He was further admitted and he is being followed by Dr. Lane with Infectious Disease, and he has been receiving daptomycin IV. We are asked for further evaluation regarding right lower leg. PAST MEDICAL HISTORY, PAST SURGICAL HISTORY, ALLERGIES, MEDICATIONS: See the admission history and physical. REVIEW OF SYSTEMS: Positive for right lower leg pain. All others negative. PHYSICAL EXAMINATION: General: This is an elderly male. He is alert and cooperative with the examination. He is in no acute distress. Vital signs: Temperature is 97.9 degrees. His pulse is 105, respiratory rate of 18, blood pressure is 100/50, oxygen saturation is 95% on room. HEENT: Head is normocephalic, atraumatic. Neck: Supple. Respiratory: Breathing is nonlabored. Abdomen: Nondistended. Neurologic Neurologic: Sensation of his right lower extremity is intact. Musculoskeletal: Right lower leg, there appears to be an incision over the proximal tibia that is intact with sutures. There is some ecchymosis at the medial lower leg and there is also some mild erythema and edema at the lateral lower leg. These appear to be consistent with postoperative changes. He has good range of motion of his right knee. There is no fluctuance or drainage noted. ASSESSMENT: Post right open reduction and internal fixation of proximal tibia fracture with bacteremia. PLAN: We feel that this can be treated nonoperatively at this time and managed with IV antibiotics. We will continue to monitor him and we can remove the john at this time. We can consider removing the hardware later once the fracture is healed. Dictated by JESSICA Carlton for Deangelo Arias MD cc: JESSICA Carlton MD [facility]
--- NOTE | 2018-10-08 18:29 | INFECTIOUS DISEASE PROGRESS NO ---
DATE: 10/08/2018 PRESENT ILLNESS: Mr. Umaña is being treated for methicillin-resistant Staph aureus bacteremia, the origin of which may be his right lower extremity. He is status post open reduction, internal fixation of a right tib-fib fracture done on September 23. He also has a Klebsiella urinary tract infection which is asymptomatic. MEDICATIONS: Today is day 3 of daptomycin 500 mg IV every 24 hours. PHYSICAL EXAMINATION: Vital Signs: Temp is 98.1, pulse rate 96, respiratory rate 18, blood pressure 112/69. O2 sats 96% on room air. General: This is an elderly, chronically ill- appearing gentleman. He is lying in the bed, currently in no acute distress. HEENT: Atraumatic, normocephalic. Oral mucous membranes are pink and moist. Conjunctivae are pink. Neck: Supple. Trachea is midline. Cardiovascular: Heart rate and rhythm are regular, 100% paced on the monitor. He does have some occasional ectopic beats. Respiratory: Lung sounds are clear in the upper lobes, diminished in the mid and bases. Abdomen: Soft, round and nontender. Bowel sounds are active. Extremities: There is an incision line to the right anterior calf which has scattered bruising and some mild areas of erythema and edema noted, 1+. Neurologic: He is awake, alert and oriented to person only. Very pleasant, but confused and extremely short memory span. He does follow commands. There is generalized weakness. LABORATORY AND X-RAY: None today. ASSESSMENT AND PLAN: Mr. Umaña is being treated for methicillin-resistant Staph aureus bacteremia. The john have been removed from his right lower extremity wound and he is being followed by Orthopedics. As far as his infection is concerned, we will need to continue daptomycin daily for a total of 8 weeks from the first set of sterile blood cultures which we are still waiting for. Blood work was obtained this morning for blood cultures and hopefully those will be sterile. These plans have been discussed with and recommended by Dr. Lane. COMORBIDITIES: For Mr. Umaña include that he is elderly and confused, with diabetes mellitus, Parkinson's disease and congestive heart failure. Dictated by KIMO Luis for Gonzalo Lane MD This chart was documented by, KIMO Luis and accurately reflects the services performed, treatment plan and medical decisions as attested by the providers signature Gonzalo Lane MD. cc: Gonzalo Lane MD MTDD
[2018-10-08] MEDS: CUBICIN 500 MG in NS 100 ML IV SCH (20:45)
[2018-10-08] MEDS: ELAVIL PO SCH (20:45)
[2018-10-08] MEDS: EFFEXOR PO SCH (20:45)
[2018-10-08] MEDS: COLACE PO SCH (20:46)
--- NOTE | 2018-10-09 03:42 | PROGRESS NOTE ---
DATE: 10/08/2018 SUBJECTIVE: The patient is resting comfortably in bed. His is present at the bedside. He has not been eating. OBJECTIVE: Vital Signs: Temperature 98.1 degrees, blood pressure 112/69, heart rate 96, respirations 18, O2 saturation is 96% on room air. General: This is a chronically ill-appearing elderly male, lying in bed in no acute distress. Heart: S1, S2 normal. Regular rate and rhythm. Lungs: Clear to auscultation bilaterally. No wheezing. No rales. No rhonchi. Abdomen: Positive bowel sounds. Soft, nontender, nondistended. Extremities: No edema, no cyanosis. The incision on the patient's right leg is clean, dry, and intact. The john have been removed. Neurologic: The patient is alert and oriented x3. LABORATORY DATA: None. ASSESSMENT AND PLAN: 1. Bacteremia secondary to methicillin-resistant Staphylococcus aureus (MRSA). Continue on daptomycin. Repeat blood cultures were obtained today. 2. Chronic systolic congestive heart failure. Stable. The patient is on Lasix. 3. Chronic obstructive pulmonary disease. Continue on bronchodilator therapy. 4. Hypothyroidism. Continue on Synthroid. 5. Situational depression. Continue on Effexor. 6. Benign prostatic hypertrophy. Continue on Flomax. 7. Metabolic encephalopathy. Multifactorial. Monitor for improvement. 8. Diabetes mellitus, type 2. Continue on Lantus plus sliding scale insulin. 9. Deep vein thrombosis (DVT) prophylaxis. Continue on Lovenox. 10. Continue with physical therapy. cc: Breanna Auguste MD MTDD
[2018-10-09] MEDS: SYNTHROID PO SCH (06:39)
[2018-10-09] MEDS: LOVENOX SUBQ SCH (06:40)
[2018-10-09] MEDS: HUMALOG SUBQ SCH ×4 (06:40→20:51)
[2018-10-09 08:19] LABS: BASO# 0.03 X1000 (0.0-0.2); BASO% 0.3 % (0.0-0.8); EOS# 0.24 X1000 (0.0-0.7); EOS% 2.4 % (0.0-10.0); HEMATOCRIT 32.1 % (42.0-52.0); HEMOGLOBIN 10.4 g/dL (14.0-18.0); IMM GRAN# 0.03 X1000 (0.0-0.04); IMM GRAN% 0.3 % (0.0-0.5); LYMPH# 1.89 X1000 (1.2-3.4); LYMPH% 19.2 % (20.5-51.1); MCH 28.6 PG (27-31); MCHC 32.4 g/dL (33-37); MCV 88.2 FL (81-99); MONO# 0.68 X1000 (0.11-0.59); MONO% 6.9 % (1.7-9.3); MPV 9.7 FL (7.4-10.4); NEUT# 6.99 X1000 (1.4-6.5); NEUT% 70.9 % (42.2-75.2); PLT 439 X1000 (130-400); RBC 3.64 XMIL (4.7-6.1); RDW 12.8 % (11.5-14.5); WBC 9.86 X1000 (4.8-10.8)
[2018-10-09 08:30] LABS: AGAP 4; BUN 21 mg/dL (8-22); CALCIUM 9.3 mg/dL (8.8-10.2); CHLORIDE 98 mmol/L (98-107); COSMO 279; ESTIMATED GFR > 60; GLUCOSE 179 mg/dL (70-104); POTASSIUM 3.6 mmol/L (3.5-5.1); SODIUM 136 mmol/L (136-145); TCO2 34 mmol/L (25-35)
[2018-10-09] MEDS: ENTRESTO 24 MG-26 MG TABLET PO SCH ×2 (09:28→20:50)
[2018-10-09] MEDS: MIRALAX PO SCH (09:28)
[2018-10-09] MEDS: MS CONTIN PO SCH ×3 (09:28→20:51)
[2018-10-09] MEDS: MIRAPEX PO SCH ×2 (09:28→20:50)
[2018-10-09] MEDS: FISH OIL CONCENTRATE PO SCH (09:28)
[2018-10-09] MEDS: LOPRESSOR PO SCH (09:28)
[2018-10-09] MEDS: LASIX PO SCH (09:28)
[2018-10-09] MEDS: VITAMIN E PO SCH (09:28)
[2018-10-09] MEDS: MEGACE LIQUID PO SCH ×2 (09:29→20:50)
[2018-10-09] MEDS: CENTRUM SILVER PO SCH (09:29)
[2018-10-09] MEDS: ASPIRIN EC PO SCH (09:29)
[2018-10-09] MEDS: PROTONIX PO SCH (09:29)
[2018-10-09] MEDS: FERROUS SULFATE PO SCH (09:29)
[2018-10-09] MEDS: FLOMAX PO SCH ×2 (09:33→20:50)
[2018-10-09] MEDS: SINEMET 25/100 PO SCH ×4 (10:10→20:50)
--- NOTE | 2018-10-09 13:00 | PROGRESS NOTE ---
DATE: 10/09/2018 SUBJECTIVE: The patient is resting comfortably in bed. His is present at the bedside. The patient has not been eating well despite being started on Megace yesterday. OBJECTIVE: Vital Signs: Temperature 98.1 degrees, blood pressure 115/54, heart rate 99, respirations 18, O2 saturation is 98% on room air. General: This is a chronically ill-appearing, elderly male lying in bed, in no acute distress. Heart: S1, S2 normal. Regular rate and rhythm. Lungs: Equal air entry bilaterally. No crackles. No rales. Abdomen: Positive bowel sounds. Soft, nontender, nondistended. Extremities: No edema. No cyanosis. The incision on the right lower extremity is clean, dry, and intact. Neurologic: The patient is alert but has periods of confusion. He is able to move all 4 extremities. Labs: White blood cell count 9.8, hemoglobin 10, hematocrit 32, platelets 439, 000. Sodium 136, potassium 3.6, chloride 98, CO2 34, BUN 21, creatinine 1, glucose 179. ASSESSMENT AND PLAN: 1. Bacteremia secondary to methicillin-resistant Staphylococcus aureus. Continue with daptomycin. Continue to follow the repeat blood cultures. 2. Chronic systolic congestive heart failure. Stable. 3. Chronic obstructive pulmonary disease. Continue on bronchodilator therapy. 4. Hypothyroidism. Continue on Synthroid. 5. Severe protein calorie malnutrition. The patient is not eating despite being started on Megace. I discussed with the the possibility of placing a nasogastric tube for nutrition. She states that she will think about it. 6. Diabetes mellitus type 2. Continue on Lantus with sliding scale insulin. 7. Metabolic encephalopathy. Most likely secondary to the patient's underlying infection. We will continue to treat the underlying issue. 8. Benign prostatic hypertrophy. Continue on Flomax. 9. Deep vein thrombosis prophylaxis. Continue on Lovenox. 10. Continue with physical therapy. cc: Breanna Auguste MD [facility]
--- NOTE | 2018-10-09 19:16 | INFECTIOUS DISEASE PROGRESS NO ---
DATE: 10/09/2018 PRESENT ILLNESS: The patient is being treated for methicillin-resistant Staph aureus bacteremia. The exact origin is uncertain to me at this time. I think it is possible it could have come from his right leg that had surgery this year. Alternatively, it might have started somewhere else, but if it did, the right leg may be infected hematogenously. Also, I am concerned that the patient may have endocarditis if we cannot find an obvious site for the origin of the methicillin- resistant Staph aureus bacteremia. The patient also has a Klebsiella urinary tract infection which is asymptomatic. MEDICATIONS: The patient is on daptomycin 500 mg IV every 24 hours. Day 1 of daptomycin will be the first day that the patient's repeat blood cultures are sterile. PHYSICAL EXAMINATION: Vital Signs: Temperature is 98.2, pulse 95, respirations 22, blood pressure 108/57. General: This is an elderly, chronically ill-appearing male. He is in no acute distress. HEENT: He can hear my spoken words and see near objects. Neck: No meningismus. Lungs: Clear to auscultation. Cardiovascular: Heart rate is regular. Abdomen : Soft and nontender. Extremities: The patient's right leg has some erythematous and ecchymotic areas and there is some slight swelling which is tender. Neurologic: Patient is awake. He can move his extremities. He can carry on a coherent conversation. Thorax: Patient has a left side defibrillator in place. LAB AND X-RAY: Today the patient's CBC shows a white count of 9860, hemoglobin 10.4, and a platelet count of 439,000. The creatinine is 1.0. GFR is greater than 60. Repeat blood cultures are pending. ASSESSMENT AND PLAN: The patient has methicillin-resistant Staph aureus bacteremia which may have originated from his leg or could have infected the leg and his defibrillator hematogenously. My plan is to treat the patient for 8 weeks because the leg with it's metal in it and his defibrillator could be infected. Day 1 of treatment with daptomycin will be the first day that the repeat blood cultures are negative. Also, I have ordered an echocardiogram to be done at bedside for tomorrow. COMORBIDITIES: Patient is elderly. He also is a diabetic and he has Parkinson disease as well. cc: MD ARNAV Najera
[2018-10-09] MEDS: COLACE PO SCH (20:50)
[2018-10-09] MEDS: ROBINUL PO SCH (20:50)
[2018-10-09] MEDS: EFFEXOR PO SCH (20:50)
[2018-10-09] MEDS: CUBICIN 500 MG in NS 100 ML IV SCH (20:50)
[2018-10-09] MEDS: ELAVIL PO SCH (20:50)
[2018-10-10] MEDS: SYNTHROID PO SCH (06:12)
[2018-10-10] MEDS: LOVENOX SUBQ SCH (06:12)
[2018-10-10] MEDS: HUMALOG SUBQ SCH ×4 (06:12→22:00)
[2018-10-10 07:25] LABS: BASO# 0.04 X1000 (0.0-0.2); BASO% 0.4 % (0.0-0.8); EOS# 0.21 X1000 (0.0-0.7); HEMATOCRIT 32.7 % (42.0-52.0); HEMOGLOBIN 10.7 g/dL (14.0-18.0); IMM GRAN# 0.04 X1000 (0.0-0.04); IMM GRAN% 0.4 % (0.0-0.5); LYMPH# 1.96 X1000 (1.2-3.4); LYMPH% 18.8 % (20.5-51.1); MCH 28.9 PG (27-31); MCHC 32.7 g/dL (33-37); MCV 88.4 FL (81-99); MONO# 0.62 X1000 (0.11-0.59); MPV 9.7 FL (7.4-10.4); NEUT# 7.55 X1000 (1.4-6.5); NEUT% 72.4 % (42.2-75.2); PLT 394 X1000 (130-400); RDW 12.9 % (11.5-14.5); WBC 10.42 X1000 (4.8-10.8)
[2018-10-10 08:04] LABS: AGAP 13; BUN 22 mg/dL (8-22); CALCIUM 9.4 mg/dL (8.8-10.2); CHLORIDE 97 mmol/L (98-107); COSMO 283; CREATININE 1.1 mg/dL (0.7-1.2); ESTIMATED GFR > 60; GLUCOSE 276 mg/dL (70-104); POTASSIUM 3.9 mmol/L (3.5-5.1); SODIUM 135 mmol/L (136-145); TCO2 25 mmol/L (25-35)
[2018-10-10] MEDS ORDERED: NS 1,000 ML IV SCH (09:00)
--- NOTE | 2018-10-10 10:19 | Diag Imaging Result Doc PS360 ---
EXAM: CT HEAD W/O CONTRAST HISTORY: encephalopathy TECHNIQUE: CT head without contrast COMPARISON: 10/01/2018 FINDINGS: No parenchymal hemorrhage. No epidural or subdural hematoma. No subarachnoid hemorrhage. There is atrophy with chronic microvascular ischemic changes. No mass identified on this noncontrasted exam. No hydrocephalus. No sinus opacification. IMPRESSION: 1.No hemorrhage 2.Atrophy with chronic microvascular ischemic changes This exam was performed using automated exposure control, adjustment of mA or kV according to patient size, and/or use of iterative reconstruction technique. Electronically signed by Pollo Daly 10/10/2018 10:17 AM
[2018-10-10] MEDS: MIRAPEX PO SCH (10:30)
[2018-10-10] MEDS: MIRALAX PO SCH (10:30)
[2018-10-10] MEDS: ASPIRIN EC PO SCH (10:30)
[2018-10-10] MEDS: MEGACE LIQUID PO SCH ×2 (10:30→22:01)
[2018-10-10] MEDS: FLOMAX PO SCH ×2 (10:31→22:02)
[2018-10-10] MEDS: ENTRESTO 24 MG-26 MG TABLET PO SCH ×2 (10:31→22:01)
[2018-10-10] MEDS: SINEMET 25/100 PO SCH ×4 (10:31→22:04)
[2018-10-10] MEDS: CENTRUM SILVER PO SCH (10:31)
[2018-10-10] MEDS: FERROUS SULFATE PO SCH (10:31)
[2018-10-10] MEDS: PROTONIX PO SCH (10:31)
[2018-10-10] MEDS: FISH OIL CONCENTRATE PO SCH (10:31)
[2018-10-10] MEDS: LOPRESSOR PO SCH (10:31)
[2018-10-10] MEDS: VITAMIN E PO SCH (10:32)
[2018-10-10] MEDS: MS CONTIN PO SCH ×3 (10:36→22:01)
[2018-10-10] MEDS: CLINIMIX E 4.25%-5% SOLUTION 1,000 ML IV SCH (13:17)
--- NOTE | 2018-10-10 17:32 | PROGRESS NOTE ---
DATE: 10/10/2018 SUBJECTIVE: The patient is very weak and debilitated. His is present at the bedside and said that he has not been doing very well. He does drink Glucerna. OBJECTIVE: Vital Signs: Temperature 97.8, blood pressure 102/55, heart rate 101, respirations 17, O2 saturations 96% on room air. General: This is a chronically ill- appearing, elderly male, lying in bed in no acute distress. Heart: S1, S2 normal. Tachycardic. Lungs : Equal air entry bilaterally. No crackles. No rales. Abdomen: Positive bowel sounds. Soft, nontender, nondistended. Extremities: No edema. No cyanosis. Neurologic: The patient is awake, but confused. He is able to move all 4 extremities. LABS: White blood cell count 10, hemoglobin 10, hematocrit 32, platelets 394. Sodium 135, potassium 3.9, chloride 97, CO2 of 25, BUN 22, creatinine 1.1, glucose 276. Head CT shows no hemorrhage. Atrophy. ASSESSMENT AND PLAN: 1. Bacteremia secondary to methicillin-resistant Staphylococcus aureus. So far the repeat blood cultures remain negative. Continue on daptomycin as directed by Dr. Lane. 2. Chronic systolic congestive heart failure. Stable. 3. Chronic obstructive pulmonary disease. Continue with bronchodilator therapy. 4. Metabolic encephalopathy. This is likely secondary to the patient's underlying infection. Continue to treat the infection. 5. Severe protein calorie malnutrition. The patient did not tolerate having an NG tube placed. We will start Clinimix and monitor the patient closely. Continue with Glucerna with each meal. 6. Diabetes mellitus type 2. Continue on Lantus plus sliding scale insulin. 7. Benign prostatic hypertrophy. Continue on Flomax. 8. Deep vein thrombosis prophylaxis. Continue on Lovenox. 9. Continue with physical therapy. 10. Disposition. I had a discussion with the patient's and she stated that she wants to continue the current level of care. The patient is currently a Do Not Resuscitate level 1. cc: Breanna Auguste MD [facility]
--- NOTE | 2018-10-10 18:00 | ECHO REPORT ---
ORDER DATE: 10/10/2018 INDICATION: Possible endocarditis. FINDINGS: 1. Right atrium appears normal in size. 2. There is no significant tricuspid regurgitation. 3. Normal RV size and systolic function. 4. No significant pulmonic insufficiency. 5. Normal left atrial size. 6. No mitral valve prolapse. No significant mitral regurgitation. 7. Normal LV size. Suggestion of moderate left ventricular hypertrophy with a posterior and interventricular septal wall thickness of 1.5 cm each. Left ventricular end-diastolic dimension is 4.1 cm. Suggestion of normal LV systolic function, with an estimated EF greater 55%. [employer] echocontrast was used. This was a very difficult study with poor windows and off-axis views. 8. The aortic valve does not appear stenotic. There is no significant insufficiency. Poor 2- dimensional views. 9. The aorta appears somewhat dilated at the root with a dimension of 4 cm. 10. No pericardial effusion seen. 11. This was a difficult study with poor 2-dimensional views of the valves as well as poor Doppler evaluations. It was insufficient to definitively evaluate this patient for possible endocarditis. 12. Linear echodensity in the right heart chambers consistent with device leads. cc: MD Gonzalo Baker MD
--- NOTE | 2018-10-10 18:36 | CONSULTATION ---
DATE OF CONSULTATION: 10/10/2018 HISTORY OF PRESENT ILLNESS: Mr. Umaña is 83 years old and he has reported altered mental state and increased confusion. He is not able to provide valid history. He told me that he has been taking medicine for Parkinson disease for several months, but I think that is incorrect (I think he has taken these for longer). He is not able to report any recent medication changes to correlate with the onset of altered mentation. He reports no headache. He reports no history of diagnosed stroke, seizure or other neurologic event. Hospital record shows lab with blood sugars initially 100s, once 69, recently 200-300 range. There is anemia. Noncontrast CT showed atrophy and usual changes, no significant change compared to scans done on 09/27/2018 and 10/01/2018. He has been afebrile. Systolic blood pressures have ranged 90s-110s over the last few days. PAST MEDICAL HISTORY: Chart shows reported past medical history including Parkinson disease, colon cancer, diabetes mellitus, hypertension, congestive heart failure, dyslipidemia, and recent right tibial ORIF. He was admitted on 10/01/2018 and there is evidence of MRSA bacteremia. MEDICATIONS: The hospital chart shows 23 medication entries on the preadmission list (I think this was in a rehab facility). Potential [employer] active meds include: 1. Carbidopa/levodopa 25/100 q.i.d. 2. Pramipexole 0.25 mg b.i.d. 3. Amitriptyline 100 mg at bedtime. 4. Venlafaxine 75 mg daily. 5. MS Contin 15 mg t.i.d. scheduled, and many others. PHYSICAL EXAMINATION: On exam, he initially appeared to be sleeping peacefully. With moderate stimulation, he was awake, briefly alert and attentive, and then quickly back to sleep when not stimulated. Speech is low volume, feeble, parkinsonian. I can understand most of what he says. Language function is intact on brief bedside testing. He was not attentive long enough for me to test cognitive function thoroughly. He did not identify this hospital, name the President nor tell me the date. Head is unremarkable. Neck shows increased tone consistent with his limb tone, not typical of meningismus. He has full lateral eye movement and limited upgaze , typical of parkinsonism and age. Facial motility is diminished bilaterally, but symmetric. Tongue is midline. Tone is increased throughout. There is some cogwheeling in the arms. When he was fully awake, I did not see definite resting tremor and there was no tremor while he was sleeping. I did not test his right leg vigorously. He has good power in the left leg. Plantar response is extensor bilaterally. IMPRESSION: 1. Global encephalopathy, uncertain etiology. I do not know his baseline cognitive state, but I suspect he may have a cognitive impairment syndrome at baseline. That would predispose him to more prominent features of encephalopathy with any toxic/metabolic disturbance. 2. Parkinsonism, possibly idiopathic Parkinson disease. I do not know details of prior diagnosis and whether or not he was showing significant response to his antiparkinsonian medicine regimen. 3. Polypharmacy. RECOMMENDATIONS: I do not have any urgent suggestion. While he is hospitalized , we might reduce the dopaminergic medicines. I do not know if he has had any adverse effects with this regimen prior to admission. There may be adverse anticholinergic effect on cognitive function with amitriptyline. I am not sure how long he has been taking that. Certainly, he might not need the morphine dose while he is sleeping. Other than reducing medicines as possible, I do not have any suggestion. Depending on his clinical course, we might need further imaging and might need to make further adjustment in the Parkinson regimen. I see that pramipexole and Sinemet have been continued at the preadmission doses. I will stop pramipexole today. Depending on his clinical course, Sinemet dose can be reduced, at least dose can be held if he is sleeping. Neurology will be back on rounds Saturday. Thanks for asking us to see Mr. Umaña. cc: MD ARNAV Ospina III
--- NOTE | 2018-10-10 21:44 | INFECTIOUS DISEASE PROGRESS NO ---
DATE: 10/10/2018 PRESENT ILLNESS: The patient has a methicillin-resistant Staph aureus bacteremia the exact origin of which is uncertain to me. It could have come from the patient's right leg, which surgery was performed and metal was used to treat a fracture in the leg. Alternatively, there could have been another source of methicillin-resistant Staph aureus bacteremia and then it possibly could hematogenously infect the leg. MEDICATIONS: The patient is on daptomycin 500 mg daily, this is day 2 of treatment with daptomycin. He was actually started on daptomycin 5 days ago but day 1 of treatment is the first day that the patient's blood cultures become negative and that occurred 2 days ago therefore the daptomycin is being used now for 2 days. PHYSICAL EXAMINATION: Vital Signs: Temperature is 98.1 degrees, pulse 97, respirations 18, blood pressure 110/59. General: This is a chronically ill-appearing elderly male. He is in no acute distress. Head, eyes, ears, nose, and throat: He can hear my spoken words and see near objects. He does not have any white patches on his tongue. Neck: No stiffness. Lungs: Clear to auscultation. Cardiovascular: Heart rate is regular. Abdomen: Soft and nontender. Extremities: The right leg is slightly swollen and ecchymotic. The incision is intact. There is no purulence or erythema. Neurologic: The patient is alert. He can carry on a conversation. He can move his extremities. LAB AND X-RAY: CT scan of the head showed atrophy and chronic microvascular ischemic changes. CBC shows a white count of 10,420, hemoglobin 10.7, and platelet count 394,000. Creatinine is 1.1. GFR is greater than 60. An echocardiogram was done. However, it was not of good enough quality that a good view of the heart valves could be obtained. The patient's repeat blood cultures are sterile. ASSESSMENT AND PLAN: I plan to continue treating the patient with daptomycin for a total of 8 weeks and the patient has had 2 days of treatment with daptomycin with day 1 being the first day that the patient's repeat blood cultures are sterile, which was 2 days ago. As regarding getting a transesophageal echocardiogram, I do not think it is necessary. I am going to be treating the patient for 8 weeks just by virtue of his having the bacteremia and metal in the patient's leg which could have become infected hematogenously. Also, I do not think the patient would be a candidate for surgery if we did find that he had endocarditis. COMORBIDITIES: The patient is elderly and confused. He is a diabetic and has Parkinson disease and congestive heart failure. cc: Gonzalo Lane MD
[2018-10-10] MEDS: CUBICIN 500 MG in NS 100 ML IV SCH (22:00)
[2018-10-10] MEDS: EFFEXOR PO SCH (22:01)
[2018-10-10] MEDS: ELAVIL PO SCH (22:02)
[2018-10-10] MEDS: COLACE PO SCH (22:02)
[2018-10-10] MEDS: ROBINUL PO SCH (22:04)
[2018-10-11] MEDS: CLINIMIX E 4.25%-5% SOLUTION 1,000 ML IV SCH ×2 (03:02→16:57)
[2018-10-11] MEDS: LOVENOX SUBQ SCH (06:22)
[2018-10-11] MEDS: SYNTHROID PO SCH (06:22)
[2018-10-11] MEDS: HUMALOG SUBQ SCH ×4 (06:23→23:32)
[2018-10-11 07:38] LABS: BASO# 0.02 X1000 (0.0-0.2); BASO% 0.2 % (0.0-0.8); EOS# 0.33 X1000 (0.0-0.7); EOS% 2.8 % (0.0-10.0); HEMATOCRIT 31.6 % (42.0-52.0); IMM GRAN# 0.03 X1000 (0.0-0.04); IMM GRAN% 0.3 % (0.0-0.5); LYMPH# 1.66 X1000 (1.2-3.4); LYMPH% 14.1 % (20.5-51.1); MCH 28.1 PG (27-31); MCHC 31.6 g/dL (33-37); MCV 88.8 FL (81-99); MONO# 0.53 X1000 (0.11-0.59); MONO% 4.5 % (1.7-9.3); MPV 9.5 FL (7.4-10.4); NEUT# 9.17 X1000 (1.4-6.5); NEUT% 78.1 % (42.2-75.2); PLT 400 X1000 (130-400); RBC 3.56 XMIL (4.7-6.1); RDW 12.8 % (11.5-14.5); WBC 11.74 X1000 (4.8-10.8)
[2018-10-11 07:59] LABS: AGAP 11; BUN 24 mg/dL (8-22); CHLORIDE 98 mmol/L (98-107); COSMO 290; CREATININE 0.9 mg/dL (0.7-1.2); ESTIMATED GFR > 60; GLUCOSE 351 mg/dL (70-104); POTASSIUM 4.1 mmol/L (3.5-5.1); SODIUM 136 mmol/L (136-145); TCO2 27 mmol/L (25-35)
[2018-10-11] MEDS: MEGACE LIQUID PO SCH ×2 (08:48→23:33)
[2018-10-11] MEDS: ENTRESTO 24 MG-26 MG TABLET PO SCH ×2 (08:48→23:33)
[2018-10-11] MEDS: MS CONTIN PO SCH ×3 (08:48→21:22)
[2018-10-11] MEDS: CENTRUM SILVER PO SCH (08:48)
[2018-10-11] MEDS: FISH OIL CONCENTRATE PO SCH (08:48)
[2018-10-11] MEDS: FERROUS SULFATE PO SCH (08:48)
[2018-10-11] MEDS: ASPIRIN EC PO SCH (08:48)
[2018-10-11] MEDS: FLOMAX PO SCH ×2 (08:49→23:34)
[2018-10-11] MEDS: SINEMET 25/100 PO SCH ×4 (08:49→23:34)
[2018-10-11] MEDS: PROTONIX PO SCH (08:49)
[2018-10-11] MEDS: MIRALAX PO SCH (08:49)
[2018-10-11] MEDS: VITAMIN E PO SCH (08:49)
[2018-10-11] MEDS: LOPRESSOR PO SCH (08:49)
--- NOTE | 2018-10-11 15:27 | PROGRESS NOTE ---
DATE: 10/11/2018 SUBJECTIVE: The patient is resting comfortably in bed. No acute events noted overnight. OBJECTIVE: Vital Signs: Temperature 97.5 degrees, blood pressure 103/56, heart rate 70, respirations 18, O2 saturation 96% on room air. General: This is an elderly male lying in bed in no acute distress. Heart: S1, S2 normal. Regular rate and rhythm. Lungs: Clear to auscultation bilaterally. Abdomen: Positive bowel sounds. Soft, nontender, nondistended. Extremities: No edema, no cyanosis. Neurologic: The patient is awake and alert. LABS: White blood cell count 11, hemoglobin 10, hematocrit 31, platelets 100,000. Sodium 136, potassium 4.1, chloride 98, CO2 27, BUN 24, creatinine 0.9, glucose 351. ASSESSMENT AND PLAN: 1. Bacteremia secondary to methicillin-resistant Staphylococcus aureus. Continue with daptomycin. 2. Chronic systolic congestive heart failure. Stable. 3. Chronic obstructive pulmonary disease. Continue bronchodilator therapy. 4. Severe protein calorie malnutrition. Continue on Clinimix. 5. Diabetes mellitus type 2. Continue on Lantus and sliding scale insulin. 6. Benign prostatic hypertrophy. Continue on Flomax. 7. Metabolic encephalopathy. Unchanged. Continue to monitor for improvement. cc: Breanna Auguste MD
[2018-10-11] MEDS: CUBICIN 500 MG in NS 100 ML IV SCH (19:36)
[2018-10-11] MEDS: BASAGLAR SUBQ SCH (23:31)
[2018-10-11] MEDS: COLACE PO SCH (23:33)
[2018-10-11] MEDS: EFFEXOR PO SCH (23:33)
[2018-10-11] MEDS: ROBINUL PO SCH (23:33)
[2018-10-11] MEDS: ELAVIL PO SCH (23:55)
[2018-10-12] MEDS: CLINIMIX E 4.25%-5% SOLUTION 1,000 ML IV SCH (04:42)
[2018-10-12] MEDS: LOVENOX SUBQ SCH (06:22)
[2018-10-12] MEDS: SYNTHROID PO SCH (06:22)
[2018-10-12] MEDS: HUMALOG SUBQ SCH ×5 (07:02→20:43)
[2018-10-12 07:51] LABS: BASO# 0.05 X1000 (0.0-0.2); BASO% 0.4 % (0.0-0.8); EOS# 0.35 X1000 (0.0-0.7); EOS% 2.7 % (0.0-10.0); HEMATOCRIT 36.6 % (42.0-52.0); HEMOGLOBIN 11.7 g/dL (14.0-18.0); IMM GRAN# 0.05 X1000 (0.0-0.04); IMM GRAN% 0.4 % (0.0-0.5); LYMPH# 2.22 X1000 (1.2-3.4); LYMPH% 16.9 % (20.5-51.1); MCH 28.5 PG (27-31); MCV 89.3 FL (81-99); MONO# 0.63 X1000 (0.11-0.59); MONO% 4.8 % (1.7-9.3); NEUT# 9.87 X1000 (1.4-6.5); NEUT% 74.8 % (42.2-75.2); PLT 367 X1000 (130-400); WBC 13.17 X1000 (4.8-10.8)
[2018-10-12] MEDS: MS CONTIN PO SCH ×3 (08:51→20:43)
[2018-10-12] MEDS: PROTONIX PO SCH (08:52)
[2018-10-12] MEDS: LOPRESSOR PO SCH (08:52)
[2018-10-12] MEDS: SINEMET 25/100 PO SCH ×4 (08:52→20:42)
[2018-10-12] MEDS: ENTRESTO 24 MG-26 MG TABLET PO SCH ×2 (08:52→20:42)
[2018-10-12] MEDS: MEGACE LIQUID PO SCH ×2 (08:52→20:42)
[2018-10-12] MEDS: CENTRUM SILVER PO SCH (08:52)
[2018-10-12] MEDS: FLOMAX PO SCH ×2 (08:52→20:42)
[2018-10-12] MEDS: FISH OIL CONCENTRATE PO SCH (08:53)
[2018-10-12] MEDS: ASPIRIN EC PO SCH (08:53)
[2018-10-12] MEDS: BASAGLAR SUBQ SCH ×2 (08:53→20:43)
[2018-10-12] MEDS: MIRALAX PO SCH (08:53)
[2018-10-12] MEDS: VITAMIN E PO SCH (08:53)
[2018-10-12] MEDS: FERROUS SULFATE PO SCH (08:53)
[2018-10-12 09:21] LABS: AGAP 11; BUN 24 mg/dL (8-22); CALCIUM 9.2 mg/dL (8.8-10.2); CHLORIDE 94 mmol/L (98-107); CK TOTAL 138 U/L (24-204); COSMO 279; ESTIMATED GFR > 60; GLUCOSE 292 mg/dL (70-104); POTASSIUM 4.3 mmol/L (3.5-5.1); SODIUM 132 mmol/L (136-145); TCO2 27 mmol/L (25-35)
--- NOTE | 2018-10-12 18:16 | PROGRESS NOTE ---
DATE: 10/12/2018 SUBJECTIVE: The patient is resting comfortably in bed. No acute events noted overnight. OBJECTIVE: Vital Signs: Temperature 98.2 degrees, blood pressure 94/80, heart rate 90, respirations 22, oxygen saturation 97% on room air. General: This is an elderly male, lying in bed, in no acute distress. Heart: S1, S2 normal. Regular rate and rhythm. Lungs: Equal air entry bilaterally. No crackles. No rales. Abdomen: Positive bowel sounds. Soft, nontender, nondistended. Extremities: No edema. No cyanosis. Neurologic: The patient is awake and alert. He is able to move all 4 extremities. LABS: White blood cell count 13, hemoglobin 11, hematocrit 36, platelets 367,000. Sodium 132, potassium 4.3, chloride 94, CO2 27, BUN 24, creatinine 1, glucose 292. ASSESSMENT AND PLAN: 1. Bacteremia, secondary to methicillin-resistant Staphylococcus aureus. Continue on daptomycin. 2. Uncontrolled insulin-dependent diabetes mellitus. We will increase the glargine to 25 units subcutaneous twice a day, and change the patient to a moderate dose sliding scale. 3. Chronic systolic congestive heart failure. Stable. 4. Chronic obstructive pulmonary disease. Continue on bronchodilator therapy. 5. Severe protein calorie malnutrition. We will discontinue the Clinimix since the patient is eating more. Continue on Megace. 6. Benign prostatic hypertrophy. Continue on Flomax. 7. Metabolic encephalopathy. Improved. 8. Deep vein thrombosis prophylaxis. Continue on Lovenox. 9. Disposition. The patient will be discharged home with home health once cleared by Dr. Lane. cc: Breanna Auguste MD
[2018-10-12] MEDS: ELAVIL PO SCH (20:42)
[2018-10-12] MEDS: EFFEXOR PO SCH (20:42)
[2018-10-12] MEDS: ROBINUL PO SCH (20:42)
[2018-10-12] MEDS: COLACE PO SCH (20:42)
[2018-10-12] MEDS: CUBICIN 500 MG in NS 100 ML IV SCH (20:44)
[2018-10-13] MEDS: SYNTHROID PO SCH (06:01)
[2018-10-13] MEDS: LOVENOX SUBQ SCH (06:01)
[2018-10-13] MEDS: HUMALOG SUBQ SCH ×4 (06:19→23:19)
[2018-10-13 07:23] LABS: BASO# 0.04 X1000 (0.0-0.2); BASO% 0.3 % (0.0-0.8); EOS# 0.31 X1000 (0.0-0.7); EOS% 2.6 % (0.0-10.0); HEMATOCRIT 35.5 % (42.0-52.0); HEMOGLOBIN 11.4 g/dL (14.0-18.0); IMM GRAN# 0.03 X1000 (0.0-0.04); IMM GRAN% 0.3 % (0.0-0.5); LYMPH# 2.92 X1000 (1.2-3.4); LYMPH% 24.7 % (20.5-51.1); MCH 28.4 PG (27-31); MCHC 32.1 g/dL (33-37); MCV 88.5 FL (81-99); MONO% 5.9 % (1.7-9.3); MPV 9.6 FL (7.4-10.4); NEUT# 7.81 X1000 (1.4-6.5); NEUT% 66.2 % (42.2-75.2); PLT 392 X1000 (130-400); RBC 4.01 XMIL (4.7-6.1); RDW 12.9 % (11.5-14.5); WBC 11.81 X1000 (4.8-10.8)
[2018-10-13 07:52] LABS: AGAP 11; BUN 23 mg/dL (8-22); CALCIUM 9.5 mg/dL (8.8-10.2); CHLORIDE 100 mmol/L (98-107); COSMO 280; ESTIMATED GFR > 60; GLUCOSE 181 mg/dL (70-104); POTASSIUM 4.8 mmol/L (3.5-5.1); SODIUM 136 mmol/L (136-145); TCO2 25 mmol/L (25-35)
[2018-10-13] MEDS: CENTRUM SILVER PO SCH (08:19)
[2018-10-13] MEDS: FERROUS SULFATE PO SCH (08:19)
[2018-10-13] MEDS: ASPIRIN EC PO SCH (08:19)
[2018-10-13] MEDS: ENTRESTO 24 MG-26 MG TABLET PO SCH ×2 (08:19→20:56)
[2018-10-13] MEDS: FLOMAX PO SCH ×2 (08:19→20:56)
[2018-10-13] MEDS: MEGACE LIQUID PO SCH ×2 (08:19→20:56)
[2018-10-13] MEDS: MS CONTIN PO SCH ×3 (08:19→20:55)
[2018-10-13] MEDS: SINEMET 25/100 PO SCH ×4 (08:19→20:56)
[2018-10-13] MEDS: LOPRESSOR PO SCH (08:19)
[2018-10-13] MEDS: VITAMIN E PO SCH (08:19)
[2018-10-13] MEDS: PROTONIX PO SCH (08:19)
[2018-10-13] MEDS: MIRALAX PO SCH (08:20)
[2018-10-13] MEDS: BASAGLAR SUBQ SCH ×2 (08:20→20:56)
[2018-10-13] MEDS: FISH OIL CONCENTRATE PO SCH (08:20)
--- NOTE | 2018-10-13 09:57 | PROGRESS NOTE ---
DATE: 10/13/2018 Mr. Umaña is much brighter today. He reports he feels a lot better than on admission. He does not recall details of hospital admission. After I saw him Saturday, I had a lengthy conversation with his by phone. She reports initial parkinsonian features present about 3-1/2 years or so ago. Diagnosis was made about 2-1/2 years ago and he started Sinemet then. There was initial significant benefit. Pramipexole was added about a year ago and may have helped a little bit. Still, in recent months, does not notice significant benefit dose by dose. She cannot tell if he misses a dose or is late with a dose as far as his parkinsonian features go. has noticed forgetfulness for at least 6 or 12 months, gradually getting worse. He has not had cholinesterase inhibitor or a memantine trial. reports no history of diagnosed stroke or serious head injury. He has bumped his head a few times with recent falls, but never with altered consciousness. He has not used ethanol. reports he had been taking amitriptyline 50 mg b.i.d. for a few years or longer. That was stopped for about a month and he had trouble sleeping. Amitriptyline was resumed at a dose of 100 mg at bedtime, a few weeks before this admission, according to . Venlafaxine was added a few years ago. On exam today, he is awake, alert, attentive, oriented. Speech is much stronger than when I saw him on Saturday. There is still no resting tremor. Tone is less prominent in the limbs today than on Saturday with much less cogwheeling. I did not test his gait. IMPRESSION: Parkinsonism with question of idiopathic Parkinson's disease. PLAN: We stopped pramipexole, continued carbidopa/levodopa 25/100 four times a day through the weekend. He reports he feels better now than he has in some time. I would continue the current Sinemet dose while he appears to be stable and improving, continue physical therapy and hope to get him ready for rehab assignment and then follow up with his treating neurologist, Dr. Florentino, in [place]. Thanks for asking neurology to see him here. cc: MD ARNAV Ospina III
[2018-10-13] MEDS: EFFEXOR PO SCH (20:56)
[2018-10-13] MEDS: ELAVIL PO SCH (20:56)
[2018-10-13] MEDS: CUBICIN 500 MG in NS 100 ML IV SCH (20:56)
[2018-10-13] MEDS: ROBINUL PO SCH (20:56)
--- NOTE | 2018-10-13 20:59 | PROGRESS NOTE ---
DATE: 10/13/2018 SUBJECTIVE: The patient is resting comfortably in bed. No acute events noted overnight. OBJECTIVE: Vital Signs: Temperature 98.4, blood pressure 96/51, heart rate 90 , respirations 20, O2 saturation 98% on room air. General: This is an elderly male, lying in bed in no acute distress. Heart: S1, S2 normal. Regular rate and rhythm. Lungs: Equal air entry bilaterally. No crackles. No rales. Abdomen: Positive bowel sounds. Soft, nontender, nondistended. Extremities: No edema, no cyanosis. Neurologic: The patient is alert and oriented x3. LABS: White blood cell count 11, hemoglobin 11, hematocrit 35, platelets 392. Sodium 136, potassium 4.8, chloride 100, CO2 of 25, BUN 23, creatinine 1, glucose 181. ASSESSMENT AND PLAN: 1. Bacteremia secondary to methicillin-resistant Staphylococcus aureus. Continue on daptomycin. Dr. Lane has put in a consult for home antibiotics to be arranged. If this can be done, the patient should be able to be discharged home on Saturday. 2. Parkinson disease. Continue on carbidopa levodopa. 3. Insulin-dependent diabetes mellitus. Continue on glargine plus sliding scale insulin. 4. Chronic systolic congestive heart failure. Continue on Entresto. Stable. 5. Chronic obstructive pulmonary disease. Stable. Continue on bronchodilator therapy. 6. Severe protein calorie malnutrition. Continue on Megace and meal supplements. 7. Benign prostatic hypertrophy. Continue on Flomax. 8. Metabolic encephalopathy. Resolved. 9. Deep vein thrombosis prophylaxis. The patient is on Lovenox. 10. Disposition. The patient should be stable for discharge home tomorrow once the home antibiotics have been arranged. The patient is scheduled to have a PICC line placed tomorrow. cc: Breanna Auguste MD MTDD
[2018-10-13] MEDS: COLACE PO SCH (23:19)
[2018-10-14] MEDS: LOVENOX SUBQ SCH (06:24)
[2018-10-14] MEDS: HUMALOG SUBQ SCH ×3 (06:24→16:27)
[2018-10-14] MEDS: SYNTHROID PO SCH (06:30)
[2018-10-14 08:14] LABS: BASO# 0.05 X1000 (0.0-0.2); BASO% 0.4 % (0.0-0.8); EOS# 0.32 X1000 (0.0-0.7); EOS% 2.6 % (0.0-10.0); HEMATOCRIT 34.3 % (42.0-52.0); HEMOGLOBIN 10.9 g/dL (14.0-18.0); IMM GRAN# 0.04 X1000 (0.0-0.04); IMM GRAN% 0.3 % (0.0-0.5); LYMPH# 2.86 X1000 (1.2-3.4); LYMPH% 23.2 % (20.5-51.1); MCH 28.2 PG (27-31); MCHC 31.8 g/dL (33-37); MCV 88.6 FL (81-99); MONO% 5.7 % (1.7-9.3); MPV 9.5 FL (7.4-10.4); NEUT# 8.37 X1000 (1.4-6.5); NEUT% 67.8 % (42.2-75.2); PLT 394 X1000 (130-400); RBC 3.87 XMIL (4.7-6.1); RDW 12.9 % (11.5-14.5); WBC 12.34 X1000 (4.8-10.8)
[2018-10-14 08:17] LABS: INR 1.04; PROTIME 14.4 Seconds (11.0-16.0)
[2018-10-14 08:31] LABS: AGAP 12; BUN 20 mg/dL (8-22); CALCIUM 9.5 mg/dL (8.8-10.2); CHLORIDE 100 mmol/L (98-107); COSMO 277; ESTIMATED GFR > 60; GLUCOSE 168 mg/dL (70-104); POTASSIUM 4.5 mmol/L (3.5-5.1); SODIUM 135 mmol/L (136-145); TCO2 23 mmol/L (25-35)
[2018-10-14] MEDS: FERROUS SULFATE PO SCH (08:34)
[2018-10-14] MEDS: FISH OIL CONCENTRATE PO SCH (08:34)
[2018-10-14] MEDS: ENTRESTO 24 MG-26 MG TABLET PO SCH (08:35)
[2018-10-14] MEDS: VITAMIN E PO SCH (08:35)
[2018-10-14] MEDS: MEGACE LIQUID PO SCH (08:35)
[2018-10-14] MEDS: SINEMET 25/100 PO SCH ×2 (08:35→13:55)
[2018-10-14] MEDS: FLOMAX PO SCH (08:35)
[2018-10-14] MEDS: MS CONTIN PO SCH ×2 (08:35→13:55)
[2018-10-14] MEDS: LOPRESSOR PO SCH (08:35)
[2018-10-14] MEDS: ASPIRIN EC PO SCH (08:36)
[2018-10-14] MEDS: PROTONIX PO SCH (08:36)
[2018-10-14] MEDS: CENTRUM SILVER PO SCH (08:36)
[2018-10-14] MEDS: BASAGLAR SUBQ SCH (08:36)
[2018-10-14] MEDS: MIRALAX PO SCH (08:36)
[2018-10-14] MEDS ORDERED: NS 250 ML ONE (08:59)
[2018-10-14 16:50] VITALS: BP 120/62
--- NOTE | 2018-10-15 11:47 | DISCHARGE SUMMARY ---
ADMISSION DATE: 10/01/2018 DISCHARGE DATE: 10/14/2018 PRINCIPAL DIAGNOSIS: Acute delirium which is now improved. SECONDARY DIAGNOSES: 1. Methicillin-resistant Staphylococcus aureus bacteremia. 2. Urinary tract infection secondary to Klebsiella pneumoniae. 3. Type 2 diabetes mellitus. 4. Hypertension. 5. Parkinson disease. 6. History of congestive heart failure. 7. Hypothyroidism. 8. Chronic obstructive pulmonary disease. 9. Benign prostatic hypertrophy. 10. Severe protein calorie malnutrition. DISCHARGE MEDICATIONS: Include the followin. IV daptomycin, dose and duration to be determined by Infectious Disease. 2. Basaglar 25 units subcutaneous twice a day. 3. Megace 200 mg p.o. twice a day. 4. Sinemet 25/100 one 4 times a day. 5. Fish oil 1 daily. 6. Entresto / one twice a day. 7. Lasix 40 mg p.o. daily. 8. Robinul 1 mg in the evening. 9. Effexor 75 mg in the evenings. 10. Atorvastatin 20 mg p.o. in the evenings. 11. Pantoprazole 40 mg p.o. daily. 12. Polyethylene glycol 17 grams once a day. 13. Multivitamin, Centrum Silver 1 daily. 14. Vitamin E mixed 1 capsule daily. 15. Insulin lispro 30 units subcutaneous 3 times a day. 16. Metoprolol 25 mg p.o. daily. 17. Levothyroxine 25 mcg p.o. daily. 18. Aspirin 81 mg p.o. daily. 19. Elavil 100 mg p.o. daily. 20. Colace 100 mg in the evening. 21. Ferrous sulfate 325 p.o. daily. 22. Flomax 0.4 mg p.o. twice a day. 23. MS Contin 50 mg p.o. 3 times a day. CONSULTATIONS DONE DURING THIS HOSPITAL STAY: 1. Dr. Gonzalo Lane, Infectious Disease. 2. Dr. Arias, Orthopedics. 3. Dr. Kline, Neurology. SPECIAL PROCEDURES DONE DURING THIS HOSPITAL STAY: 1. CT scan of the head 10/01/2018. 2. CT scan of the head 10/10/2018. HOSPITAL COURSE: Mr. Luis Fernando Umaña is an 83-year-old male who has a history of multiple medical problems including Parkinson disease, skin cancer of the skull, colon cancer, diabetes mellitus type 2, hypertension, CHF. Recently had open reduction as well as internal fixation of the tibia and was sent to [facility] rehab. Prior to admission, the patient developed fever as well as altered mental status. He was found to be tachycardic and his laboratory data confirmed possible urinary tract infection. The patient's urine culture grew Klebsiella, and blood cultures grew MRSA. Dr. Gonzalo Lane did manage patient's antibiotics. Orthopedics was consulted since patient had a recent open reduction with internal fixation of his right proximal tibia fracture. There was concern that the MRSA could be coming from that recent surgical procedure. The patient seemed to have done well. The patient was seen by Neurology during the course of the hospital stay, had some of his anti parkinson's medications adjusted. Infectious Disease plans to give the patient his daptomycin for a total of 8 weeks. DISCHARGE PHYSICAL EXAMINATION: Vital signs: During my evaluation today, his vital signs were as follows. Temperature 98.2 degrees, pulse 100, respiratory rate is 20, blood pressure is 118/65, oxygen saturation is 99%. HEENT: Atraumatic, normocephalic. Cardiovascular: S1, S2. Respiratory system: Has evidence of good air entry bilaterally. Abdomen: Soft , nontender. No masses felt. Extremities: No significant edema in the lower extremities. Central nervous system: The patient is awake. LABORATORY DATA: WBC is 12.34, hematocrit is 34.3, platelet count 394,000. Sodium is 135, potassium 4.5, chloride 100, bicarb 23, BUN is 20, creatinine 1.0. PLAN: Discharge home today and the patient will continue antibiotics to be administered at home. This has already been set up by the Infectious Disease team. The patient will also need to follow up with his primary care physician, Dr. Dez Galicia. Also follow up with Dr. Gonzalo Lane in the outpatient. cc: Rohan Carpenter MD [facility]
== END 2018-10-14 18:14 | disposition home health service (06) | DRG 862 ==
LOC: ED 17:41 → EDIPHOLD 22:17 → SUATTDRO 22:17 → 3S 23:40 → 4N 10-02 13:43 → 3N 10-03 10:37
PROVIDERS: ATTEND Internal Medicine
CPT/HCPCS: 36569; 51702; 70450; 71010; 71045; 80048; 80053; 81001; 82040; 82550; 82553; 82948; 83036; 83605; 83735; 84100; 84134; 84443; 84484; 85025; 85610; 85730; 87040; 87077; 87088; 87186; 87275; 87276; 87804; 93005; 93306; 96361; 96365; 96375; 97110; 97162; 97530; 99285; A9270; C8929; J0692; J0696; J0712; J0878; J1650; J1815; J2543; J3370; J3480; J7030; J7040; J7050; Q9957; S0179; XXXXX

== ENCOUNTER 2018-10-20 13:47 | Inpatient (IN) ==
[2018-10-20] MEDS ORDERED: NS 1,000 ML ONE (13:57)
[2018-10-20] MEDS ORDERED: NS 1,000 ML IV ONE (14:11)
[2018-10-20 14:21] LABS: BASO# 0.04 X1000 (0.0-0.2); BASO% 0.3 % (0.0-0.8); EOS# 0.57 X1000 (0.0-0.7); EOS% 4.1 % (0.0-10.0); HEMATOCRIT 32.2 % (42.0-52.0); HEMOGLOBIN 10.2 g/dL (14.0-18.0); IMM GRAN# 0.04 X1000 (0.0-0.04); IMM GRAN% 0.3 % (0.0-0.5); LYMPH# 3.26 X1000 (1.2-3.4); LYMPH% 23.7 % (20.5-51.1); MCH 27.6 PG (27-31); MCHC 31.7 g/dL (33-37); MCV 87.3 FL (81-99); MONO# 1.04 X1000 (0.11-0.59); MONO% 7.6 % (1.7-9.3); PLT 363 X1000 (130-400); RBC 3.69 XMIL (4.7-6.1); WBC 13.75 X1000 (4.8-10.8)
--- NOTE | 2018-10-20 14:24 | EKG Report ---
Test Performed on : 10/20/2018 2:02:34 PM Test Reason : weakness Blood Pressure : / mmHG Vent. Rate : 097 BPM Atrial Rate : 096 BPM P-R Int : 204 ms QRS Dur : 164 ms QT Int : 442 ms P-R-T Axes : -62 -19 169 degrees QTc Int : 561 ms Undetermined rhythm Nonspecific intraventricular block Inferior infarct (cited on or before 20-OCT-2018) Abnormal ECG When compared with ECG of 20-OCT-2018 14:02, (Unconfirmed) Current undetermined rhythm precludes rhythm comparison, needs review Unconfirmed Result
[2018-10-20 14:39] LABS: ALB/GLOB RATIO 0.9; ALBUMIN 3.3 g/dL (3.5-5.0); CALCIUM 9.5 mg/dL (8.8-10.2); CREATININE 2.4 mg/dL (0.7-1.2); POTASSIUM 5.8 mmol/L (3.5-5.1); TOTAL BILIRUBIN 0.52 mg/dL (0.20-1.00); TOTAL PROTEIN 6.8 g/dL (6.3-8.3)
[2018-10-20 14:40] LABS: URINE SOURCE CATH
--- NOTE | 2018-10-20 14:44 | Diag Imaging Result Doc PS360 ---
EXAM: CHEST-2 VIEWS 10/20/2018 HISTORY: weakness TECHNIQUE: PA and lateral chest COMMENT: There is a PICC line on the right with its tip in the superior vena cava. There is a pacemaker on the left. There is some questionable atelectasis in the right costophrenic sulcus region, otherwise there has been no significant change since previous study of 10/01/2018. IMPRESSION: Questionable right lower lobe atelectasis. Electronically signed by Arnaldo Isaacs 10/20/2018 2:41 PM
[2018-10-20 14:51] LABS: BILIRUBIN URINE NEGATIVE (NEGATIVE); BLOOD URINE NEGATIVE (NEGATIVE); COLOR YELLOW; GLUCOSE URINE NEGATIVE (NEGATIVE); KETONE URINE NEGATIVE (NEGATIVE); LEUKOCYTES URINE NEGATIVE (NEGATIVE); NITRITE URINE NEGATIVE (NEGATIVE); PH URINE 5.5; PROTEIN URINE 30 mg/dL (NEGATIVE); SP GRAVITY URINE 1.015; TURBIDITY URINE CLEAR (CLEAR); UROBILINOGEN URINE NORMAL (NORMAL)
[2018-10-20] MEDS ORDERED: KAYEXALATE PO ONE (14:53)
[2018-10-20 14:55] LABS: UR EPITHELIAL CELLS <10 /HPF (<10); URINE BACTERIA NEGATIVE /HPF; URINE RBC <10 /HPF (<10); URINE WBC <10 /HPF (<10)
[2018-10-20 14:59] LABS: URINE CASTS NONE SEEN
[2018-10-20 15:08] LABS: CK INDEX 0.8 (0.0-2.5); CK-MB 7.9 ng/mL (0.0-5.0)
[2018-10-20] MEDS ORDERED: VANCOMYCIN 1 GM/NS 1 GM/250 ML IVPB IV ONE (15:26)
[2018-10-20] MEDS ORDERED: ZOSYN 3.375 GM in NS 50 ML IV ONE (15:26)
--- NOTE | 2018-10-20 15:37 | Diag Imaging Result Doc PS360 ---
CT HEAD W/O CONTRAST - 10/20/2018 INDICATION: ams COMPARISON: 10/10/2018 FINDINGS: There is a stable plate at the superior skull. Stable atrophy and mild chronic microvascular disease. No intracranial mass or hemorrhage. No skull fracture. IMPRESSION: No acute disease or change from prior. This exam was performed using automated exposure control, adjustment of mA or kV according to patient size, and/or use of iterative reconstruction technique Electronically signed by Octavio Muro 10/20/2018 3:35 PM
[2018-10-20 15:38] LABS: MAGNESIUM 2.4 mg/dL (1.5-2.7); PHOSPHORUS 4.8 mg/dL (2.7-4.5)
--- NOTE | 2018-10-20 16:08 | PROVIDER DOCUMENTATION ---
This chart was entered by Tg Stewart Scribe, acting as scribe for Gene Jensen CRNP. HPI-General Adult - General Chief Complaint: Altered Mental Status Stated Complaint: DEYDRATED Time Seen by Provider: 10/20/18 13:49 Source: EMS Allergies/Adverse Reactions: Patient Allergies Allergy/AdvReac Type Severity Reaction Status Date / Time Sulfa (Sulfonamide Allergy RASH Verified 10/01/18 18:26 Antibiotics) adhesive AdvReac ITCHING Verified 10/01/18 18:26 Home Medications: Home Medication List Medication Instructions Recorded Confirmed Last Taken Type Atorvastatin Calcium [Lipitor] 20 mg PO QPM 01/29/17 10/01/18 09/21/18 21:00 History Carbidopa/Levodopa [Sinemet 25/100] 1 each PO 4XDAY 01/29/17 10/01/18 09/22/18 11:00 History Fish Oil/Dha/Epa [Fish Oil 1,200 1 each PO QAM 01/29/17 10/01/18 09/22/18 11:00 History mg Fish Oil] Furosemide [Lasix] 40 mg PO QAM 01/29/17 10/01/18 09/22/18 11:00 History Glycopyrrolate [Robinul] 1 mg PO QPM 01/29/17 10/01/18 09/21/18 21:00 History Sacubitril/Valsartan [Entresto 24 1 each PO BID 01/29/17 10/01/18 09/22/18 09: 00 History mg-26 mg Tablet] Venlafaxine [Effexor] 75 mg PO QPM 01/29/17 10/01/18 09/21/18 21:00 History Pantoprazole [Protonix] 40 mg PO DAILY 10/06/17 10/01/18 09/22/18 09:00 History Polyethylene Glycol 3350 [Miralax] 17 gm PO DAILY #1 misc 10/08/17 10/01/1812/05 09:00 Rx Multivit-Min/FA/Lycopen/Lutein 1 tab PO DAILY 12/30/17 10/01/18 09/22/18 11:00 History [Centrum Silver Tablet] Vitamin E Mixed [Vitamin E] 1 cap PO DAILY 12/30/17 10/01/18 09/22/18 09:00 History Aspirin [Adult Low Dose Aspirin EC] 81 mg PO DAILY 07/09/18 10/01/18 09/22/18 11 :00 History Insulin Lispro [Humalog] 30 unit SQ TID 07/09/18 10/01/18 09/22/18 09:00 History Levothyroxine Sodium [Synthroid] 25 mcg PO DAILY 07/09/18 10/01/18 09/21/18 09: 00 History Metoprolol [Lopressor] 25 mg PO DAILY #30 tab 07/09/18 10/01/18 09/22/18 09:00 Rx Amitriptyline [Elavil] 100 mg PO HS 09/23/18 10/01/18 Unknown History Docusate Sodium [Colace] 200 mg PO QHS capsule 09/29/18 10/01/18 Unknown Rx Ferrous Sulfate 325 mg PO WBREAKFAST tablet 09/29/18 10/01/18 Unknown Rx Morphine E.r. [Ms Contin] 15 mg PO TID #30 tab 09/29/18 10/01/18 Unknown Rx Tamsulosin [Flomax] 0.4 mg PO BID capsule 09/29/18 10/01/18 Unknown Rx Carbidopa/Levodopa [Sinemet 25/100] 1 each PO 4XDAY tablet 10/14/18 Unknown Rx Insulin Glargine [Basaglar] 25 unit SUBQ BID insuln.pen 10/14/18 Unknown Rx Megestrol Acetate [Megace Liquid] 200 mg PO BID udc 10/14/18 Unknown Rx - History of Present Illness -Gen Adult Nature of Presenting Problems: Patient is a 83 year old male who presents to the ED via EMS with decrease in appetite. EMS states patient was recently discharged home after being admitted for UTI. Patient denies pain currently. Pt's spouse states pt is getting IV antibiotics via PICC line at home for MRSA. Spouse states she noticed AMS onset yesterday. Location of Pain/Injury: reports: none Pain Radiation: reports: no radiation Quality of Pain: reports: none Severity: reports: mild Onset/Duration: reports: gradual Timing: reports: still present Context/Activities at Onset: reports: light activity Modifying Factors: improves with: nothing Associated Symptoms: reports: loss of appetite Similar Symptoms Previously?: Yes Recently seen or treated by another doctor?: Yes Review of Systems - Adult - REVIEW OF SYSTEMS - ADULT Constitutional: reports: no symptoms reported Eyes: reports: no symptoms reported Ears, Nose, Mouth & Throat: reports: no symptoms reported Cardiovascular: reports: no symptoms reported Respiratory: reports: no symptoms reported Gastrointestinal: reports: poor appetite. denies: abdominal pain, diarrhea, nausea, vomiting Genitourinary: reports: no symptoms reported Musculoskeletal: reports: no symptoms reported Integumentary: reports: no symptoms reported Neurological: reports: no symptoms reported Psychiatric: reports: no symptoms reported Endocrine: reports: no symptoms reported Hematologic/Lymphatic: reports: no symptoms reported Allergic/Immunologic: reports: no symptoms reported All Other Systems: Reviewed and Negative Past History - Adult - PAST MEDICAL HISTORY-ADULT Review of Records: reports: Nursing Assessment Review, Medications Reviewed, Social history reviewed & non-contributory. Major Childhood Illnesses: reports: denies history Cardiovascular: reports: CAD, CHF, HTN, hyperlipidemia, CA Respiratory: reports: denies history Gastrointestinal: reports: cancer (colon) Obstetrical/Gynecological: reports: denies history Genitourinary: reports: denies history Musculoskeletal: reports: denies history Neurological: reports: Parkinson's Endocrine/Immune: reports: Diabetes Other Conditions: reports: other (neuropathy, decrease of feeling in his jayna LE from the knees down) - PRIOR SURGERIES/PROCEDURES Surgical/Procedure History: reports: cholecystectomy, cardiac stent (3), other ( colon surgery, head) - IMMUNIZATION STATUS Childhood Immunizations: See Nurse Assessment Flu Vaccine: See Nurse Assessment - FAMILY HISTORY Family History: reviewed, not pertinent - SOCIAL HISTORY Smoking: denies Substance Use: denies Living Situation: family Physical Exam-General - PHYSICAL EXAM-ADULT Initial Vital Signs Reviewed: Yes - CONSTITUTIONAL General Appearance: alert, no apparent distress, other (ill in appearance) - HEAD, EARS, NOSE, MOUTH & THROAT HENMT: other (dry mucous membranes) - RESPIRATORY Respiratory: chest non-tender, other (diminished breath sounds bilaterally) - CARDIOVASCULAR Cardiovascular: other (irregular rate) - GASTROINTESTINAL (ABDOMEN) Abdominal Exam: normal bowel sounds, non tender, soft - MUSCULOSKELETAL Extremity: other (well healing surgical site to right lower leg. ecchymosis present to right lower leg.) - SKIN Integumentary: ecchymosis (right lower leg), other (well healing surgical site to right lower leg. PICC line to right upper arm) - PSYCHIATRIC Psych/Mental Status: normal mood/affect Progress - PLAN OF CARE/RESULTS Progress/Plan/Lab Results: Vital Signs - 8 hr 10/20/18 14:00 Temperature 97.5 F L Pulse Rate 93 H Respiratory Rate 16 Blood Pressure 84/57 O2 Sat by Pulse Oximetry 96 Orders Category Date Time Status 0.9% Sodium Chloride Inj [Ns] 1,000 ml Med 10/20/18 13:57 Discontinued .ROUTE As Directed Result Diagrams: 10/20/18 13:57 10/20/18 13:57 - REASSESSMENT Reassessment #1 Time Reassessed: 15:05 (No change in pt condition. Pt and family updated of results and plan for probable admission.) Status: unchanged Reassessment #2 Time Reassessed: 15:27 (discussed pt with Dr Turner who suggests ordering Zosyn & Vancomycin) - EKG 1 Time of EKG reading by physician:: 14:02 EKG Read and Signed by:: Narendra Turner EKG Interpretation (*Must complete 3 of following elements*): Abnormal Rate: 97 Rhythm: atrial fibrillation with paced rhythm Comments: nonspecific intraventricular block; inferior infarct, age undetermined - XRAY 1 XRAY: Bilateral XRAY Study: Chest Impression: See EMR Report ( There is a PICC line on the right with its tip in the superior vena cava. There is a pacemaker on the left. There is some questionable atelectasis in the right costophrenic sulcus region, otherwise there has been no significant change since previous study of 10/01/2018. IMPRESSION: Questionable right lower lobe atelectasis. Electronically signed by Arnaldo Isaacs 10/20/2018 2:41 PM) - CT/MRI 1 CT Study: Head Impression: See EMR Report (There is a stable plate at the superior skull. Stable atrophy and mild chronic microvascular disease. No intracranial mass or hemorrhage. No skull fracture. IMPRESSION: No acute disease or change from prior. This exam was performed using automated exposure control, adjustment of mA or kV according to patient size, and/or use of iterative reconstruction technique Electronically signed by Octavio Muro 10/20/2018 3:35 PM) - CONSULTS/PCP/HOSPITALIST Notification #1 *Consult/PCP/Hospitalist*: KIMO Vasquez for Hospitalist Time Discussed: 16:04 (admit to Dr Redd) Reason/Comments: consulted with Pedro about patient. Consult Disposition: Will see in ED, Admit Departure - Departure Date of Disposition Decision: 10/20/18 Time of Disposition Decision: 14:52 DIAGNOSIS: Elevated CK, Elevated CK-MB level, Hyperkalemia, Hyponatremia, Elevated d-dimer Altered mental status Qualifiers: Altered mental status type: unspecified Qualified Code(s): R41.82 - Altered mental status, unspecified Hypotension Qualifiers: Hypotension type: unspecified hypotension type Qualified Code(s): I95.9 - Hypotension, unspecified Disposition: ADMITTED INPATIENT 09 Certified Medical Emergency: Emergent Condition: Fair Referrals and Follow-Ups: Dez Galicia MD [Primary Care Provider] - - Critical Care Note This patient required my direct & personal management of CC.: Yes Total Time (mins): 46 Critical Care Statement: This patient required my direct personal management to treat or rule out processes, the absence of which, could potentiallly result in sudden, clinically significant life or limb threatening deterioration. Attestation - Physician/ LANDON Attestation Patient care was provided by Advanced Practice Provider:: Yes Advanced Practice Provider:: Gene Jensen Advanced Practice Provider documentation review:: The Mid-level provider documentation, treatment plan and medical decision making was reviewed by the physician who agrees with all treatment and medical decision making by the MLP. The physician spent face to face time with patient:: No Advanced Practice Provider documentation review:: Supervising physician onsite and consulted in the evaluation and care of this patient. The physician did not have a face to face encounter with the patient. This chart was documented by the indicated bradleyibphyllis, (Tg Stewart Scribe) and accurately reflects the services I performed and decisions made by , Gene Jensen CRNP, as attested by the provider's signature.
[2018-10-20] MEDS ORDERED: ROCEPHIN 2 GM in NS 50 ML IV SCH (16:45)
[2018-10-20] MEDS ORDERED: CUBICIN 500 MG in NS 100 ML IV SCH (17:00)
[2018-10-20 17:27] LABS: PROTEIN CREAT RATIO 0.4; UR CREAT RANDOM 145.6 mg/dL (14-26); UR PROT RANDOM 55.9 mg/dL
[2018-10-20] MEDS ORDERED: TEFLARO IV SCH (17:30)
[2018-10-20] MEDS: NS 1,000 ML IV SCH (17:42)
--- NOTE | 2018-10-20 18:20 | Diag Imaging Result Doc PS360 ---
KNEE 1-2 VIEWS-RIGHT - 10/20/2018 INDICATION: sepsis, recent leg surgery, knee swollen TECHNIQUE: Two views COMPARISON: 09/27/2018 FINDINGS: There is a stable lateral side plate at the proximal tibia. Stable fractures visible through the proximal tibia and fibula. These are minimally displaced. No new fractures. No hardware fracture or loosening. There is severe peripheral vascular disease of the popliteal artery. IMPRESSION: No change from prior. Electronically signed by Octavio Muro 10/20/2018 6:17 PM
--- NOTE | 2018-10-20 18:21 | Diag Imaging Result Doc PS360 ---
LOWER LEG-RIGHT - 10/20/2018 INDICATION: recent leg surgery TECHNIQUE: Two views COMPARISON: 09/27/2018 FINDINGS: There are no distal fractures. IMPRESSION: No distal fractures. Electronically signed by Octavio Muro 10/20/2018 6:18 PM
--- NOTE | 2018-10-20 18:22 | Diag Imaging Result Doc PS360 ---
FOOT 2 VIEWS RIGHT - 10/20/2018 INDICATION: right heel decubitus TECHNIQUE: COMPARISON: 09/27/2018 FINDINGS: There are severe old healed deformities to the first and second metatarsals. There are severe degenerative changes of the mid tarsal joints. There are severe hammertoe deformities. No fractures or bony erosions. No soft tissue gas. IMPRESSION: No acute disease. Electronically signed by Octavio Muro 10/20/2018 6:20 PM
[2018-10-20 18:28] LABS: CALCIUM 9.7 mg/dL (8.8-10.2); CREATININE 2.2 mg/dL (0.7-1.2); POTASSIUM 4.9 mmol/L (3.5-5.1)
[2018-10-20] MEDS: TEFLARO 400 MG in NS 250 ML IV SCH (18:39)
--- NOTE | 2018-10-20 18:46 | INFECTIOUS DISEASE PROGRESS NO ---
DATE: 10/20/2018 PRESENT ILLNESS: The patient is admitted the hospital with rhabdomyolysis, most likely secondary to treatment with daptomycin. The patient was being treated for a methicillin-resistant Staph aureus bacteremia, which may have involved the patient's right leg that had metal in it. The patient also during his last hospital stay had a urinary tract infection. MEDICATIONS: The patient has been placed on ceftaroline. PHYSICAL EXAMINATION: Vital Signs: Temperature is 97.5 degrees, pulse 92, respirations 20, blood pressure 139/70. General: This is a chronically ill-appearing elderly male. He is in no acute distress. Head, Eyes, Ears, Nose, and Throat: He can hear my spoken words and see near objects. He does not have any white patches on his tongue. Neck: No stiffness. Lungs: Clear to auscultation. Cardiovascular: Heart rate is regular. Abdomen: Soft and nontender. Extremities: The right leg is at this time not swollen. The incision is intact, except for one small area where there is a little bit of bleeding. There is no purulence from the incision. Neurologic: The patient is awake, but is confused. LAB AND X-RAY: Chest x-ray shows a questionable right lower lobe atelectasis. CT scan of the head showed no acute disease. Blood and urine cultures are pending. CK is 1013. Urinalysis shows no white cells, bacteria, or red blood cells. The creatinine is 2.4. GFR is 26. CBC shows a white count of 13,750, hemoglobin 10.2, and platelet count 363,000. ASSESSMENT AND PLAN: The patient has been admitted to the hospital tonight with rhabdomyolysis, most likely secondary to daptomycin. Daptomycin has been discontinued, and the patient has been placed on ceftaroline, with a modification in the dose because of the patient's acute renal failure. COMORBIDITIES: The patient is elderly. He is diabetic. cc: Gonzalo Lane MD
[2018-10-20] MEDS ORDERED: CALMOSEPTINE OINTMENT TOP PRN (18:53)
--- NOTE | 2018-10-20 19:28 | HISTORY AND PHYSICAL ---
PRIMARY CARE PROVIDER: Dr. Dez Galicia. CHIEF COMPLAINT: Confusion. HISTORY OF PRESENT ILLNESS: Mr. Umaña is an 83-year-old male who was discharged from our service last week for MRSA bacteremia, UTI with Klebsiella pneumoniae, and also recent ORIF of the tibia. He was discharged with a PICC line and daptomycin for eight weeks. His states that since that time he has become progressively more confused, worse almost every day, culminating today to the point where she felt she needed to come into the ER for evaluation. There had been no reported fevers. No nausea or vomiting. No chest pain or cough. He has had some mild diarrhea, three bowel movements two days ago, one yesterday, and none today. She does report that he was complaining of some dysuria two days ago but improved with over the counter Azo. When he got to the ER today, he had a head CT done, which did not show anything acute. His laboratory data showed multiple metabolic abnormalities including rhabdomyolysis, acute renal failure, hyponatremia, and hyperkalemia as well as a minimally elevated white count at 13.75. He was noted to be hypotensive in the ER with a systolic in the 80s, so it was felt he would need to go to the ICU for sepsis. PAST MEDICAL HISTORY: 1. Diabetes type 2, requiring insulin. 2. Recent tibia fracture requiring ORIF. 3. Recent diagnosis of MRSA bacteremia and Klebsiella UTI. 4. Parkinson's disease. 5. Squamous cell carcinoma. 6. History of colon cancer. 7. Coronary artery disease. 8. Hypertension. 9. Hyperlipidemia. 10.Congestive heart failure with EF 25% to 30% by echo on 09/03/2017 and repeated on 07/09/2018 showed improved EF at 45% to 50%. PAST SURGICAL HISTORY: AICD, colon surgery, cholecystectomy, right ORIF of the tibia, cataract surgery, coronary stent, squamous cell carcinoma excision. ALLERGIES: Sulfa and adhesives. HOME MEDICATIONS: Elavil 100 mg p.o. at bedtime, aspirin 81 mg daily, Lipitor 20 mg p.o. every p.m., vitamin B12 2500 mcg daily, fish oil one in the a.m., Lasix 40 mg a.m., Basaglar 30 to 40 units subcutaneously as directed, Humalog 30 units subcutaneously t.i.d., Synthroid 50 mcg daily, multivitamin one daily, Zyprexa 5 mg p.o. at bedtime, Protonix 40 mg daily, Entresto 24/ one p.o. b.i.d., Aldactone 25 mg daily, Effexor 75 mg q p.m., Sinemet 25/100 four times a day, Lopressor 25 mg daily, morphine ER 15 mg p.o. t.i.d., MiraLAX 17 grams daily. REVIEW OF SYSTEMS: Unable to obtain due to neuro status. PHYSICAL EXAMINATION: VITAL SIGNS: Blood pressure is 84/57, heart rate is 93, respiratory rate 16, O2 saturation is 96% on room air. Temperature is 97.5. GENERAL: Chronically ill appearing 83-year-old male lying in hospital bed in no acute distress. NEUROLOGICAL: He is disoriented to everything except his name. He does follow commands but has right lower extremity weakness on a level of 3/5 compared to 4/5 all other extremities. He does have a tremor. HEENT: Head is atraumatic and normocephalic. His pupils are equal, round, and reactive to light. Oral mucosa is dry. NECK: Trachea is midline. There is no JVD. CHEST: Clear to auscultation. CARDIOVASCULAR: Regular rate and rhythm. S1 and S2 is noted. GASTROINTESTINAL: Soft, nondistended, nontender. Bowel sounds are hypoactive. EXTREMITIES: Right knee edematous and slightly warm to touch. Proximal tibia with surgical incision with dry blood, slight erythema, and ecchymosis noted. No purulent drainage. Right heel with half dollar pressure ulcer noted with eschar. There is trace edema in the right leg. Pulses are diminished bilaterally. DIAGNOSTIC DATA: Head CT shows chronic changes. Chest x-ray shows questionable right lower lobe atelectasis. No significant change from 10/01/2018. EKG shows intermittently paced rhythm with significant baseline artifact. Will need repeat. WBC 13.75, hemoglobin 10.2, hematocrit 32.2, platelet count 363. D dimer 3.79. Sodium 128, potassium 5.8, chloride 95, CO2 23, anion gap 10, BUN 58, creatinine 2.4, glucose 136, calcium 9.5, phosphorus 4.8, magnesium 2.4. AST 41 and ALT 12. Alkaline phosphatase 70. CK 1013. CK-MB 7.9. Troponin 0.085. proBNP 569. Albumin 3.3. UA is negative. Random creatinine in the urine 145.6. Urine osmolality 427. Protein 55.9. Urine random sodium 29. ASSESSMENT AND PLAN: 1. Toxic metabolic encephalopathy: Unclear as to the source. He is on multiple mind altering medications and does have possible infection. Will hold all of his pain medication and psychiatric medications with the exception of his Sinemet. He is being treated for bacterial infection with Teflaro. He also does have some likely dehydration, hyponatremia, and acute kidney injury, all which could be contributing to altered mental status. Head CT is reassuring. However, we will watch neuro status closely. Hopefully, this should improve with cessation of medication that can be mind altering as well as treatment of underlying dehydration and possible infection. 2. Acute kidney injury with mild hyperkalemia: He was given Kayexalate in the emergency room and hydrated. We will recheck a basic metabolic panel now. Hold all nephrotoxins as he is on Entresto as well as Aldactone and Lasix. If he has any progressive worsening of his renal function will consult Nephrology. We will also consider renal ultrasound. 3. Sepsis: The patient is hypotensive with a white count although he is afebrile. He has multiple possible sources of infection, including the PICC line, right lower leg incision, and questionable right lower lobe atelectasis on chest x-ray. Blood cultures, sputum cultures, and urine cultures have all be obtained. Will continue Telfaro. Dr. Lane with Infectious Disease has been consulted. 4. Rhabdomyolysis: Probably caused by the daptomycin that he was on. This has been stopped. Will trend his CK and lightly hydrate. This is also likely contributing to his renal failure. 5. Diabetes mellitus: Will add patterned sugars, sliding scale insulin, and continue his home medications once he is eating. For now he is n.p.o. 6. Hyponatremia: Will lightly hydrate and follow. 7. Parkinson's: Continue his Sinemet. Overall stable. 8. Recent right tibia fracture, status post open reduction internal fixation: Given the swelling and the white count, we have ordered comprehensive x-ray of the knee, lower leg, and foot. We have also consulted Orthopedics. 9. Deep venous thrombosis prophylaxis with sequential compression device to the left leg only. Further recommendations to follow. Dictated by KIMO Irvin for Rohan Carpenter MD cc: KMIO Irvin MD Patient presenting with altered mental state, head ct shows chronic changes, noted to have impaired renal function with raised potassium level. Noted to be hypotensive , cpk is elevated . I agree with the assessment and plan of the CHEMICAL INSPECTOR. Dr. Jayden JOSÉ
[2018-10-20 19:40] LABS: CK INDEX 0.7 (0.0-2.5); CK-MB 7.96 ng/mL (0.0-5.0)
[2018-10-20] MEDS: DUONEB (A & A) INH SCH ×2 (20:06→22:56)
[2018-10-20] MEDS: SINEMET 25/100 PO SCH (21:43)
[2018-10-20] MEDS: HUMULIN R SUBQ SCH (21:44)
[2018-10-21 00:18] LABS: CK INDEX 0.9 (0.0-2.5); CK-MB 8.33 ng/mL (0.0-5.0)
[2018-10-21] MEDS: NS 1,000 ML IV SCH ×3 (01:09→13:46)
[2018-10-21] MEDS: DUONEB (A & A) INH SCH ×6 (03:04→23:07)
[2018-10-21] MEDS: TEFLARO 400 MG in NS 250 ML IV SCH (06:03)
[2018-10-21] MEDS: HUMULIN R SUBQ SCH ×4 (06:10→20:40)
[2018-10-21] MEDS: SYNTHROID PO SCH (06:14)
--- NOTE | 2018-10-21 07:26 | Diag Imaging Result Doc PS360 ---
EXAM: CHEST-PORTABLE INDICATION: pna? TECHNIQUE: One view COMPARISON: 10/20/2018 FINDINGS: The right PICC line is in stable position. Atelectasis at the right costophrenic sulcus has improved. No new consolidation is appreciated. Cardiac silhouette is stable. IMPRESSION: Improvement of right basilar atelectasis. Electronically signed by Deangelo Fowler 10/21/2018 7:24 AM
[2018-10-21 07:34] LABS: BASO# 0.04 X1000 (0.0-0.2); BASO% 0.4 % (0.0-0.8); EOS# 0.38 X1000 (0.0-0.7); EOS% 3.7 % (0.0-10.0); HEMATOCRIT 30.3 % (42.0-52.0); HEMOGLOBIN 9.6 g/dL (14.0-18.0); IMM GRAN# 0.02 X1000 (0.0-0.04); IMM GRAN% 0.2 % (0.0-0.5); LYMPH# 1.46 X1000 (1.2-3.4); LYMPH% 14.2 % (20.5-51.1); MCH 27.8 PG (27-31); MCHC 31.7 g/dL (33-37); MCV 87.8 FL (81-99); MONO# 0.81 X1000 (0.11-0.59); MONO% 7.9 % (1.7-9.3); MPV 9.5 FL (7.4-10.4); NEUT# 7.58 X1000 (1.4-6.5); NEUT% 73.6 % (42.2-75.2); PLT 324 X1000 (130-400); RBC 3.45 XMIL (4.7-6.1); RDW 12.7 % (11.5-14.5); WBC 10.29 X1000 (4.8-10.8)
[2018-10-21 08:01] LABS: ALB/GLOB RATIO 0.8; ALBUMIN 2.9 g/dL (3.5-5.0); CALCIUM 8.6 mg/dL (8.8-10.2); CREATININE 1.4 mg/dL (0.7-1.2); MAGNESIUM 1.9 mg/dL (1.5-2.7); POTASSIUM 4.6 mmol/L (3.5-5.1); TOTAL BILIRUBIN 0.53 mg/dL (0.20-1.00); TOTAL PROTEIN 6.4 g/dL (6.3-8.3)
[2018-10-21 08:05] LABS: CK INDEX 1.1 (0.0-2.5); CK-MB 7.17 ng/mL (0.0-5.0)
[2018-10-21] MEDS ORDERED: PROTONIX PO SCH (09:00)
--- NOTE | 2018-10-21 09:20 | PROGRESS NOTE ---
DATE: 10/21/2018 SUBJECTIVE: The patient reports feeling fine, although he looks to me like he is still confused. No issues noted as per nursing staff overnight. OBJECTIVE: Vital Signs: Temperature 96.8 degrees, heart rate 94, respiratory rate 24, blood pressure 134/77, O2 saturation 100% on room air. General Examination: This is a chronically ill- appearing, 83-year-old, male, lying in bed, in no acute distress. HEENT: Head is normocephalic and atraumatic. The mucous membranes are very dry. Neck: No JVD noted. No carotid bruits. No lymphadenopathy. No thyromegaly. Cardiovascular Examination: S1 and S2 heard. No murmurs, gallops, or rubs. Regular rate and rhythm. Respiratory Examination: Clear bilaterally to auscultation. No work of breathing or using accessory muscles. Abdomen: Soft, nontender to palpation. Bowel sounds present. No organomegaly. Extremities: Right knee is edematous and slightly warm to touch. There is a proximal tibia with surgical incision with dry blood, slight erythema, and ecchymoses noted. No purulent drainage though. There is a right heel pressure ulcer noted with a scar. Neurological Examination: The patient is still confused. Moves 4 extremities spontaneously and coherent speech. Laboratory Data: White cell count 10.29, hemoglobin 9.6, hematocrit 30.3, platelets 324,000. A BMP that shows a creatinine of 1.4 and a sodium of 133. CK is 634. The urinalysis is normal. ASSESSMENT AND PLAN: 1. Metabolic encephalopathy secondary to acute renal failure secondary to rhabdomyolysis. The reason why this patient came to the hospital was because of rhabdomyolysis secondary to daptomycin usage. The patient was sent to a rehabilitation facility with that medication secondary to methicillin-resistant Staphylococcus aureus bacteremia. At this point, of course, this medication has been stopped. We have started him initially on Teflaro and consulted infectious disease doctor to see if there is any other medication that we can use for him or if Teflaro is okay for him. We have started him on intravenous fluids. We will continue with same management. 2. Acute kidney injury with mild hyperkalemia secondary to rhabdomyolysis. Renal function has improved from 2.2 to 1.4 today. We will continue with intravenous fluids. No need for any cardiac study because the potassium is back to normal. We will continue to monitor this patient closely. 3. Rhabdomyolysis. We will continue to trend CK and we will continue checking BMP as well. 4. Diabetes mellitus type 2. We will continue with sliding scale insulin and Accu-Chek before meals and also at bedtime. 5. Parkinson's disease. We will continue with Sinemet. 6. Recent tibial fracture, and status post open reduction and internal fixation. Because of recent swelling, bleeding, and elevated white cell count, we have decided to consult orthopedics. 7. Code status. As per , the patient is Do Not Resuscitate level 1. 8. Disposition. We will continue to monitor this patient in the intensive care unit for today. If mental status is better, we may transfer out of the unit tomorrow. cc: Erickson Kwon MD
[2018-10-21] MEDS: SODIUM CHLORIDE 0.9% INJ SCH (09:31)
[2018-10-21] MEDS: PROTONIX IV SCH (09:31)
[2018-10-21] MEDS: VITAMIN B-12 PO SCH (09:32)
[2018-10-21] MEDS: MS CONTIN PO SCH ×2 (09:32→20:31)
[2018-10-21] MEDS: SINEMET 25/100 PO SCH ×4 (09:32→20:32)
--- NOTE | 2018-10-21 09:44 | INFECTIOUS DISEASE PROGRESS NO ---
DATE: 10/21/2018 PRESENT ILLNESS: The patient is being treated for methicillin-resistant Staph aureus bacteremia and infection of his right leg. His CPK went up and his creatinine also went up due to rhabdomyolysis. Fortunately, today's lab work is all much better. MEDICATIONS: Specifically, daptomycin was discontinued and ceftaroline was started yesterday. LAB AND X-RAY: Today the patient's CBC shows a white count of 10,290, hemoglobin 9.6, and platelet count 324,000. The creatinine is down to 1.4. The CK is down to 634. The GFR is up to 49. Radiology: There is no new radiology study. ASSESSMENT AND PLAN: The patient, as mentioned above, has methicillin- resistant Staph aureus bacteremia and infection of the patient's right leg with possible involvement of the metal in his leg.. I am going to switch to ceftaroline to treat the patient's methicillin- resistant Staph aureus bacteremia and infection of the leg that has metal in it. COMORBIDITIES: The patient's comorbidities are that he is elderly and he also is a diabetic. ADDENDUM: See my later dictation regarding the physical exam, lab and radiology results,and the assessment and plan for the patient. cc: Gonzalo Lane MD MTDDiego
--- NOTE | 2018-10-21 10:54 | EKG Report ---
Test Performed on : 10/21/2018 09:54:33 AM Test Reason : please repeat due to artifact on original Blood Pressure : / mmHG Vent. Rate : 101 BPM Atrial Rate : 101 BPM P-R Int : 000 ms QRS Dur : 168 ms QT Int : 444 ms P-R-T Axes : 000 133 071 degrees QTc Int : 575 ms Ventricular-paced rhythm Abnormal ECG When compared with ECG of 20-OCT-2018 14:02, (Unconfirmed) Previous ECG has undetermined rhythm, needs review Unconfirmed Result
--- NOTE | 2018-10-21 11:12 | INFECTIOUS DISEASE PROGRESS NO ---
DATE: 10/21/2018 ADDENDUM: PHYSICAL EXAMINATION: Vital Signs: Temperature is 97.8 degrees, pulse 97, respirations 17, blood pressure 134/81. General: This is an ill-appearing, elderly male. He is in no acute distress. Head, Eyes, Ears, Nose, and Throat: He can hear my spoken words and see near objects. He does not have any white padding on his tongue. Neck: No meningismus. Lungs: Clear to auscultation. Cardiovascular: Heart rate is regular. Abdomen: Soft and nontender. Neurologic: The patient is awake. He followed requests to move his extremities. There is no tremor. Unfortunately, the patient seemed confused. He was not oriented as to time or place. Bones, Joints, Muscles: There were no swollen joints or tender muscles. Integument: No rash. cc: Gonzalo Lane MD
[2018-10-21] MEDS: TEFLARO 600 MG in NS 250 ML IV SCH (13:46)
--- NOTE | 2018-10-21 18:08 | CONSULTATION ---
DATE OF CONSULTATION: 10/21/2018 CHIEF COMPLAINT: Confusion and right lower extremity pain. HISTORY OF PRESENT ILLNESS: Mr. Umaña is an 83-year-old male who was discharged from the hospital about a week ago for MRSA bacteremia, urinary tract infection with Klebsiella pneumoniae. He recently underwent an ORIF of the right proximal tibia. He was discharged with a PICC line a week ago and daptomycin was started for 8 weeks. The reports that ever since surgery, the patient has become increasingly confused. She reports that it got so bad the past couple of days that she had to take him to the emergency department. The patient denies fevers. He denies nausea, vomiting. He denies chest pain or cough. He does report that he had some painful urination about two days ago. The patient was sent to the emergency department and they performed a CT of the head that was negative. Laboratory data shows elevated white count and rhabdomyolysis. Also shows acute renal failure with hyponatremia and hyperkalemia. PAST MEDICAL HISTORY: 1. Diabetes type 2. 2. MRSA bacteremia of UTI. 3. Right proximal tibia fracture requiring ORIF. 4. Parkinson's. 5. Squamous cell carcinoma. 6. Colon cancer history. 7. CAD. 8. Hypertension. 9. Hyperlipidemia. 10. CHF. PAST SURGICAL HISTORY: AICD, colon surgery, cholecystectomy, ORIF of the right proximal tibia, cataract surgery, coronary stents, squamous cell carcinoma excision. ALLERGIES: She is allergic to sulfa and adhesives. HOME MEDICATIONS: Elavil 100 mg daily, aspirin 81 mg daily, Lipitor 20 mg daily , B12 2500 mcg daily, fish oil daily, Lasix 40 mg daily, Lovaza, chloride, insulin 30 to 40 units subcutaneously as directed, Humalog 30 units subcutaneously 3 times daily, Synthroid 50 mcg daily , multivitamin daily, Zyprexa 5 mg daily, Protonix 40 mg daily, Entresto 24/26mg daily, Aldactone 25 mg daily, Effexor 75 mg q.p.m., Sinemet 25/100 q.i.d., Lopressor 25 daily, morphine ER 15 t.i.d. and MiraLAX 1 cap full daily. REVIEW OF SYSTEMS: A 14 point review of systems were performed. All pertinent positives were listed in the HPI. PHYSICAL EXAMINATION: Vital Signs: Pulse rate 101, respiratory rate 13, blood pressure 103/66, is 99% on room air. General: The patient is awake and sitting in the bed, in no acute distress. The is sitting at the bedside. Neurologic: The patient is still slightly confused and disoriented to the year. He knows his name. He does have some shaking tremors. HEENT: Head is atraumatic, normocephalic. Pupils are equal and round. The oral mucosa is moist at this time. Neck: Supple. Chest: There is equal chest expansion, rise and fall. Cardiovascular: There is some tachycardia. Gastrointestinal: Abdomen soft and nontender. Extremities : The right lower extremity does have some swelling and is slightly warm to the toes. The right proximal tibia, surgical scar with some mild erythema and bruising. There is a minimal amount of drainage coming from a staple removal site. The right heel has a pressure ulcer noted with black eschar. There are palpable pedal pulses in the right lower extremity and good capillary refill. DIAGNOSTICS: Head CT shows chronic changes. X-ray of the knee shows a healing proximal tibia fracture with plate and good alignment. Also shows a proximal fibula fracture with good alignment. LABORATORY DATA: White blood cells 10.29, hemoglobin 9.6, hematocrit 30.3, platelets 324,000. His D-dimer is elevated at 3.79. Sodium 133, potassium 4.6, chloride 98, BUN 37 , creatinine 1.4, glucose is 138, creatine kinase is 634, CK-MB 7.17. Albumin is 2.9. Urinalysis showed protein and elevated creatinine levels. X-ray findings of the right knee show stable lateral side plate at the proximal tibia. Stable fractures visible through proximal tibia and fibula. There are no knee fractures. ASSESSMENT: 1. Right lower extremity swelling with proximal tibia and fibula fractures. 2. Acute kidney injury. 3. Sepsis. 4. Rhabdomyolysis. 5. Diabetes mellitus. 6. Hyponatremia. 7. Parkinson's. PLAN: We will plan on monitoring the patient overnight. Will continue his IV antibiotics at this time. I have spoken to the family and they wish to continue antibiotics at this time. If the knee starts to develop more drainage or swelling with inflammation and redness, then we will consider opening up the incision site and draining the knee with a washout. We will check on him in the morning to see how he is doing and see if he gets any worse. Dictated by KIMO Rosas for Deangelo Arias MD cc: KIMO Rosas MD MTDD
--- NOTE | 2018-10-21 18:34 | Diag Imaging Result Doc PS360 ---
EXAM: US RENAL 2 (RETROPER) COMPLETE - 10/21/2018 HISTORY: ariadna TECHNIQUE: Bilateral renal ultrasound COMPARISON: None. FINDINGS: The right kidney measures 9.9 x 5.2 x 5.1 cm in size, with cortical thickness of 1.3 cm. The left kidney measures 10.8 x 4.9 x 5.7 cm in size, with cortical thickness of 1.1 cm. There is an apparent nonspecific 6 mm cortical calcification at the mid left kidney. There is no discrete renal stone identified. There is no renal mass or hydronephrosis identified. The urinary bladder is decompressed by Villarreal catheter and is not evaluated. IMPRESSION: Apparent nonspecific 6 mm cortical calcification mid left kidney. No other visible renal abnormality. No hydronephrosis. Electronically signed by Chepe Anaya 10/21/2018 6:32 PM
[2018-10-21] MEDS ORDERED: BLISTEX MEDICATED BERRY LIP BALM TOP PRN (23:06)
[2018-10-22] MEDS: NS 1,000 ML IV SCH (00:24)
[2018-10-22] MEDS: TEFLARO 600 MG in NS 250 ML IV SCH ×2 (02:11→13:55)
[2018-10-22] MEDS: DUONEB (A & A) INH SCH ×6 (03:15→23:18)
[2018-10-22 05:45] LABS: BASO# 0.04 X1000 (0.0-0.2); BASO% 0.3 % (0.0-0.8); EOS# 0.53 X1000 (0.0-0.7); EOS% 3.9 % (0.0-10.0); HEMATOCRIT 28.8 % (42.0-52.0); IMM GRAN# 0.02 X1000 (0.0-0.04); IMM GRAN% 0.1 % (0.0-0.5); LYMPH# 2.02 X1000 (1.2-3.4); MCH 27.8 PG (27-31); MCHC 31.3 g/dL (33-37); MCV 88.9 FL (81-99); MONO# 1.05 X1000 (0.11-0.59); MONO% 7.8 % (1.7-9.3); NEUT# 9.83 X1000 (1.4-6.5); NEUT% 72.9 % (42.2-75.2); PLT 310 X1000 (130-400); RBC 3.24 XMIL (4.7-6.1); RDW 12.8 % (11.5-14.5); WBC 13.49 X1000 (4.8-10.8)
[2018-10-22 06:14] LABS: AGAP 13; ALB/GLOB RATIO 0.8; ALBUMIN 2.7 g/dL (3.5-5.0); ALKALINE PHOSPHATASE 51 U/L (32-122); BUN 24 mg/dL (8-22); CALCIUM 8.7 mg/dL (8.8-10.2); CHLORIDE 106 mmol/L (98-107); COSMO 284; ESTIMATED GFR > 60; GLUCOSE 147 mg/dL (70-104); GOT 26 U/L (10-34); GPT < 5 U/L (10-44); MAGNESIUM 1.7 mg/dL (1.5-2.7); SODIUM 139 mmol/L (136-145); TCO2 20 mmol/L (25-35); TOTAL BILIRUBIN 0.46 mg/dL (0.20-1.00); TOTAL PROTEIN 6.3 g/dL (6.3-8.3)
[2018-10-22] MEDS: HUMULIN R SUBQ SCH ×4 (06:40→21:43)
[2018-10-22] MEDS: SYNTHROID PO SCH (06:40)
[2018-10-22] MEDS: SODIUM CHLORIDE 0.9% INJ SCH (08:07)
[2018-10-22] MEDS: VITAMIN B-12 PO SCH (08:08)
[2018-10-22] MEDS: PROTONIX IV SCH (08:08)
[2018-10-22] MEDS: MS CONTIN PO SCH ×2 (08:10→21:43)
[2018-10-22] MEDS: SINEMET 25/100 PO SCH ×4 (08:10→21:45)
--- NOTE | 2018-10-22 10:48 | PROGRESS NOTE ---
DATE: 10/22/2018 SUBJECTIVE: Patient reports feeling fine. He is a little bit more awake. No issues noted as per nursing staff overnight. OBJECTIVE: Vital Signs: 98.6, heart rate 100, respiratory rate 19, blood pressure 128/65, O2 saturation 98% on room air. General: This is a chronically ill-appearing, 83- year-old, male, lying in bed, in no acute distress. HEENT: Head is normocephalic, atraumatic. Mucous membranes very dry. Neck: No JVD noted. No carotid bruits. No lymphadenopathy. No thyromegaly. Cardiovascular: S1, S2 heard. No murmurs, gallops, or rubs. Regular rate and rhythm. Respiratory: Clear bilaterally to auscultation. No work of breathing or using accessory muscles. Abdomen: Soft, nontender to palpation. Bowel sounds present. No organomegaly. Extremities: Exam of the right knee: Erythematous and slightly warm to touch. There is a surgical incision in the proximal tibia. There is mild erythema and ecchymosis noted. No purulent drainage noted. There is a right heel pressure ulcer noted with a scar. Neurological: Patient is a little bit more awake. Oriented to person but not in place. The patient thinks that he is in [place]. Patient moves 4 extremities spontaneously. Coherent but slow speech. LABORATORY DATA: White cell count 13.49, hemoglobin 9.0, hematocrit 28.0, platelets 310,000 with BMP that is unremarkable except for bicarbonate 20, BUN 24, glucose 147, albumin 2.7. ASSESSMENT AND PLAN: 1. Metabolic encephalopathy secondary to acute renal failure. Clinically, this patient is a little bit much better. Still is slow but more oriented. The reason why this patient came to the hospital was for this problem, confusion. At this point, with normal renal function, we will stop IV fluids. 2. Acute renal failure secondary to rhabdomyolysis. Actually the reason why he developed rhabdomyolysis was because he was sent to the rehab facility with IV daptomycin for MRSA bacteremia. So far, his renal function is back to normal today. I think we can start a liquid diet on this patient and stop IV fluids. We will continue to monitor BMP daily. 3. Rhabdomyolysis as mentioned before. CK was mildly elevated. We are checking a BMP daily. 4. Diabetes mellitus type 2. We will continue with sliding scale insulin. Accu -Chek before meals and also at bedtime. 5. Parkinson's disease. We will continue with Sinemet. 6. Recent tibial fracture status post open reduction internal fixation. Orthopedics has been consulted. We will follow recommendations. 7. Code status. Patient is DNR level 1 as per . 8. Disposition. I think this patient is much more stable. I think the patient needs to get more rest so we will consult physical therapy and will send him to [facility]. cc: Erickson Kwon MD MTDD
--- NOTE | 2018-10-22 16:40 | INFECTIOUS DISEASE PROGRESS NO ---
DATE: 10/22/2018 PRESENT ILLNESS: The patient developed rhabdomyolysis from daptomycin, but the patient has recovered well. I am currently treating the patient for a methicillin-resistant Staphylococcus aureus bacteremia and infection of his right leg which has metal in it. MEDICATIONS: The patient is on ceftaroline the dose of which has been altered because yesterday his renal function was decreased. LAB AND X-RAY: [place] [address], hemoglobin 9, platelet count 310,000. Creatinine is 1. GFR is greater than 60. Liver function studies are normal. Blood and urine cultures are negative. Swab for influenza is also negative. There is no new radiographic study for today. ASSESSMENT AND PLAN: As mentioned above the patient has a methicillin-resistant Staphylococcus aureus bacteremia and infection of his right leg which has metal in it. I am going to increase the dose of ceftaroline to the normal dose and continue treatment to complete a complete an 8 week course of antibiotic therapy. COMORBIDITIES: The patient is elderly. He is a diabetic and he had an adverse reaction to a medicine. PHYSICAL EXAMINATION: Vital Signs: Temperature is 100 degrees, pulse 108, respirations 22, blood pressure 120/76. General: This is an ill-appearing elderly male. He is in no acute distress. Head, eyes, ears, nose, and throat: He can hear my spoken words and see near objects. Neck: No meningismus. Lungs: Clear to auscultation. Cardiovascular: Heart rate is regular. Abdomen: Soft and nontender. Extremities: The patient's right leg is not erythematous, swollen, or draining anything from his incision. Neurologic: The patient is somewhat confused. He can move his extremities. There is no tremor. cc: Gonzalo Lane MD
[2018-10-23] MEDS: TEFLARO 600 MG in NS 250 ML IV SCH ×2 (01:22→14:50)
[2018-10-23] MEDS: DUONEB (A & A) INH SCH ×6 (03:14→22:56)
[2018-10-23 05:48] LABS: BASO# 0.03 X1000 (0.0-0.2); BASO% 0.2 % (0.0-0.8); HEMATOCRIT 28.5 % (42.0-52.0); HEMOGLOBIN 8.8 g/dL (14.0-18.0); IMM GRAN# 0.02 X1000 (0.0-0.04); IMM GRAN% 0.1 % (0.0-0.5); LYMPH# 1.98 X1000 (1.2-3.4); LYMPH% 13.2 % (20.5-51.1); MCH 27.3 PG (27-31); MCHC 30.9 g/dL (33-37); MCV 88.5 FL (81-99); MONO# 0.99 X1000 (0.11-0.59); MONO% 6.6 % (1.7-9.3); MPV 9.6 FL (7.4-10.4); NEUT# 11.03 X1000 (1.4-6.5); NEUT% 73.9 % (42.2-75.2); PLT 330 X1000 (130-400); RBC 3.22 XMIL (4.7-6.1); RDW 12.9 % (11.5-14.5); WBC 14.95 X1000 (4.8-10.8)
[2018-10-23] MEDS: SYNTHROID PO SCH (06:11)
[2018-10-23] MEDS: HUMULIN R SUBQ SCH ×4 (06:11→20:49)
[2018-10-23 06:12] LABS: AGAP 12; ALB/GLOB RATIO 0.8; ALBUMIN 2.6 g/dL (3.5-5.0); ALKALINE PHOSPHATASE 57 U/L (32-122); BUN 13 mg/dL (8-22); CALCIUM 8.4 mg/dL (8.8-10.2); CHLORIDE 105 mmol/L (98-107); COSMO 273; CREATININE 0.9 mg/dL (0.7-1.2); ESTIMATED GFR > 60; GLUCOSE 149 mg/dL (70-104); GOT 24 U/L (10-34); GPT < 5 U/L (10-44); MAGNESIUM 1.5 mg/dL (1.5-2.7); POTASSIUM 3.8 mmol/L (3.5-5.1); SODIUM 135 mmol/L (136-145); TCO2 18 mmol/L (25-35); TOTAL BILIRUBIN 0.46 mg/dL (0.20-1.00)
--- NOTE | 2018-10-23 07:24 | INFECTIOUS DISEASE PROGRESS NO ---
DATE: 10/23/2018 PRESENT ILLNESS: The patient was admitted to the hospital because of rhabdomyolysis secondary to daptomycin. This has all cleared up and the patient's CPK is normal and his renal function is normal also. The patient continues to have a leukocytosis and today it has been noticed that the patient's drainage from the right leg where he had a fracture fixed and had metal placed is increasing quite a bit, and I am concerned that the infection in the right leg is causing the patient's leukocytosis. MEDICATIONS: The patient is on ceftaroline. PHYSICAL EXAMINATION: Vital Signs: Temperature is 98.2 degrees, pulse 95, respirations 18, blood pressure 127/67. General: This is an ill-appearing elderly male. He is in no acute distress. Head/eyes/ears/nose/throat: He can hear my spoken words and see near objects. He does not have any white coating on his tongue. Neck: No meningismus. Lungs: Clear to auscultation. Cardiovascular: Heart rate is regular. There was a rare premature beat. Abdomen: Soft and nontender. Extremities: The patient has a PICC in the right arm. The site is not swollen or red. The patient's right leg is having increasing serosanguineous drainage from the incision. Neurologic: The patient is awake. He can move his extremities. There is no tremor. LAB AND X-RAY: There is no new radiographic study. [place] [address], hemoglobin 8.8, and platelet count of 330,000. Creatinine is 0.9. GFR is greater than 60. CK is 116. ASSESSMENT AND PLAN: Patient has methicillin-resistant Staph aureus bacteremia and also an infection of his right leg. I am concerned that the drainage coming from the leg is increasing. This may be the cause of the patient's leukocytosis. In any event, I am going to continue ceftaroline and discuss with Dr. Arias about the leukocytosis and increasing drainage from the leg. COMORBIDITIES: He is elderly. He is a diabetic and he had an adverse reaction to daptomycin. Patient fractured his leg and he required to have the fracture fixed and metal was placed on the bone. cc: Gonzalo Lane MD
[2018-10-23] MEDS: MS CONTIN PO SCH ×2 (08:16→20:49)
[2018-10-23] MEDS: SODIUM CHLORIDE 0.9% INJ SCH (08:16)
[2018-10-23] MEDS: VITAMIN B-12 PO SCH (08:16)
[2018-10-23] MEDS: PROTONIX IV SCH (08:16)
[2018-10-23] MEDS: SINEMET 25/100 PO SCH ×4 (08:16→20:48)
--- NOTE | 2018-10-23 14:23 | PROGRESS NOTE ---
DATE: 10/23/2018 INTERVAL HISTORY: No acute overnight events. His pulse was in the 90s to 100s. The patient is feeling better. He is eating his meals. The patient's is at bedside. She suggests that he is still not totally back to his baseline but he is a little better. He is eating better now. We discussed about his right leg tibia-fibula wound drainage. We also discussed about necrotic pressure ulcer on the right heel. We discussed about awaiting blood culture results and the fact that he would need long-term antibiotics for previous history of MRSA bacteremia and he could not tolerate daptomycin. CURRENT VITAL SIGNS: Temperature of 98.8 degrees, pulse 102 per minute, respiratory rate 21 per minute, blood pressure 93/73, saturating 100% on room air. PHYSICAL EXAMINATION: General: Does not appear in any acute distress. Oral cavity is moist. He is eating and there are some food particles. Lungs: Air entry bilaterally equal. No wheeze, rhonchi, or crackles. Cardiovascular: S1 and S2 normal. No murmur, rub, or gallop. He does have a left-sided AICD or pacemaker. Abdomen: Soft and nontender. Lower Extremities: He had a wound of previous tibia-fibula fracture surgical intervention on the right upper leg, anterior aspect. The incision is draining serosanguineous discharge which is cultured by infectious disease. He also has about a 5 cm in diameter round black eschar, ischemic ulcer affecting the right heel. He has general tremulousness and rigidity because of his Parkinson's disease. He has a urine catheter which is making 1200 mL of urine over the last 24 hours. LABS: Suggestive of persistent leukocytosis, normocytic anemia, normal platelet count, hyponatremia, low bicarbonate, normal kidney function. His blood sugars are mostly in acceptable range. MICROBIOLOGY: No positive culture data to date. ASSESSMENT AND PLAN: 1. Acute metabolic encephalopathy on presentation because of electrolyte disturbances as well as acute renal failure, now improved. The patient appears pretty close to his baseline. On my evaluation, however, does think that he still has intermittent spells of not being himself. I will continue to monitor. On admission, his CT scan of head was unremarkable. Eventually, he might need MRI of his brain. 2. Sepsis, due to likely right leg previous surgical wound site infection contributing to leukocytosis. Orthopedics has been consulted. I will await final results of the wound culture and sensitivity. Continue intravenous ceftaroline as per infectious disease recommendation. 3. Acute renal failure secondary to rhabdomyolysis due to intravenous daptomycin use which he was taking at home for his methicillin-resistant Staphylococcus aureus bacteremia on previous admission, now resolved. Continue Villarreal catheter and close monitoring of his input and output. 4. Right heel ischemic ulcer. Currently, it is not open and not draining. We will continue to monitor. We will continue to have soft padding to avoid further pressure ulcer injury. Eventually, he might need surgical evaluation. Currently, it does not appear infected. 5. Others. Continue atorvastatin for hyperlipidemia, carbidopa/levodopa for Parkinson's disease, furosemide and metoprolol for his history of heart failure with a reduced ejection fraction, venlafaxine for his insomnia. I will add olanzapine and other medications including Entresto, amitriptyline later on as tolerated. Plan of care was discussed with the patient and his at bedside. All of their questions have been answered satisfactorily. His is the surrogate decision-maker. cc: Travis Wren MD
[2018-10-23] MEDS: LIPITOR PO SCH (20:48)
[2018-10-23] MEDS: EFFEXOR PO SCH (20:48)
[2018-10-24] MEDS: TEFLARO 600 MG in NS 250 ML IV SCH ×2 (01:07→15:25)
--- NOTE | 2018-10-24 03:57 | INFECTIOUS DISEASE PROGRESS NO ---
DATE: 10/23/2018 ADDENDUM TO PROGRESS NOTE: I discussed the patient's case with Dr. Arias. If it turns out that the patient's right leg is infected and there appears to be no abscess to drain, and the metal will need to stay in until the patient's fracture is healed, and once it is healed, then if the leg is still draining, then the metal can come out if the metal is infected. My plan will be to continue treating with ceftaroline and then eventually switch over to long-term oral antibiotics with the hope that the fracture will heal and if the metal appears to be infected, then as mentioned above, the metal can be removed. cc: Gonzalo Lane MD
[2018-10-24] MEDS: DUONEB (A & A) INH SCH ×6 (04:29→23:21)
[2018-10-24] MEDS: HUMULIN R SUBQ SCH ×4 (06:01→21:11)
[2018-10-24] MEDS: SYNTHROID PO SCH (06:01)
--- NOTE | 2018-10-24 07:26 | INFECTIOUS DISEASE PROGRESS NO ---
DATE: 10/24/2018 PRESENT ILLNESS: The patient has a methicillin-resistant Staph aureus bacteremia and an associated infection of his right leg with probable involvement of the bone and metal in the leg. The patient also has leukocytosis, which I think could be due to the continued infection in the right leg. MEDICATIONS: The patient was on daptomycin but because of rhabdomyolysis, was switched to ceftaroline. PHYSICAL EXAMINATION: Vital Signs: Temperature is 98.7 degrees, pulse 85, respirations 16, blood pressure 124/59. General: This is an ill-appearing elderly male. He is in no acute distress. Head/eyes/ears/nose/throat: He can hear my spoken words and see near objects. He does not have any white coating of his tongue. Neck: No meningismus. Lungs: Clear to auscultation. Cardiovascular: Heart rate is regular. Abdomen: Soft and nontender. Extremities: Patient has a PICC in his right arm. The site is not swollen or erythematous. The patient's right leg continues to have a serosanguineous drainage. Neurologic: The patient is awake. He can move his extremities. There is no tremor. LAB AND X-RAY: There is no new lab for today and no new radiographic study for today. ASSESSMENT AND PLAN: Patient has methicillin-resistant Staph aureus bacteremia with an associated methicillin-resistant Staph aureus infection of the right leg which most likely involves bone and the metal plate that was necessary to put in because of the patient's fracture of the leg. My plan is to continue with ceftaroline. Yesterday, I talked with Dr. Arias and I agree with what he said. The patient will need to keep in the plate until such time as the fracture heals and then after that, if it still appears that the leg is infected, then the metal can come out. Therefore my plan will be to treat for a total of 8 weeks with antibiotics, in this case ceftaroline. Also I am hoping that with continued antibiotic treatment, the white count will come down also. I took a culture from the patient's leg yesterday and I am waiting for the results to see if antibiotic treatment may need to be changed. COMORBIDITIES: Patient is elderly and he is a diabetic. He had an adverse reaction to daptomycin, namely elevated CPK caused from rhabdomyolysis. The patient does have a fractured leg and unfortunately metal is in place and will need to stay on the bone until the fracture heals. Eventually, the plan is to hope that the plate will be able to be taken out when the fracture heals. cc: Gonzalo Lane MD MTDD
[2018-10-24] MEDS: MS CONTIN PO SCH ×2 (08:40→21:09)
[2018-10-24] MEDS: VITAMIN B-12 PO SCH (08:40)
[2018-10-24] MEDS: LASIX PO SCH (08:40)
[2018-10-24] MEDS: CENTRUM SILVER PO SCH (08:40)
[2018-10-24] MEDS: SINEMET 25/100 PO SCH (08:40)
[2018-10-24] MEDS: PROTONIX IV SCH (08:41)
[2018-10-24] MEDS: LOPRESSOR PO SCH (08:41)
--- NOTE | 2018-10-24 12:44 | PROGRESS NOTE ---
DATE: 10/24/2018 INTERVAL HISTORY: No acute overnight events. SUBJECTIVE: The patient continues to have confusion and some memory issues as reported by the at bedside. I discussed with them about delirium. I discussed with them about dementia. I also discussed with them about Parkinson disease, which increases risk of Lewy body dementia, answered all of her questions. I also discussed with him about possibly involving neurologist. Currently after my discussion with Infectious Disease, I learned that Orthopedics were planning to keep the plate, keeping the bone to allow fracture healing. VITALS: Currently temperature of 98.7 degrees, pulse 97, respiratory rate 17, blood pressure 120/86. He is saturating 99% on room air. PHYSICAL EXAMINATION: General: Does not appear in acute distress. He is alert. He answers questions; however, he does have lapses in memory and he often times waits for his to respond. Cardiovascular: S1, S2 normal. No murmur, rub, or gallop. He has left-sided AICD or pacemaker. Respiratory: Air entry bilaterally equal. No wheeze, rhonchi or crackles. Abdomen: Soft, nontender. Lower Extremities: He has a wound of previous tibia-fibula fracture surgical intervention on the right upper leg anterior aspect. The incision is draining serosanguineous discharge which is minimal. It is not soaking the entire dressing. He has about 5 cm diameter round black pressure ulcer off his right heel with eschar formation. LABS: No CBC or BMP today. ASSESSMENT AND PLAN: 1. Acute metabolic encephalopathy because of electrolyte abnormalities. Acute renal failure, now slightly improved. However, he continues to have confusion and memory lapses. He is alert, but he is not entirely oriented. His CT scan of the head on admission was unremarkable. This could be hyperactive delirium, complicated by acute illness, setting off dementia on top of his baseline Parkinson disease. Considering his automatic implantable cardioverter defibrillator or pacemaker, he may not be able to get the MRI of the brain. I will consult Neurology on Saturday if he would need further diagnostic or intervention since he continues to have prolonged alteration in his mental status. 2. Sepsis due to right leg previous surgical wound site infection contributing to leukocytosis with previous history of methicillin-resistant Staphylococcus aureus bacteremia. Follow up with final results of culture and sensitivity from the wound. Continue intravenous ceftaroline as per Infectious Disease. 3. Acute renal failure secondary to rhabdomyolysis due to intravenous daptomycin use, which he was taking from methicillin-resistant Staphylococcus aureus bacteremia on previous admission, now resolved. Continue Villarreal catheter with close input and output monitoring. 4. Right heel ischemic pressure ulcers with intact skin, currently not draining. Continue soft padding to avoid further pressure ulcer injury, frequent repositioning. Currently the wound does not appear infected. 5. Others: Continue atorvastatin for hyperlipidemia, carbidopa/levodopa for Parkinson disease, metoprolol and Lasix for history of heart failure with reduced ejection fraction, with venlafaxine for insomnia. I will add olanzapine, Entresto, amitriptyline later on as tolerated. DISPOSITION: The patient remains inside [facility] for close monitoring of his cardiovascular status and encephalopathy. If he continues to improve eventually at the time of discharge, the patient's would like him to go to [facility]. I have discussed this plan with the mental health social worker. Currently, we are waiting for his leukocytosis to improve. cc: Travis Wren MD
--- NOTE | 2018-10-24 17:56 | CONSULTATION ---
DATE OF CONSULTATION: 10/24/2018 Mr. Umaña is 83 years old with baseline cognitive impairment and parkinsonism. I saw him in the hospital about 2 weeks ago. He did not have prominent parkinsonian features at that time. He was taking Sinemet and pramipexole. We stopped pramipexole and he did well. He is admitted this time and I am consulted for altered mental state. reports he has had periods of time talking about things that did not happen. For example, she reports when she came in this morning, he asked her if she had seen a young woman down the [address], because he had had a conversation with that woman and found out she was the new mayor and she had some children. He also reported standing with assistance to get to the bathroom. reports he has not stood in recent weeks. He has not had periods of altered awareness, unresponsiveness or unconsciousness. He has not had new focal neurologic problem. He has not reported headache. On my count, he has 20 items on his home medication list. Among these are amitriptyline 100 mg daily, morphine t.i.d., venlafaxine, olanzapine. He continues carbidopa/levodopa 25/100 q.i.d. Lab work this admission shows WBC count 15,000. Hematocrit down to 28.5%. Sodium 132 initially, partially corrected to 135. BUN was 58 on presentation and down to 13 recently. Blood sugars have been stable 130-206. We do not have urine drug screen this admission. Noncontrast CT of the head this admission was unremarkable and showed no changes compared to prior scan. On exam, Mr. Umaña is awake, alert, attentive. He is calm and appropriate now. He was oriented to all parameters except he could not think of the name of the month. He provided the correct day of the week and day of the month. Speech is not significantly dysarthric and is not parkinsonian. Language function is intact on brief bedside testing. Remote memory is fair. Recent memory is poor. Head and neck are unremarkable. Visual cooper are full. Tone is symmetric in the limbs. There is no resting tremor or other abnormal movement present now. He did well on finger-nose testing. I did not ask him to stand or walk. IMPRESSION: 1. Baseline cognitive impairment. This is based on 's history provided during prior hospitalization and confirmed today. 2. Longstanding parkinsonism. He has had some features of idiopathic Parkinson disease. He is not remarkably parkinsonian right now. 3. Recent delusions, possibly hallucinations. We discussed possibility that his dopaminergic medication might contribute to tendency to psychosis. We discussed amitriptyline further today, as discussed last time, with potential adverse anticholinergic effect on cognitive function. reports he stopped amitriptyline abruptly recently and did not tolerate that because of restlessness and sleeplessness. We might consider trying to taper amitriptyline more slowly. First, I will order to hold his carbidopa/levodopa dose and we will see how he does. If he becomes more parkinsonian, that medicine can be resumed. Would consider resume olanzapine if more delusions. If he tolerates being off of Sinemet, he may not require olanzapine. I do not have any other suggestion right now. Further plans will depend on his clinical course. Thanks for asking Neurology to see Mr. Umaña again. cc: MD ARNAV Ospina III
[2018-10-24] MEDS: LIPITOR PO SCH (21:09)
[2018-10-24] MEDS: EFFEXOR PO SCH (21:09)
[2018-10-25] MEDS: TEFLARO 600 MG in NS 250 ML IV SCH ×2 (03:15→13:42)
[2018-10-25] MEDS: DUONEB (A & A) INH SCH ×6 (03:33→23:05)
[2018-10-25 06:09] LABS: BASO# 0.04 X1000 (0.0-0.2); BASO% 0.2 % (0.0-0.8); EOS# 0.85 X1000 (0.0-0.7); EOS% 4.8 % (0.0-10.0); HEMATOCRIT 29.1 % (42.0-52.0); HEMOGLOBIN 9.2 g/dL (14.0-18.0); IMM GRAN# 0.04 X1000 (0.0-0.04); IMM GRAN% 0.2 % (0.0-0.5); LYMPH# 2.26 X1000 (1.2-3.4); LYMPH% 12.9 % (20.5-51.1); MCH 27.6 PG (27-31); MCHC 31.6 g/dL (33-37); MCV 87.4 FL (81-99); MONO# 1.03 X1000 (0.11-0.59); MONO% 5.9 % (1.7-9.3); MPV 9.9 FL (7.4-10.4); NEUT# 13.31 X1000 (1.4-6.5); PLT 299 X1000 (130-400); RBC 3.33 XMIL (4.7-6.1); RDW 12.8 % (11.5-14.5); WBC 17.53 X1000 (4.8-10.8)
[2018-10-25] MEDS: SYNTHROID PO SCH (06:41)
[2018-10-25] MEDS: HUMULIN R SUBQ SCH ×4 (06:41→22:09)
[2018-10-25] MEDS: LOPRESSOR PO SCH (09:22)
[2018-10-25] MEDS: MS CONTIN PO SCH ×2 (09:22→21:57)
[2018-10-25] MEDS: CENTRUM SILVER PO SCH (09:22)
[2018-10-25] MEDS: VITAMIN B-12 PO SCH (09:22)
[2018-10-25] MEDS: LASIX PO SCH (09:22)
[2018-10-25] MEDS: PROTONIX IV SCH (09:22)
--- NOTE | 2018-10-25 14:55 | PROGRESS NOTE ---
DATE: 10/25/2018 INTERVAL HISTORY: Continues to have loose, watery bowel movements, worsening leukocytosis. He did not sleep overnight and is very sleepy in the morning time. Neurology had seen the patient and had recommended getting a trial off discontinuation of carbidopa/levodopa to see if that helps resolve his psychosis, delirium or hallucinations. SUBJECTIVE: Patient is sleepy; however, with strong verbal stimuli he wakes up, but again lapses back into sleep. The patient's is at bedside. VITAL SIGNS: Currently temperature 98.6, pulse 95, respiratory rate 18, blood pressure 104/57, saturating 99% on room air. PHYSICAL EXAMINATION: General: Does not appear in any acute distress. He is drowsy, but arousable to strong verbal stimuli. Cardiovascular: S1, S2 normal. No murmur, rub or gallop. He has left-sided AICD pacemaker and on monitor he had a paced rhythm. Respiratory: Air entry bilaterally equal. No wheeze, rhonchi, crackles. Abdomen: Soft, nontender Lower Extremities: He has wound of previous tibia-fibula fracture, and surgical intervention on the right upper leg anterior aspect which is dressed and has some crusting over the incision site. No active drainage that I could see. He has about 5 cm diameter round plaque pressure ulcer on his right heel with what looks like eschar formation. LABS: Suggestive of leukocytosis of 17,000, hemoglobin of 9.2, platelet count of 299,000. Blood sugars are mostly in acceptable range. Microbiology culture from right leg is growing gram- positive cocci. ASSESSMENT AND PLAN: 1. Acute metabolic encephalopathy because of electrolyte abnormalities, acute renal failure on admission. He continues to have acute encephalopathy with intermittent periods of confusion and psychosis. This is likely in the setting of his baseline mild cognitive impairment, hospital-acquired delirium, altered sleep-wake cycle and/or medication induced. Neurology on board and has recommended taking off carbidopa/levodopa and assess his response. Depending on his response, we will consider adding carbidopa/levodopa back or adding olanzapine if he has psychosis. CT scan head was unremarkable. 2. Sepsis due to right leg surgical wound site infection contributing to leukocytosis with previous history of MRSA bacteremia. Continue intravenous ceftaroline as per ID. Follow up stool C difficile to rule out Clostridium difficile colitis contributing to leukocytosis. According to conversation of ID with Orthopedics, there is no plan of surgical intervention on his right leg which could be a potential source of infection. 3. Acute renal failure secondary to rhabdomyolysis due to intravenous daptomycin use on presentation, now resolved. Continue Villarreal catheter for close input and output monitoring. 4. Right heel ischemic pressure ulcer. Continue soft padding to avoid further pressures or injury and frequent repositioning. Does not appear infected and overlying tissue is intact. 5. Others: Continue atorvastatin for hyperlipidemia, carbidopa/levodopa for Parkinson disease, metoprolol and Lasix for history of heart failure with reduced ejection fraction, venlafaxine for insomnia. 6. Disposition: Patient remains in [facility] for close monitoring of his mental status. Cardiorespiratory status, plan of care were discussed with the patient's at bedside. All of her questions have been answered. cc: Travis Wren MD MTDD
[2018-10-25] MEDS: LIPITOR PO SCH (21:57)
[2018-10-25] MEDS: VANCOCIN PO SCH (21:58)
[2018-10-25] MEDS: EFFEXOR PO SCH (21:58)
[2018-10-26] MEDS: TEFLARO 600 MG in NS 250 ML IV SCH ×2 (03:20→13:03)
[2018-10-26] MEDS: VANCOCIN PO SCH ×4 (03:20→21:26)
[2018-10-26] MEDS: DUONEB (A & A) INH SCH ×6 (03:25→23:45)
[2018-10-26 06:23] LABS: AGAP 19; BUN 12 mg/dL (8-22); CALCIUM 8.5 mg/dL (8.8-10.2); CHLORIDE 99 mmol/L (98-107); COSMO 275; ESTIMATED GFR > 60; GLUCOSE 156 mg/dL (70-104); POTASSIUM 2.9 mmol/L (3.5-5.1); SODIUM 136 mmol/L (136-145); TCO2 18 mmol/L (25-35)
[2018-10-26] MEDS: HUMULIN R SUBQ SCH ×4 (06:35→21:26)
[2018-10-26] MEDS: SYNTHROID PO SCH (06:36)
[2018-10-26] MEDS ORDERED: MAGNESIUM SULFATE 2 GM/S.W.I. 2 GM/50 ML IVPB IV ONE (07:14)
[2018-10-26] MEDS ORDERED: POTASSIUM CHLORIDE 20 MEQ/SWI 20 MEQ/100 ML IVPB IV ONE (07:14)
[2018-10-26] MEDS: PROTONIX IV SCH (08:46)
[2018-10-26] MEDS: LR 1,000 ML IV SCH ×4 (09:03→21:27)
[2018-10-26] MEDS: FLAGYL 500 MG/NS 500 MG/100 ML IVPB IV SCH ×3 (09:18→21:27)
--- NOTE | 2018-10-26 09:43 | PROGRESS NOTE ---
DATE: 10/26/2018 INTERVAL HISTORY: The patient has progressively become more lethargic and he is very weak. 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 The patient's C. difficile antigen and toxin were positive and was started on p.o. vancomycin overnight. He has significant electrolyte abnormalities today as well. SUBJECTIVE: Patient is very lethargic. He is very drowsy and keeps his eyes open, and he states he is not feeling good. I discussed his critical condition with patient's . I explained to her that he has significantly deteriorated over the last month or two progressively and more so over the last couple of days. I explained to her that this could be in the setting of profound volume depletion, ongoing sepsis due to MRSA, right lower extremity wound infection, and now C. difficile enterocolitis. I explained to her that I am going to start him on intravenous fluid, electrolyte repletion. I am going to again discuss with infectious disease doctor about his course and getting an EKG and will repeat blood counts in the afternoon time. I answered all of her questions. She is in agreement. CURRENT VITAL SIGNS: Temperature of 98.3 degrees, pulse 97, respiratory rate 18, blood pressure 108/64, saturating 99% on room air. PHYSICAL EXAMINATION: General: Patient is very lethargic today. On strong verbal stimuli, he does open his mouth but again lapses back to sleep. Oral cavity is dry. Lungs: Air entry bilaterally equal. No wheeze, rhonchi, or crackles. Cardiovascular: S1, S2 normal. Regular. He has AICD pacemaker on the left chest. No murmur, rub, or gallop. Abdomen: Soft. It is tender, generalized. Active bowel sounds. Extremities: No lower extremity edema. He has a wound of previous tibia-fibula fracture surgical intervention on the right upper leg anterior aspect, which is dressed and has a serosanguineous discharge coming out of it. He also had about a 5 cm diameter, round ischemic pressure ulcer on his right heel with eschar formation. LABS: Suggestive of leukocytosis, which was yesterday. He does have hypokalemia, anion gap metabolic acidosis, and normal kidney function. ASSESSMENT AND PLAN: 1. Acute encephalopathy because of currently sepsis because of methicillin-resistant Staphylococcus aureus from what appears to be a right surgical wound infection, Clostridium difficile colitis, electrolyte abnormalities. We will continue to address underlying issue. Neurology has been on board and they have suggested taking him off Sinemet as previously he had psychosis. I will consider re-adding it since he has become more lethargic today. His CT scan head on admission was unremarkable. 2. Sepsis due to right leg surgical wound site infection with previous methicillin-resistant Staphylococcus aureus bacteremia. Continue intravenous ceftaroline as per infectious disease recommendation. 3. Acute Clostridium difficile enterocolitis, severe. I will get abdominal x-ray to rule out any toxic megacolon. I will start him on 1 L of lactated Ringer bolus and continuous intravenous infusion. I will add intravenous metronidazole to oral vancomycin considering severe Clostridium difficile colitis. 4. Right heel ischemic pressure ulcer. Continue soft padding to avoid further pressure injury, and frequent repositioning. It does not appear infected at the moment. 5. Other issues. Acute renal failure secondary to rhabdomyolysis due to intravenous daptomycin use on presentation is resolved. Continue Villarreal catheter for close input and output monitoring; continue atorvastatin for hyperlipidemia, consider adding carbidopa/levodopa for Parkinson's disease, continue metoprolol for history of heart failure with reduced ejection fraction and hold Lasix for now, continue venlafaxine for insomnia. 6. Disposition. The patient remains inside [facility] for close monitoring of his cardiac respiratory status. His condition is critical. I have explained to his at bedside about his deteriorating health condition and have answered all of her questions. cc: Travis Wren MD
[2018-10-26] MEDS: POTASSIUM CHLORIDE 20 MEQ/SWI 20 MEQ/100 ML IVPB IV SCH ×2 (10:26→14:43)
[2018-10-26] MEDS: KLOR-CON PO SCH ×4 (10:31→18:43)
--- NOTE | 2018-10-26 11:38 | Diag Imaging Result Doc PS360 ---
EXAM: ABDOMEN FLAT/UPRIGHT 10/26/2018 HISTORY: Rule out toxic megacolon TECHNIQUE: Flat and upright abdomen COMMENT: There is some colonic gas but there is very little distention except in the transverse colon. The descending colon is largely nondistended. There is no evidence of small bowel or gastric distention. There is no evidence organomegaly or mass. There are numerous phleboliths in the pelvis. IMPRESSION: Nonspecific abdomen. Electronically signed by Arnaldo Isaacs 10/26/2018 11:35 AM
--- NOTE | 2018-10-26 13:11 | PROGRESS NOTE ---
DATE: 10/26/2018 ADDENDUM: I reevaluated him again. Now he is awake, but he has a staring look on his face. He is denying any complaints though, but appears confused and in what appears to be hypoactive delirium. OBJECTIVE: Vitals: Currently reveals temperature of 97 degrees, pulse 99, respiratory rate 18, blood pressure 103/52, saturating 99% on room air. General: He is awake, but not interactive. Eyes: Keeps his eyes open. Abdomen: Does not have abdominal tenderness. ASSESSMENT: I discussed with the about findings of x-ray which only suggested nonspecific bowel gas pattern. I also discussed with them about right heel pressure ulcer that is not open and it may not need surgical intervention at the moment, and we would eventually consider consulting a surgeon. However, considering his critical condition and persistent critical illness, I would go ahead and consult surgeons to have them involved if he would need potential debridement in the future. cc: Travis Wren MD
[2018-10-26] MEDS: CENTRUM SILVER PO SCH (13:15)
[2018-10-26] MEDS: MS CONTIN PO SCH ×2 (13:16→21:26)
[2018-10-26] MEDS: LOPRESSOR PO SCH (13:16)
[2018-10-26] MEDS: VITAMIN B-12 PO SCH (13:16)
[2018-10-26 14:10] LABS: BASO# 0.03 X1000 (0.0-0.2); BASO% 0.1 % (0.0-0.8); EOS# 0.31 X1000 (0.0-0.7); EOS% 1.4 % (0.0-10.0); HEMATOCRIT 29.2 % (42.0-52.0); HEMOGLOBIN 9.1 g/dL (14.0-18.0); IMM GRAN% 0.5 % (0.0-0.5); LYMPH# 1.58 X1000 (1.2-3.4); LYMPH% 7.2 % (20.5-51.1); MCH 27.4 PG (27-31); MCHC 31.2 g/dL (33-37); MONO# 1.12 X1000 (0.11-0.59); MONO% 5.1 % (1.7-9.3); MPV 9.4 FL (7.4-10.4); NEUT# 18.93 X1000 (1.4-6.5); NEUT% 85.7 % (42.2-75.2); PLT 326 X1000 (130-400); RBC 3.32 XMIL (4.7-6.1); RDW 12.9 % (11.5-14.5); WBC 22.07 X1000 (4.8-10.8)
--- NOTE | 2018-10-26 14:27 | GENERAL SURGERY CONSULTATION ---
DATE: 10/26/2018 HISTORY OF PRESENT ILLNESS: This is an 83-year-old gentleman admitted for bacteremia with UTI. He has also had a recent orthopedic procedure. He has got a decubitus wound on the right heel. I was consulted for evaluation of this. MEDICAL HISTORY: Diabetes, MRSA, a recent tibia fracture, Parkinson's, squamous cell carcinoma, coronary artery disease, hypertension, hyperlipidemia, congestive heart failure, history of colon cancer. SURGICAL HISTORY: AICD, colon surgery, cholecystectomy, ORIF of the right tibia, coronary stent, squamous cell carcinoma excision. MEDICATIONS: Reviewed. REVIEW OF SYSTEMS: Ten point negative other than what is mentioned in the HPI. PHYSICAL EXAMINATION: Vital Signs: Temperature 97.7 degrees, pulse 99, blood pressure 103/52, oxygen saturation is 99%. General: This is frail appearing gentleman who is alert, in no acute distress. HEENT: There is no scleral icterus. Cardiovascular: Normal rate. Pulmonary: No increased work of breathing. Abdomen: Soft. Skin: Warm dry. Psychiatric: Appropriate affect. Neurologic: Generalized slowing. Peripheral Vascular: Well perfused. Musculoskeletal Examination: There is a right dry eschar overlying the heel. No exposed bone. No cellulitis. No purulence. LABORATORY DATA: White count 17, hematocrit is 29. Creatinine is 1.0, glucose 150s to 170s. ASSESSMENT/PLANS: This is an 83-year-old gentleman with a decubitus wound to his right heel. It is dry and clean. There is no cellulitis or signs of infection. We will start Santyl debridement. He may ultimately require excisional debridement but we will allow him to stabilize from his other medical issues. cc: Jocelynn Fernandez MD [facility]
[2018-10-26 14:35] LABS: AGAP 19; BUN 13 mg/dL (8-22); CALCIUM 8.5 mg/dL (8.8-10.2); CHLORIDE 101 mmol/L (98-107); COSMO 278; ESTIMATED GFR > 60; GLUCOSE 175 mg/dL (70-104); MAGNESIUM 1.6 mg/dL (1.5-2.7); PHOSPHORUS 2.7 mg/dL (2.7-4.5); POTASSIUM 3.5 mmol/L (3.5-5.1); SODIUM 137 mmol/L (136-145); TCO2 17 mmol/L (25-35)
[2018-10-26] MEDS: SANTYL OINT TOP SCH (16:35)
[2018-10-26] MEDS: LIPITOR PO SCH (21:26)
[2018-10-26] MEDS: EFFEXOR PO SCH (21:26)
[2018-10-27] MEDS: LR 1,000 ML IV SCH ×3 (01:16→08:56)
[2018-10-27] MEDS: TEFLARO 600 MG in NS 250 ML IV SCH ×2 (01:17→16:16)
[2018-10-27] MEDS: VANCOCIN PO SCH ×4 (01:17→21:25)
[2018-10-27] MEDS: FLAGYL 500 MG/NS 500 MG/100 ML IVPB IV SCH (02:00)
[2018-10-27] MEDS: DUONEB (A & A) INH SCH ×6 (03:30→23:10)
[2018-10-27 05:52] LABS: BASO# 0.02 X1000 (0.0-0.2); BASO% 0.1 % (0.0-0.8); EOS# 0.52 X1000 (0.0-0.7); EOS% 2.9 % (0.0-10.0); HEMATOCRIT 29.3 % (42.0-52.0); HEMOGLOBIN 9.1 g/dL (14.0-18.0); IMM GRAN# 0.06 X1000 (0.0-0.04); IMM GRAN% 0.3 % (0.0-0.5); LYMPH# 2.01 X1000 (1.2-3.4); MCHC 31.1 g/dL (33-37); MCV 86.9 FL (81-99); MONO# 0.95 X1000 (0.11-0.59); MONO% 5.2 % (1.7-9.3); MPV 9.8 FL (7.4-10.4); NEUT# 14.64 X1000 (1.4-6.5); NEUT% 80.5 % (42.2-75.2); PLT 313 X1000 (130-400); RBC 3.37 XMIL (4.7-6.1); RDW 12.9 % (11.5-14.5)
[2018-10-27] MEDS: HUMULIN R SUBQ SCH ×4 (06:05→21:25)
[2018-10-27] MEDS: SYNTHROID PO SCH (06:05)
[2018-10-27 06:20] LABS: AGAP 13; BUN 14 mg/dL (8-22); CALCIUM 8.5 mg/dL (8.8-10.2); CHLORIDE 110 mmol/L (98-107); COSMO 288; CREATININE 0.9 mg/dL (0.7-1.2); ESTIMATED GFR > 60; GLUCOSE 172 mg/dL (70-104); POTASSIUM 3.9 mmol/L (3.5-5.1); SODIUM 142 mmol/L (136-145); TCO2 19 mmol/L (25-35)
--- NOTE | 2018-10-27 07:26 | EKG Report ---
Test Performed on : 10/26/2018 10:05:39 AM Test Reason : Follow up heart rhythm Blood Pressure : / mmHG Vent. Rate : 097 BPM Atrial Rate : 097 BPM P-R Int : 160 ms QRS Dur : 140 ms QT Int : 426 ms P-R-T Axes : 042 060 077 degrees QTc Int : 541 ms Atrial-sensed ventricular-paced rhythm Abnormal ECG When compared with ECG of 21-OCT-2018 09:54, Vent. rate has decreased BY 4 BPM Unconfirmed Result
--- NOTE | 2018-10-27 08:49 | INFECTIOUS DISEASE PROGRESS NO ---
DATE: 10/27/2018 PRESENT ILLNESS: The patient has a methicillin-resistant Staphylococcus aureus and an associated methicillin-resistant Staphylococcus aureus infection of his right leg including metal and bone in the leg. The patient has leukocytosis and now has tested positive for Clostridium difficile toxin and antigen. The patient's clostridial infection may be responsible for the leukocytosis. MEDICATIONS: The patient is on ceftaroline to treat the methicillin-resistant Staphylococcus aureus bacteremia and right leg infection. The patient already is on vancomycin for C. difficile diarrhea. I have discontinued Flagyl and placed the patient on Dificid. PHYSICAL EXAMINATION: Vital Signs: Temperature is 98.3 degrees, pulse 98, respirations 12, blood pressure 128/55. General: This is a fairly healthy-appearing, elderly male. He is in no acute distress. Head, Eyes, Ears, Nose, and Throat: He can hear my spoken words and see near objects. There are no white patches on his tongue. Neck: No meningismus. Lungs: Clear to auscultation. Cardiovascular: Regular heart rate. Abdomen: Soft and nontender. Extremities: The patient has a PICC in his right arm. The site is not draining or tender. The patient's right leg has a dressing on it. There is no drainage coming from the leg at this time. Neurologic: The patient is awake. The patient can move his extremities. There is no tremor. LAB AND X-RAY: The patient's CBC shows a white count of 18,200, hemoglobin 9.1, platelet count 313,000. Creatinine is 0.9. GFR is greater than 60. The patient's stool toxin and antigen are both positive. ASSESSMENT AND PLAN: The patient has methicillin-resistant Staphylococcus aureus bacteremia and infection of his leg. I plan to treat with ceftaroline to treat both of these infections. I plan to treat a total of 8 weeks and then probably put the patient on a low dose of an oral antistaphylococcal antibiotic. The PO vancomycin for the Clostridium difficile diarrhea, I agree with. I have substituted Dificid for intravenous Flagyl. COMORBIDITIES: He is elderly and is diabetic. He had an adverse reaction to daptomycin, namely elevated CPK, but that has cleared up and the kidney function is doing well. The patient fractured his leg and the patient has metal in it. cc: Gonzalo Lane MD [facility]
[2018-10-27] MEDS: MAGNESIUM SULFATE 2 GM/S.W.I. 2 GM/50 ML IVPB IV SCH ×2 (08:57→10:18)
[2018-10-27] MEDS: KLOR-CON PO SCH ×2 (08:58→12:19)
[2018-10-27] MEDS: MAG-OX PO SCH ×2 (08:58→21:25)
[2018-10-27] MEDS: PROTONIX IV SCH (08:58)
[2018-10-27] MEDS: MS CONTIN PO SCH ×2 (08:58→21:25)
[2018-10-27] MEDS: LOPRESSOR PO SCH (08:58)
[2018-10-27] MEDS: VITAMIN B-12 PO SCH (08:58)
[2018-10-27] MEDS: SANTYL OINT TOP SCH (08:59)
[2018-10-27] MEDS: ASPIRIN EC PO SCH (08:59)
[2018-10-27] MEDS: DIFICID PO SCH ×2 (08:59→21:25)
--- NOTE | 2018-10-27 12:23 | PROGRESS NOTE ---
DATE: 10/27/2018 INTERVAL HISTORY: No acute events overnight. SUBJECTIVE: Patient is feeling much better today. He is awake, alert and interactive. He ate a little bit of food. I discussed with him about his course with his at bedside. I answered all of her questions. The patient denies any nausea, vomiting. He had a bowel movement early in the morning time. PHYSICAL EXAMINATION: General: He is awake, alert, not in any acute distress. Vital Signs: Currently vitals suggest temperature of 98.7 degrees, pulse 94, respiratory rate 16, blood pressure 130/61, saturating 100% on room air. Mouth: Oral cavity is moist. Lungs: No wheeze, rhonchi, or crackles. Cardiovascular: S1, S2 normal. Regular. He has AICD pacemaker on the left chest. No murmur, rub, or gallop. Abdomen: Soft, mild tenderness. However, improved from yesterday. Active bowel sounds. No lower extremity edema. Extremities: He has a wound off previous tibia-fibula fracture surgical intervention on right upper leg anterior aspect, which is dressed. He also has about 5 cm diameter round ischemic pressure ulcer of the right heel with pressure formation and Surgery Team has recommended Santyl dressing for it. LABORATORY: Suggestive of improving leukocytosis. Normocytic anemia. Normal platelet count. Electrolytes suggestive of hyperchloremia. Low bicarbonate. Normal kidney function. Hyperglycemia and hypomagnesemia, which is being repleted. MICROBIOLOGY: C. difficile antigen and toxin have been positive. ASSESSMENT AND PLAN: 1. Acute encephalopathy because of sepsis due to MRSA from right surgical wound infection, C. difficile colitis, electrolyte abnormalities, improving; however, intermittently he becomes confused. Neurology has been on board and has recommended keeping him off his carbidopa- levodopa as it may be contributing to his psychosis. CT scan head on admission was unremarkable. 2. Sepsis due to right surgical wound site infection with previous MRSA bacteremia, acute C. difficile enterocolitis, severe. Continue intravenous ceftaroline as per Infectious Disease. Continue p.o. vancomycin with p.o. fidaxomicin as per Infectious Disease recommendations. 3. Right heel ischemic pressure ulcer. Continue soft padding and Santyl dressing as per Surgery recommendation. He may eventually need debridement once his acute issues resolve in the future. 4. Others. Acute renal failure secondary to rhabdomyolysis due to intravenous daptomycin use on presentation, resolved; continue Villarreal catheter for close input and output monitoring; continue atorvastatin for hyperlipidemia; continue to hold carbidopa-levodopa for his Parkinson disease considering it might be contributing to his psychosis and he currently does not have a lot of parkinsonian features; continue metoprolol for history of heart failure with reduced ejection fraction and add back Lasix tomorrow as tolerated; continue venlafaxine for insomnia. 5. Disposition. The patient condition remains tenuous in general and he would require CIC monitoring. Plan of care discussed with the patient's at bedside. All of her questions have been answered. cc: Travis Wren MD
--- NOTE | 2018-10-27 13:36 | GENERAL SURGERY PROGRESS NOTE ---
DATE: 10/27/2018 SUBJECTIVE: Doing okay. Dressing changes are going well. He has got offloading boots. No fevers. No tachycardia documented. OBJECTIVE: General: He is alert, chronically ill gentleman. Extremities: He has got heel lift suspension boots and dressing that is clean on his right foot. LABORATORY DATA: White count is 18, hematocrit 29, creatinine 0.9. ASSESSMENT/PLAN: An 83-year-old gentleman with decubitus wound of his right heel. Continue Santyl, local wound care. When he is more stable medically, we may plan excisional debridement to promote wound healing, but right now I would hold off as he does not have neuropathy and would most likely need some degree of sedation for this. cc: Jocelynn Fernandez MD
[2018-10-27] MEDS: CENTRUM SILVER PO SCH (14:15)
--- NOTE | 2018-10-27 16:54 | PROGRESS NOTE ---
DATE: 10/27/2018 Mr. Umaña is awake, alert, attentive. He seems much brighter than when I saw him on Saturday. He does not appear significantly parkinsonian right now. at the bedside agrees he looks much better today. He has not had any more definite delusions or hallucinations. He was quiet and hardly spoke for long periods of time over the weekend, but he is more animated and talking more appropriately in conversation today. I do not have any new suggestion. I believe that he is now off of all of his antiparkinsonian medications. We can continue to follow and hope he continues to do well. cc: Shaina Kline III, MD
[2018-10-27] MEDS: LIPITOR PO SCH (21:25)
[2018-10-27] MEDS: EFFEXOR PO SCH (21:26)
[2018-10-28] MEDS: VANCOCIN PO SCH ×3 (02:23→15:45)
[2018-10-28] MEDS: TEFLARO 600 MG in NS 250 ML IV SCH ×2 (02:23→15:45)
[2018-10-28] MEDS: DUONEB (A & A) INH SCH ×6 (03:15→22:35)
[2018-10-28] MEDS: SYNTHROID PO SCH (06:28)
[2018-10-28] MEDS: HUMULIN R SUBQ SCH ×4 (06:28→23:57)
--- NOTE | 2018-10-28 08:41 | INFECTIOUS DISEASE PROGRESS NO ---
DATE: 10/28/2018 PRESENT ILLNESS: The patient has methicillin-resistant Staph aureus bacteremia and an associated methicillin-resistant Staph aureus infection involving the right leg including metal and bone. MEDICATIONS: The patient is on ceftaroline for the methicillin-resistant Staph aureus infection and the patient is on vancomycin and Dificid for the Clostridium difficile diarrhea. PHYSICAL EXAMINATION: Vital Signs: Temperature is 98.1 degrees, pulse 92, respirations 13, blood pressure 138/68. General: This is a fairly healthy-appearing, elderly male. He is in no acute distress. Head, eyes, ears, nose, and throat: He can hear my spoken words and see near objects. He does not have any white patches on his tongue. Neck: No stiffness. Lungs: Clear to auscultation. Cardiovascular: Heart rate is regular. Abdomen: Soft and nontender. Extremities: The patient has a PICC in his right arm. The site is not swollen or tender. The patient's right leg at this time is not draining at all and there is no erythema in the leg. Neurologic: Patient is alert. He can carry on a coherent conversation. He can move his extremities. There is no tremor. LAB AND X-RAY: There is no new lab or radiology study for today. ASSESSMENT AND PLAN: The patient has a staph bacteremia and right leg infection. He also has C. diff diarrhea. My plan is to continue ceftaroline for the staph infection and continue PO vancomycin and Dificid for the diarrhea. COMORBIDITIES: The patient is elderly and he is a diabetic and he had an adverse reaction to daptomycin. The patient initially fractured his leg and it was necessary to have metal in his leg to stabilize the fracture. cc: Gonzalo Lane MD [facility]
[2018-10-28] MEDS: VITAMIN B-12 PO SCH (09:05)
[2018-10-28] MEDS: LOPRESSOR PO SCH (09:05)
[2018-10-28] MEDS: CENTRUM SILVER PO SCH (09:05)
[2018-10-28] MEDS: DIFICID PO SCH ×2 (09:06→23:56)
[2018-10-28] MEDS: PROTONIX IV SCH (09:06)
[2018-10-28] MEDS: MS CONTIN PO SCH ×2 (09:06→23:56)
[2018-10-28] MEDS: MAG-OX PO SCH ×2 (09:06→23:56)
[2018-10-28] MEDS: ASPIRIN EC PO SCH (09:06)
[2018-10-28] MEDS: SANTYL OINT TOP SCH (09:07)
--- NOTE | 2018-10-28 11:34 | PROGRESS NOTE ---
DATE: 10/28/2018 Mr. Umaña looks calm today. I observed him participating attentively with physical therapy. I discussed current and recent medications with his at the bedside. We reviewed consideration for reducing or stopping amitriptyline gradually as tolerated due to potential adverse anticholinergic effect on cognitive function. I suggested to her that he not use diphenhydramine often. She reports he has taken [id number] medicine with diphenhydramine on occasion. She does not recall cholinesterase inhibitor trial and I think that could be considered soon. If he becomes more parkinsonian in appearance, we can consider resuming Sinemet. Thanks for asking Neurology to see Mr. Umaña. cc: MD ARNAV Ospina III
[2018-10-28] MEDS ORDERED: DUONEB (A & A) ONE (15:18)
--- NOTE | 2018-10-28 15:39 | PROGRESS NOTE ---
DATE: 10/28/2018 INTERVAL HISTORY: No acute events overnight. SUBJECTIVE: The patient denies any new complaints. He is feeling good, not in any acute distress. He had good sleep and currently also he is feeling sleepy. VITAL SIGNS: Temperature 98.7 degrees, pulse 91, respiratory rate 20, blood pressure 118/66, and saturating 98% on room air. PHYSICAL EXAMINATION: Not in any acute distress. HEENT: Oral cavity is dry. Lungs: Air entry bilaterally equal. No wheeze, rhonchi, or crackles. Cardiovascular: S1, S2 normal. Regular. He has AICD pacemaker on left chest. No murmur, rub, or gallop. Abdomen: Soft. Mild generalized tenderness which is inconsistent. Active bowel sounds. No lower extremity edema. Extremities: He has a wound of previous tibia-fibula surgical fracture intervention on the right upper anterior leg which is dressed. He also has about 5 cm in diameter round ischemic pressure ulcer of the right heel with dressing on. Surgery Team has been consulted. LABORATORY: Input and output suggestive of -400 mL yesterday and -60 mL today so far. LABORATORY: No CBC or BMP today. I will follow up with magnesium level tomorrow. ASSESSMENT AND PLAN: 1. Acute encephalopathy because of sepsis due to MRSA prior to presentation, from right surgical wound infection with MRSA, C diff enterocolitis, electrolyte abnormalities. Now improving. Neurology is on board and has recommended keeping him off his carbidopa levodopa considering he did not have significant parkinsonian features, and the medicine could be contributing to his psychosis. 2. Sepsis due to right surgical wound site infection with methicillin-resistant Staphylococcus aureus and previous MSSA bacteremia. Also, now with acute C difficile colitis. Continue intravenous ceftaroline as per ID. Their initial plan was to continue antibiotics for a total of 8 weeks. The first day of last negative blood culture was 10/08. Also, continue p.o. vancomycin with fidaxomicin for acute Clostridium difficile Enterocolitis. 3. Right heel ischemic pressure ulcer. Continue soft padding and central dressing as per surgery recommendation. He may eventually need debridement once his acute issues resolve. 4. Others: Continue atorvastatin for hyperlipidemia. Continue metoprolol for history of heart failure with reduced ejection fraction. Continue venlafaxine for insomnia. Continue Villarreal catheter for close input and output monitoring with plans to remove it tomorrow. 5. Disposition: I will transfer patient from [facility] to medical floor. Unfortunately, he would need long-term intravenous ceftaroline, which a lot of rehab facility would not like to pay for as informed by the social work team. So patient might be a candidate for long- term acute care facility. Social Work team is going to contact the patient's about it. I am anticipating discharge in the next 24 to 48 hours depending on his labs tomorrow. Plan of care discussed with him and his at bedside who is surrogate decision maker. All of their questions have been answered. cc: Travis Wren MD [facility]TDD
[2018-10-28] MEDS: LOVENOX SUBQ SCH (16:37)
[2018-10-28] MEDS: EFFEXOR PO SCH (23:56)
[2018-10-28] MEDS: LIPITOR PO SCH (23:56)
[2018-10-29] MEDS: DUONEB (A & A) INH SCH ×6 (02:57→22:55)
[2018-10-29] MEDS: VANCOCIN PO SCH ×5 (03:13→20:38)
[2018-10-29] MEDS: TEFLARO 600 MG in NS 250 ML IV SCH ×2 (03:19→14:45)
[2018-10-29] MEDS: SYNTHROID PO SCH (06:40)
[2018-10-29] MEDS: HUMULIN R SUBQ SCH ×4 (06:43→22:54)
[2018-10-29 07:07] LABS: BASO# 0.02 X1000 (0.0-0.2); BASO% 0.2 % (0.0-0.8); EOS# 0.73 X1000 (0.0-0.7); EOS% 6.7 % (0.0-10.0); HEMATOCRIT 28.5 % (42.0-52.0); IMM GRAN# 0.05 X1000 (0.0-0.04); IMM GRAN% 0.5 % (0.0-0.5); LYMPH% 18.5 % (20.5-51.1); MCH 27.5 PG (27-31); MCHC 31.6 g/dL (33-37); MCV 87.2 FL (81-99); MONO# 0.84 X1000 (0.11-0.59); MONO% 7.8 % (1.7-9.3); MPV 9.9 FL (7.4-10.4); NEUT# 7.19 X1000 (1.4-6.5); NEUT% 66.3 % (42.2-75.2); PLT 294 X1000 (130-400); RBC 3.27 XMIL (4.7-6.1); WBC 10.83 X1000 (4.8-10.8)
[2018-10-29 07:12] LABS: AGAP 13; BUN 8 mg/dL (8-22); CALCIUM 8.6 mg/dL (8.8-10.2); CHLORIDE 104 mmol/L (98-107); COSMO 273; CREATININE 0.8 mg/dL (0.7-1.2); ESTIMATED GFR > 60; GLUCOSE 140 mg/dL (70-104); MAGNESIUM 1.4 mg/dL (1.5-2.7); POTASSIUM 3.5 mmol/L (3.5-5.1); SODIUM 136 mmol/L (136-145); TCO2 19 mmol/L (25-35)
[2018-10-29] MEDS: VITAMIN B-12 PO SCH (10:32)
[2018-10-29] MEDS: CENTRUM SILVER PO SCH (10:32)
[2018-10-29] MEDS: LOPRESSOR PO SCH (10:32)
[2018-10-29] MEDS: ASPIRIN EC PO SCH (10:33)
[2018-10-29] MEDS: MS CONTIN PO SCH ×2 (10:33→21:00)
[2018-10-29] MEDS: DIFICID PO SCH ×2 (10:33→20:38)
[2018-10-29] MEDS: MAG-OX PO SCH ×2 (10:33→20:38)
[2018-10-29] MEDS: SODIUM CHLORIDE 0.9% INJ SCH (10:34)
[2018-10-29] MEDS: PROTONIX IV SCH (10:34)
[2018-10-29] MEDS: SANTYL OINT TOP SCH (10:34)
[2018-10-29] MEDS: MAGNESIUM SULFATE 2 GM/S.W.I. 2 GM/50 ML IVPB IV SCH ×3 (12:18→20:37)
--- NOTE | 2018-10-29 14:31 | PROGRESS NOTE ---
DATE: 10/29/2018 INTERVAL HISTORY: Patient was transferred from [facility] to routine medical floor. He did not have any acute overnight events. SUBJECTIVE: He is feeling fine, denying any complaints. He is awake, alert, following simple commands. The patient's is at bedside. PHYSICAL EXAMINATION: Vital signs: Currently temperature of 98.9 degrees, pulse of 98, respiratory of 16, blood pressure 124/60, saturating 100% on room air. General: The patient does not appear in any acute distress. HEENT: Oral cavity is dry. Respiratory: Air entry bilaterally equal. No wheeze, rhonchi, crackles. Cardiovascular: S1, S2 normal. Regular. He has AICD pacemaker on left chest. No murmur, rub, or gallop. Abdomen: Soft, nontender. Active bowel sounds. Extremities: No lower extremity edema. On the right leg, he has wound of previous tibia-fibula surgical fracture intervention on the right upper anterior leg which is dressed. There is a minimally soaked and there is no active drainage at the moment. He also has about 5 cm in diameter around ischemic pressure ulcer of his right heel with a dressing on. Surgery team has been consulted on that. LABORATORY DATA: Suggestive of improving leukocytosis, normocytic anemia, normal platelet count, normal electrolytes except hypomagnesemia which is being repleted at the moment. MICROBIOLOGY: No new microbiological data. IMAGING: No new imaging. ASSESSMENT AND PLAN: 1. Acute encephalopathy because of Methicillin-resistant Staphylococcus aureus sepsis in September 2017 from right proximal leg wound infection with Methicillin-resistant Staphylococcus aureus; Clostridium difficile enterocolitis; electrolyte abnormalities. His acute encephalopathy seems to have pretty much resolved. He does have a few episodes of confusion here and there, which is likely in the setting of delirium. Neurology has been on board and has suggested to keep him off his Parkinson disease medications since currently he does not have any significant parkinsonian features and the carbidopa/levodopa could be contributing to psychosis to some extent, and we are holding that. 2. Sepsis due to right surgical wound site infection with methicillin-resistant Staphylococcus aureus and leading to Methicillin-resistant Staphylococcus aureus bacteremia in September 2017. The patient was sent home in September on intravenous daptomycin. However, this admission, we are continuing with intravenous ceftaroline because he had developed rhabdomyolysis and acute kidney injury to daptomycin. He would need a total of 8 weeks of intravenous antibiotics. The 4th day of negative blood culture was October 08. ID on board. He has a right-sided PICC line. 3. Acute Clostridium difficile Enterocolitis in the setting of antibiotics use. The patient has been on p.o. vancomycin and daptomycin. Continue that for a total of 10 to 14 days as per ID recommendation. 4. Right heel ischemic pressure ulcer. Continue soft padding and Santyl dressing as per Surgery recommendation. He would eventually need debridement of his wound later in the future when his acute issues resolve. Surgery on board. 5. Others. Continue atorvastatin for hyperlipidemia, metoprolol for history of heart failure with reduced ejection fraction, venlafaxine for insomnia. Remove the Villarreal catheter tomorrow. DISPOSITION: Since the patient would need intravenous ceftaroline and it is a costly antibiotic, he may not be a good candidate for rehab and so social work team has sent out LTAC referral to [facility] and to [facility]. Awaiting bed availability. Once a bed becomes available, I think patient should be able to be discharged to LTAC in the next 24 to 48 hours. He would go on intravenous antibiotics for his methicillin-resistant Staphylococcus aureus bacteremia and p.o. antibiotics for C difficile colitis as per ID. I am holding his Lasix which he was taking for heart failure considering he is currently appearing volume depleted with diarrhea associated with C difficile. I called Dr. Arias to inform him about the right-sided proximal tibia-fibula fracture surgical site wound MSSA infection'; however, Dr. Castillo was on-call and I informed him about that and considering that the patient's wound has dried out and is not draining a lot, he recommended continuing with IV antibiotics rather than surgical exploration. Plan of care was discussed with the patient's at bedside. All of her questions have been satisfactorily answered. cc: Travis Wren MD
--- NOTE | 2018-10-29 14:37 | PROGRESS NOTE ---
DATE: 10/29/2018 SUBJECTIVE: Mr. Umaña reports no headache. OBJECTIVE: He is awake, alert, attentive. He answered some simple questions appropriately. I did not test his cognitive function today. He has minimal tremulousness, but no definite resting tremor right now. There is paucity of facial expression. No new thoughts or new suggestions from Neurology standpoint. Would consider tapering amitriptyline as tolerated. Would continue to follow without dopaminergic medicines. Would consider cholinesterase inhibitor trial electively. Thanks for asking Neurology to see Mr. Umaña. cc: MD ARNAV Ospina III
[2018-10-29] MEDS: LOVENOX SUBQ SCH (16:06)
--- NOTE | 2018-10-29 16:54 | INFECTIOUS DISEASE PROGRESS NO ---
DATE: 10/29/2018 PRESENT ILLNESS: Mr. Umaña has a right leg infection growing methicillin- resistant Staph aureus with an associated bacteremia. There is also a right heel ulcer, which is being followed by surgery. Today his leukocytosis is improving. The patient is also being treated for a C- diff diarrhea. MEDICATIONS: He is receiving ceftaroline 600 mg IV every 12 hours. Based on his sterile blood cultures, today is day 21 of treatment for his bacteremia. He is also receiving Dificid 200 mg by mouth every 12 hours and vancomycin 125 mg orally four times a day. PHYSICAL EXAMINATION: Vital Signs: Temperature is 99 degrees, pulse rate 98, respiratory rate 16, blood pressure 124/60 O2 saturation 100% on room air. General: This is a an elderly, chronically ill-appearing gentleman. He is sitting up in bed, currently in no acute distress. HEENT: Atraumatic, normocephalic. Oral mucous membranes are pink and dry. Conjunctivae are pale. Neck: Supple. Trachea is midline. Cardiovascular: Heart rate and rhythm, underlying are regular with paced beats on the monitor as well as frequent ectopic beats. Respiratory: Lung sounds are clear and diminished bilaterally. Extremities: There is a PICC in place to his right upper arm. Site is without edema, erythema, or drainage. He also has dry, intact dressings to his right upper calf and right foot. Neurologic: He is awake, alert, and oriented to person only. He is cooperative and able to move his upper extremities fairly well in the bed. Off-loading boots are in place to bilateral lower extremities. LABORATORY AND X-RAY: Today his white count is 10.3, hemoglobin 9, platelet count 294,000, creatinine is 0.8. Estimated GFR is greater than 60. No imaging reports today. ASSESSMENT AND PLAN: Mr. Umaña is being treated for methicillin-resistant Staph aureus bacteremia and a right lower extremity infection. There is also a C difficile diarrhea. Today, he states the diarrhea has improved. There have been 2 stools documented so far for today. For now, we will continue ceftaroline as ordered as well as the oral vancomycin and Dificid for his C-diff diarrhea. These plans have been discussed with and recommended by Dr. Lane. COMORBIDITIES: For Mr. Umaña include that he is elderly with diabetes mellitus, congestive heart failure, coronary artery disease, and Parkinson's disease with confusion. Dictated by KIMO Luis for Gonzalo Lane MD This chart was documented by, KIMO Luis and accurately reflects the services performed, treatment plan and medical decisions as attested by the providers signature Gonzalo Lane MD. cc: Gonzalo Lnae MD [facility]
[2018-10-29] MEDS: EFFEXOR PO SCH (20:38)
[2018-10-29] MEDS: LIPITOR PO SCH (20:38)
[2018-10-30] MEDS: DUONEB (A & A) INH SCH ×6 (03:11→22:59)
[2018-10-30] MEDS: TEFLARO 600 MG in NS 250 ML IV SCH ×2 (03:45→16:03)
[2018-10-30] MEDS: VANCOCIN PO SCH ×4 (04:13→21:50)
[2018-10-30] MEDS: SYNTHROID PO SCH (06:03)
[2018-10-30] MEDS: HUMULIN R SUBQ SCH ×4 (06:04→21:51)
[2018-10-30 08:08] LABS: AGAP 13; BUN 7 mg/dL (8-22); CALCIUM 8.3 mg/dL (8.8-10.2); CHLORIDE 103 mmol/L (98-107); COSMO 274; CREATININE 0.7 mg/dL (0.7-1.2); ESTIMATED GFR > 60; GLUCOSE 205 mg/dL (70-104); MAGNESIUM 1.9 mg/dL (1.5-2.7); POTASSIUM 3.2 mmol/L (3.5-5.1); SODIUM 135 mmol/L (136-145); TCO2 19 mmol/L (25-35)
[2018-10-30 08:10] LABS: BASO# 0.03 X1000 (0.0-0.2); BASO% 0.3 % (0.0-0.8); EOS# 0.58 X1000 (0.0-0.7); EOS% 6.7 % (0.0-10.0); HEMATOCRIT 28.1 % (42.0-52.0); HEMOGLOBIN 8.8 g/dL (14.0-18.0); IMM GRAN# 0.04 X1000 (0.0-0.04); IMM GRAN% 0.5 % (0.0-0.5); LYMPH# 1.54 X1000 (1.2-3.4); LYMPH% 17.8 % (20.5-51.1); MCH 27.1 PG (27-31); MCHC 31.3 g/dL (33-37); MCV 86.5 FL (81-99); MONO# 0.64 X1000 (0.11-0.59); MONO% 7.4 % (1.7-9.3); NEUT% 67.3 % (42.2-75.2); PLT 310 X1000 (130-400); RBC 3.25 XMIL (4.7-6.1); RDW 12.8 % (11.5-14.5); WBC 8.63 X1000 (4.8-10.8)
[2018-10-30] MEDS: LOPRESSOR PO SCH (09:37)
[2018-10-30] MEDS: DIFICID PO SCH ×2 (09:37→21:50)
[2018-10-30] MEDS: VITAMIN B-12 PO SCH (09:37)
[2018-10-30] MEDS: SANTYL OINT TOP SCH (09:37)
[2018-10-30] MEDS: CENTRUM SILVER PO SCH (09:37)
[2018-10-30] MEDS: MS CONTIN PO SCH ×2 (09:37→21:00)
[2018-10-30] MEDS: PEPCID PO SCH (09:37)
[2018-10-30] MEDS: ASPIRIN EC PO SCH (09:37)
--- NOTE | 2018-10-30 11:12 | PROGRESS NOTE ---
DATE: 10/30/2018 Mr. Umaña appears very calm and comfortable right now. He was attentive and had some brief appropriate conversation with me. He continues disoriented. i did not test his cognitive function thoroughly today. at the bedside reports transfer expected later today. I do not have any new suggestion. I will be glad to see Mr. Umaña as an outpatient, if needed. Thanks for asking Neurology to see him here. cc: Shaina Kline III, MD MTDDie[facility]
--- NOTE | 2018-10-30 15:13 | PROGRESS NOTE ---
DATE: 10/30/2018 INTERVAL HISTORY: The patient remains disoriented, but conversive, pleasant, cooperative. No acute events overnight. No new complaints. REVIEW OF SYSTEMS: Twelve point review of systems negative, except as per interval history. LABS: WBC 8.6, hemoglobin 9.8, hematocrit 28.1, platelets 310. Sodium 135, potassium 3.2, bicarbonate 19. BUN 7, creatinine 0.7, blood glucose 205, calcium 8.3, magnesium 1.9. OBJECTIVE: Vitals: Temperature 97.8 degrees, pulse 81, respirations 17, blood pressure 141/68, O2 saturation 100% on room air. General: On physical examination, no acute distress. Vitals as above. HEENT: Normocephalic, atraumatic. Neck: No cervical adenopathy. Cardiovascular: Regular rate and rhythm. No murmurs noted. AICD on left upper chest. Pulmonary: Clear to auscultation bilaterally. No wheezing, rales, or rhonchi noted. Abdomen: Soft, nontender, nondistended. Bowel sounds positive. Extremities: Peripheral pulses decreased, but intact. No clubbing, cyanosis, or edema. Right tib-fib surgical incision is dressed. Dressing clean, dry, intact. Right heel ulcer bandaged. Bandage clean, dry, intact. Neurologic: Cranial nerves grossly intact. No focal deficits identified. Psychiatric: Normal mood and affect. Cooperative. Has reasonable responses to most questions, but oriented only to person. Skin: No new rashes or lesions identified, except as above. ASSESSMENT AND PLAN: 1. Metabolic encephalopathy: significantly improved, but remains disoriented. Likely secondary to infection. Methicillin-resistant Staphylococcus aureus sepsis from right leg wound infection in the setting of underlying dementia. Remains generally disoriented, but no longer encephalopathic. Neurology has been following and has no further suggestions. Wants us to keep him off his Parkinson medicines as he does not have significant parkinsonian features. 2. Methicillin-resistant Staphylococcus aureus bacteremia, right surgical site wound infection: Patient with previous and admission for methicillin-resistant Staphylococcus aureus bacteremia September of 2018. The patient was sent home on intravenous daptomycin. During this admission, transition to intravenous ceftaroline as he developed rhabdomyolysis and acute kidney injury thought to be related to his daptomycin therapy. Infectious Disease on board and managing. The plan is for a total of 8 weeks of intravenous antibiotics starting October 08. PICC line in place and appears to be tolerating ceftaroline. 3. Clostridium difficile colitis. Patient on oral vancomycin, and will need that for a total of 14 days. 4. Right heel ulcer. Continue wound care. 5. Hyperlipidemia. Continue atorvastatin. 6. Chronic systolic congestive heart failure. No signs of exacerbation. Continue metoprolol. Will restart Entresto prior to discharge as kidney injury has resolved. 7. Hypothyroidism. Continue Synthroid. 8. Situational depression. Continue Effexor. DISPOSITION: The patient will need extended course of IV ceftaroline. LTAC placement pending. Likely will have bed tomorrow according to social work. If no further issues develop, then will plan on discharge to LTAC tomorrow. ARNAV
--- NOTE | 2018-10-30 15:36 | INFECTIOUS DISEASE PROGRESS NO ---
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 The patient also has Clostridium difficile diarrhea. MEDICATIONS: The patient is receiving ceftaroline for the methicillin-resistant Staphylococcus aureus infection. The patient has completed 22 days of treatment and will need 20 more days to complete a 6-week treatment course. As regarding the patient's Clostridium difficile, my plan is to treat with both p.o. vancomycin and Dificid for 11 more days to complete a 2-week treatment course and then discontinue Dificid and then continue vancomycin p.o. in a reduced dose of every 12 hours until the patient finishes his ceftaroline which would be 20 days away. PHYSICAL EXAMINATION: Vital Signs: Temperature is 97.8 degrees, pulse 81, respirations 17, blood pressure is 141/68. General: This is an elderly chronically ill-appearing male. He is in no acute distress. He is confused. Head, eyes, ears, nose, and throat: He does not have any drainage from the nose or ears. He does not have any white coating on his tongue. Neck: No stiffness. Lungs: Clear to auscultation. Cardiovascular: Heart rate is regular. Extremities: Patient has a PICC in his right arm. The site is not erythematous or swollen. Patient's right leg incision is healed, and there is no further drainage coming from the leg. Also, the leg is not erythematous. Neurologic: Patient is awake. As mentioned above, he is confused. DIAGNOSTIC STUDIES: There is no new radiographic study today. CBC shows a white count of 8630, hemoglobin 8.8, and platelet count 310,000. Creatinine is 0.7, GFR is greater than 60. ASSESSMENT AND PLAN: 1. 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 I plan to treat and continue ceftaroline for 20 more days. 2. Patient has Clostridium difficile. Plan to continue Dificid and vancomycin at current dose for 11 more days and then discontinue Dificid and decrease vancomycin p.o. to every 12 hours instead of every 6 hours. COMORBIDITIES: 1. This gentleman is elderly. 2. He has diabetes mellitus. 3. Congestive heart failure. 4. Parkinson's disease with confusion. 5. Coronary artery disease. cc: Gonzalo Lane MD
[2018-10-30] MEDS: LOVENOX SUBQ SCH (16:03)
[2018-10-30] MEDS: EFFEXOR PO SCH (21:50)
[2018-10-30] MEDS: LIPITOR PO SCH (21:50)
[2018-10-31] MEDS: DUONEB (A & A) INH SCH ×3 (03:00→11:19)
[2018-10-31] MEDS: TEFLARO 600 MG in NS 250 ML IV SCH (03:13)
[2018-10-31] MEDS: VANCOCIN PO SCH ×2 (03:13→08:53)
[2018-10-31] MEDS: SYNTHROID PO SCH (06:09)
[2018-10-31] MEDS: HUMULIN R SUBQ SCH ×2 (06:29→10:56)
[2018-10-31 07:21] LABS: BASO# 0.03 X1000 (0.0-0.2); BASO% 0.3 % (0.0-0.8); EOS# 0.47 X1000 (0.0-0.7); EOS% 5.4 % (0.0-10.0); HEMATOCRIT 29.7 % (42.0-52.0); HEMOGLOBIN 9.4 g/dL (14.0-18.0); IMM GRAN# 0.03 X1000 (0.0-0.04); IMM GRAN% 0.3 % (0.0-0.5); LYMPH# 1.65 X1000 (1.2-3.4); LYMPH% 18.9 % (20.5-51.1); MCH 27.2 PG (27-31); MCHC 31.6 g/dL (33-37); MCV 86.1 FL (81-99); MONO# 0.76 X1000 (0.11-0.59); MONO% 8.7 % (1.7-9.3); MPV 9.8 FL (7.4-10.4); NEUT# 5.81 X1000 (1.4-6.5); NEUT% 66.4 % (42.2-75.2); PLT 330 X1000 (130-400); RBC 3.45 XMIL (4.7-6.1); RDW 12.9 % (11.5-14.5); WBC 8.75 X1000 (4.8-10.8)
[2018-10-31] MEDS: PEPCID PO SCH (08:53)
[2018-10-31] MEDS: DIFICID PO SCH (08:53)
[2018-10-31] MEDS: LOPRESSOR PO SCH (08:53)
[2018-10-31] MEDS: MS CONTIN PO SCH (08:53)
[2018-10-31] MEDS: CENTRUM SILVER PO SCH (08:53)
[2018-10-31] MEDS: ASPIRIN EC PO SCH (08:53)
[2018-10-31] MEDS: VITAMIN B-12 PO SCH (08:53)
[2018-10-31] MEDS: SANTYL OINT TOP SCH (08:54)
--- NOTE | 2018-10-31 10:11 | PROGRESS NOTE ---
DATE: 10/31/2018 Mr. Umaña has been a little bit sleepy through the morning, but otherwise seems not significantly changed neurologically. He is a little bit tremulous, but there was not definite resting tremor now. He continues disoriented. I agree with plans for transfer. I will be glad to see Mr. Umaña again, if needed. cc: Shaina Kline III, MD [facility]
[2018-10-31] MEDS ORDERED: LASIX PO ONE (10:12)
--- NOTE | 2018-10-31 11:46 | DISCHARGE SUMMARY ---
ADMISSION DATE: 10/20/2018 DISCHARGE DATE: 10/31/2018 ADMISSION DIAGNOSIS: 1. Toxic metabolic encephalopathy, at the time source was unclear. 2. Acute kidney injury with mild hyperkalemia. 3. Sepsis, multiple possible sources of infection including peripherally inserted central catheter line, right lower leg incision, and questionable right lower lobe atelectasis on chest x-ray. 4. Rhabdomyolysis. 5. Diabetes mellitus type 2. 6. Hyponatremia. 7. Parkinson's. 8. Recent right tibia fracture post open reduction internal fixation. DISCHARGE DIAGNOSIS: 1. Metabolic encephalopathy significantly improved but remains disoriented likely secondary to methicillin-resistant Staphylococcus aureus sepsis from the right leg wound, infection in the setting of underlying dementia. No longer encephalopathic but still disoriented. 2. Methicillin-resistant Staphylococcus aureus bacteremia right surgical site wound infection of the right leg. Had a previous admission for methicillin-resistant Staphylococcus aureus bacteremia September 2018, was sent home on IV daptomycin and was placed on ceftaroline due to developing rhabdomyolysis on daptomycin and having acute kidney injury on top of daptomycin. Infectious Disease followed the patient. The plan was for 8 weeks total IV antibiotics starting 10/08, PICC line place, and tolerating ceftaroline. 3. Clostridium difficile colitis on oral vancomycin for a total of 14 days. The patient is also on Dificid 200 mg p.o. every 12 hours. 4. Right heel ulcer, received wound care, had a measurement of 3.2 x 3.7 x a little greater than 0, clean and applied Santyl and covered with dry dressing. Sacrum with red and superficial open areas, barrier cream, and WAFFLE overlay. 5. Hyperlipidemia. Continue atorvastatin. 6. Chronic systolic congestive heart failure, no exacerbation. Resume Entresto prior to discharge due to acute kidney injury resolution. 7. Acute kidney injury, resolved. 8. Hypothyroidism. Continue Synthroid. 9. Situational depression. Continue Effexor. 10.Rhabdomyolysis, resolved. 11.Sepsis, resolved. 12.Diabetes mellitus type 2, glucoses and sliding scale insulin. Glucose is controlled. 13.Parkinson's. The patient is not on Sinemet. 14.Chronic pain syndrome. Continued on 15 of MS Contin twice a day. CONSULTATIONS: 1. Markel Ross MD. 2. Gonzalo Lane MD. 3. Soco Matias MD. 4. Jocelynn Fernandez MD. 5. [facility] in [place]. 6. Wound Care. SURGERIES OR PROCEDURES: None. HOSPITAL COURSE: Mr. Luis Fernando Umaña is an 83-year-old male, who is discharged from our service for MRSA bacteremia prior to this admission, also had UTI with Klebsiella pneumonia and recent ORIF of the tibia. At that time, he was discharged with a PICC line on daptomycin for 8 weeks. Apparently since the time of discharge, he became progressively more confused every day, and so she had brought him to the ER on the day of admission. There was no reports of fevers, nausea, vomiting, chest pain, or cough. He did have some mild diarrhea with 3 bowel movements 2 days prior to admit and one the day before admit. He also had complaints of dysuria but that improved with [id number] Azo. Head CT was negative. Labs showed metabolic abnormalities with acute kidney injury and rhabdomyolysis along with hyponatremia and hyperkalemia and also showed some leukocytosis, was hypotensive with a blood pressure in the 80s, was transferred to ICU for sepsis treatment. For the toxic metabolic encephalopathy throughout his stay essentially resolved after metabolites had returned to normal. He still has some confusion though or disorientation even today prior to discharge. He was eventually resumed on his scheduled morphine. The daptomycin was stopped. He was started I believe Teflaro and Dr. Lane was consulted. There were several areas of possible source for infection including PICC line, right lower leg extremity incision. There was some atelectasis on the chest x-ray. He was cultured up and on his right leg wound culture it was positive for oxacillin-resistant Staphylococcus aureus, also resistant to erythromycin and penicillin as well and that culture was obtained on 10/23. He had a positive C. difficile antigen and toxin both on 10/25/2018 and was initiated on oral vancomycin. At that time, he was initiated on Dificid 200 mg p.o. every 12 hours along with oral vancomycin 125 mg as well. For the MRSA bacteremia, on the his dosing was changed. He was started on ceftaroline on admission and continued that throughout. For his wounds like his sacrum and on his heel, he received Calmoseptine ointment on the sacrum and barrier cream and then he had Santyl ointment for the heel with a dry dressing applied. His rhabdomyolysis resolved after stopping the daptomycin and given IV fluids along with the acute kidney injury also resolved as well. On the , he was seen by Dr. Arias due to right lower extremity recent surgery and said that if the knee started to develop more drainage or swelling with inflammation and redness then they would consider opening up the incision site and draining the knee with a washout. He was seen by Dr. Fernandez on the for the right heel wound. There was no cellulitis or signs of infection and his only recommendation was Santyl debridement. Ultimately, he never required opening of the knee. Upon discharge, he will be continued on IV ceftaroline for the Staph infection and p.o. vancomycin and Dificid for the diarrhea per Dr. Lane. It looks like due to the confusion or the altered mental state, on 10/24 he was seen by Dr. Kline. He is one that held the Carbidopa Levodopa and other than that there was no other new recommendation. Today, he has qualified for L-TAC and has a bed in [place]. The Lasix during his stay was held due to volume depletion due to the diarrhea. The wound on his knee was discussed by Dr. Wren to Dr. Castillo that the site was not draining a lot and the only recommendation was IV antibiotic rather than surgical exploration. DISCHARGE VITAL SIGNS: Temperature 98.0, heart rate 98, respiratory rate 18, blood pressure 146/56, O2 saturation 96% on room air. DISCHARGE LAB DATA: White blood cells 8000, hemoglobin 9, hematocrit 29, platelet count 330. BMP yesterday: Sodium 135, potassium 3.2, BUN 7, creatinine 0.7, glucose today is 239. PERTINENT IMAGING: On admission, he had a chest x-ray, these images are on 10/20/2018 chest x- ray: Questionable right lower lobe atelectasis. Head CT: No acute disease or change from prior. Foot x-ray: right heel decubitus, no acute disease. Right knee x-ray: No change from prior. Lower extremity x-ray: No distal fractures. On 10/21/2018 chest x-ray: Improved right basilar atelectasis. Renal ultrasound: Apparent nonspecific 6 mm cortical calcification mid left kidney, no other renal abnormality, no hydronephrosis. On 10/26/2018, abdominal x-ray: Nonspecific abdomen. EKG on admission: Ventricularly paced rhythm, rate was 101. EKG repeated on 10/26: Atrial sensed ventricularly paced rhythm, continues 97 rate. DISCHARGE DIET: Diabetic diet with Glucerna shakes with each meal, also Orion packet twice a day. DISCHARGE ACTIVITY: As tolerated. WOUND CARE: Right heel eschar is now softening and measures 3.2 x 3.7 x greater than 0, cleaned with Santyl, covered with dry dressing. Soft tissue injury of the sacrum is improving, sacrum is red with superficial red opened areas with the largest measuring 0.4 x 0.4 x less than 0.1, entire area measuring 8 x 7 x 0.1, and so on the sacrum recommend continued use of barrier cream and WAFFLE overlay. DISCHARGE MEDICATIONS: 1. Dificid 200 mg p.o. twice a day. 2. Teflaro 600 mg IV q.12 hours. 3. Vancomycin 125 mg p.o. every 6 hours. 4. Aspirin 81 mg p.o. daily. 5. Centrum Silver 1 tablet p.o. daily. 6. Effexor 75 mg p.o. nightly. 7. Entresto 24-26 1 tablet p.o. twice daily. 8. Fish oil 1200 mg p.o. daily. 9. Potassium extended release 10 mEq p.o. daily. 10.Lasix 40 mg p.o. daily. 11.Lipitor 20 mg p.o. nightly. 12.Protonix 40 mg p.o. daily. 13.Spironolactone 25 mg p.o. daily. 14.Synthroid 50 mcg p.o. daily. 15.Vitamin B12 2500 mcg p.o. daily. 16.Zyprexa 5 mg p.o. nightly. 17.Insulin 2 units subcutaneous 3 times a day. 18.Lantus insulin 15 units subcutaneous daily. 19.Metoprolol 25 mg p.o. daily. 20.MiraLAX 17 g half to one capful daily. 21.MS Contin 15 mg p.o. looks like t.i.d. here. 22.Sinemet 25/100 1 p.o. 4 times a day. DISCHARGE FOLLOWUP: 1. Dr. Dez Galicia. 2. Dr. Kline. 3. Dr. Gonzalo Lane. 4. Dr. Harman Arias. 5. Dr. Mateusz Fernandez. DISCHARGE INSTRUCTIONS: 1. Follow instructions of long-term acute care facility. 2. Wound care per right heel and sacrum and right knee. 3. Medications as prescribed for C. difficile and bacteremia. 4. Dr. Gonzalo Lane last note was on the and at that time he put MRSA right leg osteomyelitis and bacteremia. The plan was to treat and continue with Teflaro for 20 more days so now it would not 19 more days and for the C. difficile to continue the Dificid and vancomycin oral for 11 more days, so that would make it 10 more days starting today. 5. Also was recommended for vancomycin to be decreased p.o. to every 12 hours instead of every 6. DISCHARGE DISPOSITION: L-TAC in [place]. Dictated by KIMO Tomlin for Asael Franks MD cc: KIMO Tomlin MD [facility]
--- NOTE | 2018-10-31 11:55 | DISCHARGE SUMMARY ---
ADMISSION DATE: 10/20/2018 DISCHARGE DATE: HISTORY: The patient is seen the day of discharge. He seems to be doing pretty well. No major issues. He definitely has some swelling, but overall he has improved. No complaints. He says he feels fine. OBJECTIVE DATA: His blood pressure is 146/56, heart rate 86, respiratory rate of 19, temperature 98 degrees, and 94% on room air. Cardiovascular: Regular rate and rhythm. Pulmonary: Bilateral breath sounds. Clear to auscultation. GI: Soft, nontender, and nondistended. Bowel sounds are positive. LABORATORY: White count 8, hemoglobin and hematocrit 9 and 29, and platelets 330,000. Glucose 239. IMPRESSION: 1. Metabolic encephalopathy. We will continue treatment and follow. Overall, I think he seems improved. 2. MRSA Staph aureus. He is on Teflaro per Dr. Lane's recommendations for total of 8 weeks, which I think he has another 20 days based on the note from yesterday for osteo and bacteremia. 3. Clostridium difficile colitis. He is on Dificid and vanco for another 10 days, and then we will need to decrease the vancomycin q.12 every 6 hours. Arrangements have been made to pursue LTAC. I think he is stable for discharge. This is a [id number] encounter note with KIMO Tomlin discharge summary has further details. TIME SPENT: 32 minute discharge. cc: Asael Franks MD
[2018-10-31 13:32] VITALS: BP 114/72
--- NOTE | 2018-10-31 15:32 | Extremity Venous Study ---
PROCEDURE NAME: Venous U/S Right Arm - 10/28/2018 REFERRING PHYSICIAN: Dr. Wren. READING PHYSICIAN: Dr. Perez. INDICATIONS: Arm swelling. FINDINGS: There is a PICC line in the right basilic vein, so the basilic vein has some limited views. The cephalic vein was unable to be identified. The right internal jugular, subclavian, axillary, brachial and basilic veins were imaged. They are compressible, patent and without thrombus. INTERPRETATION: There is no evidence of DVT or SVT of the right upper extremity. cc: MD Travis Batista MD
== END 2018-10-31 16:01 | DRG 559 ==
LOC: SUPCPDRO → ED 13:47 → ICU 16:44 → SUATTDRO 16:44 → 3S 10-22 22:38 → 3N 10-28 18:07
PROVIDERS: ATTEND Internal Medicine
CPT/HCPCS: 51702; 70450; 71010; 71020; 71045; 71046; 73560; 73590; 73620; 74019; 74020; 76770; 80048; 80053; 81001; 82550; 82553; 82570; 82948; 83605; 83735; 83880; 83935; 84100; 84156; 84300; 84484; 85025; 85379; 87040; 87070; 87077; 87088; 87186; 87275; 87276; 87324; 87449; 87804; 93005; 93010; 93970; 93971; 94640; 94761; 94762; 96361; 96365; 97110; 97140; 97162; 97530; 99285; 99291; A9270; C9113; J0712; J1650; J2543; J3370; J3475; J3480; J7030; J7050; J7120; S0030; S0164; XXXXX